=== PATIENT | male | born 1970 | race Caucasian/White ===

== ENCOUNTER 2017-06-21 11:23 | Inpatient (IN) | payer MEDICARE ==
--- NOTE | 2017-06-21 12:00 | ED Physician Documentation ---
PD HPI URI - Stated complaint Stated Complaint: COUGH - Chief complaint Chief Complaint: Cardiac - History obtained from History obtained from: Patient - History of Present Illness Timing - onset: How many weeks ago (2) Timing duration: Weeks (2) Timing details: Gradual onset, Still present Associated symptoms: Fever, Chills, Productive cough, Dyspnea. No: NVD, Bilateral edema Contributing factors: Travel (was ill in [place] and in hospital. Discharged and flew here to be with his brother for recovery. Got ill again after arrival here 3 days ago.) Improves by: No: Rest Worsened by: Activity Recently seen: Emergency Dept, Admitted (for pneumonia in [place], [place] ( [facility]).) Review of Systems Constitutional: denies: Fever, Chills Nose: reports: Rhinorrhea / runny nose, Congestion Throat: denies: Sore throat Cardiac: denies: Chest pain / pressure Respiratory: reports: Dyspnea, Cough, Wheezing GI: denies: Nausea, Vomiting, Diarrhea : denies: Dysuria Skin: denies: Rash, Lesions Musculoskeletal: denies: Neck pain, Back pain Neurologic: reports: Generalized weakness. denies: Focal weakness, Numbness, Near syncope Endocrine: reports: Easy bruising / bleeding. denies: Weight loss Immunocompromised: denies: Immunocompromised PD PAST MEDICAL HISTORY - Past Medical History Cardiovascular: Atrial fibrillation Respiratory: Asthma, Pneumonia Neuro: None Endocrine/Autoimmune: Type 2 diabetes - Present Medications Home Medications: Ambulatory Orders Medication Instructions Recorded Confirmed Aspirin [Adult Low Dose Aspirin EC] 81 mg PO DAILY 06/21/17 06/21/17 Bisoprolol Fumarate 10 mg PO DAILY 06/21/17 06/21/17 Digoxin 250 mg PO DAILY 06/21/17 06/21/17 Saxagliptin HCl/Metformin HCl 2.5 - 1,000 mg PO DAILY 06/21/17 06/21/17 [Kombiglyze Xr 2.5-1,000 mg Tab] Warfarin Sodium [Coumadin] 2 mg PO DAILY 06/21/17 06/21/17 - Allergies Allergies/Adverse Reactions: Allergies Allergy/AdvReac Type Severity Reaction Status Date / Time Penicillins Allergy Intermediate Rash Verified 06/21/17 12:07 - Family History Family history: reports: Non contributory PD ED PE NORMAL - Vitals Vital signs reviewed: Yes (low oxygen at 86-88% RA; improves on oxygen NC. ) - General General: Alert and oriented X 3, No acute distress, Well developed/nourished - HEENT HEENT: Ears normal, Pharynx benign - Neck Neck: Supple, no meningeal sign, No adenopathy - Respiratory Respiratory: No: Clear bilaterally (decreased left base with wheezing noted and local coarse sounds. ) - Abdomen Abdomen: Normal bowel sounds, Soft, Non tender, Non distended - Male Male : Deferred - Rectal Rectal: Deferred - Back Back: No CVA TTP - Derm Derm: Normal color - Extremities Extremities: No deformity, No tenderness to palpate, No calf tenderness / cord, Other (1+ edema in legs. ) Results - Vitals Vitals: Oxygen O2 Source Nasal cannula - Labs Labs: Microbiology 06/21/17 13:42 Blood Culture - Preliminary Blood NO GROWTH AFTER 1 DAY 06/21/17 11:50 Blood Culture - Preliminary Blood NO GROWTH AFTER 1 DAY 06/21/17 12:50 Gram Stain - Final Mouth Laboratory Tests 06/21/17 06/21/17 06/21/17 11:50 11:50 11:50 WBC 14.4 H RBC 3.84 L Hgb 9.3 L Hct 29.9 L MCV 77.8 L MCH 24.3 L MCHC 31.3 L RDW 17.7 H Plt Count 471 H MPV 8.5 Neut # 12.3 H Lymph # 0.8 L [place] # 1.2 H Eos # 0.0 Baso # 0.1 Absolute Nucleated RBC 0.01 Nucleated RBC % 0.1 PT INR Sodium 136 Potassium 4.8 Chloride 95 L Carbon Dioxide 27 Anion Gap 14.0 H BUN 10 Creatinine 0.8 Estimated GFR (MDRD) 103 Glucose 173 H POC Whole Bld Glucose Glycated Hemoglobin Estim Average Glucose Lactic Acid 2.0 Calcium 9.2 Magnesium 2.4 Total Bilirubin 1.4 H AST 102 H ALT 91 H Alkaline Phosphatase 244 H Total Protein 8.6 H Albumin 2.4 L Globulin 6.2 H Albumin/Globulin Ratio 0.4 L Lipase 28 Urine Color Urine Clarity Urine pH Ur Specific [place] Urine Protein Urine Glucose (UA) Urine Ketones Urine Occult Blood Urine Nitrite Urine Bilirubin Urine Urobilinogen Ur Leukocyte Esterase Urine RBC Urine WBC Ur Squamous Epith Cells Urine Bacteria Ur Microscopic Review Urine Culture Comments Last Dose Date Last Dose Time Digoxin Serum Ketones NEGATIVE 1206/21/17 06/21/17 11:50 11:53 11:55 WBC RBC Hgb Hct MCV MCH MCHC RDW Plt Count MPV Neut # Lymph # [place] # Eos # Baso # Absolute Nucleated RBC Nucleated RBC % PT INR Sodium Potassium Chloride Carbon Dioxide Anion Gap BUN Creatinine Estimated GFR (MDRD) Glucose POC Whole Bld Glucose 164 H Glycated Hemoglobin 8.8 H Estim Average Glucose 206 H Lactic Acid Calcium Magnesium Total Bilirubin AST ALT Alkaline Phosphatase Total Protein Albumin Globulin Albumin/Globulin Ratio Lipase Urine Color Urine Clarity Urine pH Ur Specific [place] Urine Protein Urine Glucose (UA) Urine Ketones Urine Occult Blood Urine Nitrite Urine Bilirubin Urine Urobilinogen Ur Leukocyte Esterase Urine RBC Urine WBC Ur Squamous Epith Cells Urine Bacteria Ur Microscopic Review Urine Culture Comments Last Dose Date UNKNOWN Last Dose Time UNKNOWN Digoxin 0.8 Serum Ketones 06/21/17 06/21/17 12:42 13:05 WBC RBC Hgb Hct MCV MCH MCHC RDW Plt Count MPV Neut # Lymph # [place] # Eos # Baso # Absolute Nucleated RBC Nucleated RBC % PT 70.1 H INR 6.7 H* Sodium Potassium Chloride Carbon Dioxide Anion Gap BUN Creatinine Estimated GFR (MDRD) Glucose POC Whole Bld Glucose Glycated Hemoglobin Estim Average Glucose Lactic Acid Calcium Magnesium Total Bilirubin AST ALT Alkaline Phosphatase Total Protein Albumin Globulin Albumin/Globulin Ratio Lipase Urine Color DARK YELLOW Urine Clarity CLEAR Urine pH 8.0 H Ur Specific [place] 1.020 Urine Protein 100 H Urine Glucose (UA) NEGATIVE Urine Ketones NEGATIVE Urine Occult Blood NEGATIVE Urine Nitrite NEGATIVE Urine Bilirubin NEGATIVE Urine Urobilinogen 4 H Ur Leukocyte Esterase NEGATIVE Urine RBC 0-5 Urine WBC 4-5 Ur Squamous Epith Cells RARE Squamous Urine Bacteria Rare Ur Microscopic Review INDICATED Urine Culture Comments NOT INDICATED Last Dose Date Last Dose Time Digoxin Serum Ketones - Rads (name of study) chest Radiology: Prelim report reviewed (considerable infiltrate and consolidation left lower lobe c/w pneumonia. ), EMP read contemporaneously PD MEDICAL DECISION MAKING - ED course Complexity details: reviewed old records (from [place], was hospitalized and Rx Levaquin IV for 3 days. ), reviewed results, considered differential, d/w patient, d/w library sales consultant Departure - Departure Disposition: 66 [facility] DC/Xfer Clinical Impression: Elevated INR, Hypoxia Atrial fibrillation Qualifiers: Atrial fibrillation type: chronic Qualified Code(s): I48.2 - Chronic atrial fibrillation Pneumonia Qualifiers: Pneumonia type: due to unspecified organism Laterality: left Lung location: lower lobe of lung Qualified Code(s): J18.1 - Lobar pneumonia, unspecified organism Dyspnea Qualifiers: Dyspnea type: shortness of breath Qualified Code(s): R06.02 - Shortness of breath Condition: Stable Record reviewed to determine appropriate education?: Yes Discharge Date/Time: 06/21/17 14:33
[2017-06-21] MEDS ORDERED: ACETAMINOPHEN 325 MG TABLET PO STA (12:25)
[2017-06-21] MEDS ORDERED: IPRATROPIUM/ALBUTEROL 3 ML NEB INH STA (12:40)
[2017-06-21 12:48] LABS: BASOPHILS # (AUTO) 0.1 10^3/uL (0.0-0.1); BASOPHILS % (AUTO) 0.9 %; EOSINOPHILS % (AUTO) 0.3 %; HGB - HEMOGLOBIN 9.3 g/dL (14.0-18.0); LYMPHOCYTES # (AUTO) 0.8 10^3/uL (1.5-3.5); LYMPHOCYTES % (AUTO) 5.6 %; MEAN CORPUSCULAR HEMOGLOBIN 24.3 pg (27.0-31.0); MEAN CORPUSCULAR HGB CONC 31.3 g/dL (32.0-36.0); MEAN CORPUSCULAR VOLUME 77.8 fL (80.0-94.0); MEAN PLATELET VOLUME 8.5 fL (7.4-11.4); MONOCYTES # (AUTO) 1.2 10^3/uL (0.0-1.0); MONOCYTES % (AUTO) 8.4 %; NEUTROPHILS # (AUTO) 12.3 10^3/uL (1.5-6.6); NEUTROPHILS % (AUTO) 84.8 %; PLT - PLATELET COUNT 471 10^3/uL (130-450); RED BLOOD COUNT 3.84 10^6/uL (4.70-6.10); RED CELL DISTRIBUTION WIDTH 17.7 % (12.0-15.0); WHITE BLOOD COUNT 14.4 x10^3/uL (4.8-10.8)
[2017-06-21 12:58] LABS: KETONES, SERUM (ACETEST) NEGATIVE (NEGATIVE)
[2017-06-21 12:59] LABS: ALBUMIN 2.4 g/dL (3.2-5.5); ALBUMIN/GLOBULIN RATIO 0.4 (1.0-2.2); ALKALINE PHOSPHATASE 244 IU/L (42-121); ALT ALANINE AMINOTRANSFERASE 91 IU/L (10-60); AST ASPARTATE AMINOTRANSFERASE 102 IU/L (10-42); BILIRUBIN,TOTAL 1.4 mg/dL (0.2-1.0); BUN - BLOOD UREA NITROGEN 10 mg/dL (6-20); CALCIUM 9.2 mg/dL (8.5-10.3); CARBON DIOXIDE - CO2 27 mmol/L (21-32); CHLORIDE 95 mmol/L (101-111); CREATININE 0.8 mg/dL (0.6-1.2); GFR - MDRD 103 (>89); GLUCOSE 173 mg/dL (70-100); LIPASE 28 U/L (22-51); MAGNESIUM 2.4 mg/dL (1.7-2.8); SODIUM 136 mmol/L (135-145); TOTAL PROTEIN 8.6 g/dL (6.7-8.2)
[2017-06-21 13:01] LABS: DIGOXIN 0.8 ng/mL
[2017-06-21 13:03] LABS: PT - PROTHROMBIN TIME 70.1 secs (9.9-12.6)
[2017-06-21 13:06] LABS: INR 6.7 (0.8-1.2)
--- NOTE | 2017-06-21 13:07 | XRAY Report ---
EXAM: CHEST RADIOGRAPHY EXAM DATE: 06/21/2017 12:59 PM. CLINICAL HISTORY: Cough. COMPARISON: None. TECHNIQUE: 2 views. FINDINGS: Lungs/Pleura: Extensive consolidation and partial atelectasis of left lower lobe probably with mild l eft pleural effusion. The right lung is clear. No pneumothorax. No vascular congestion. Mediastinum: No cardiomegaly. The left hilum is obscured. The right hilum and superior mediastinum ar e normal. Other: None. IMPRESSION: Extensive consolidation and partial atelectasis of left lower lobe probably with mild lef t pleural effusion. Findings may be due to lobar pneumonia. Follow-up after treatment is recommended to assure resolution and to rule out any possible occult mass lesion. If there is persistent opacity, CT chest will have to be considered. [facility] Referring Provider Line: [phone] SITE ID: [id number]
--- NOTE | 2017-06-21 13:07 | XRAY Preliminary Report ---
Exam: XR CHEST 2 VIEW PA/LAT IMPRESSION: Extensive consolidation and partial atelectasis of left lower lobe probably with mild lef t pleural effusion. Findings may be due to lobar pneumonia. Follow-up after treatment is recommended to assure resolution and to rule out any possible occult mass lesion. If there is persistent opacity, CT chest will have to be considered. [facility] SITE ID: [id number]
[2017-06-21 13:25] LABS: GLUCOSE, URINE (UA) NEGATIVE (NEGATIVE); KETONES,URINE (UA) NEGATIVE (NEGATIVE); LEUKOCYTE ESTERASE, URINE NEGATIVE (NEGATIVE); NITRITE,URINE NEGATIVE (NEGATIVE); OCCULT BLOOD,URINE NEGATIVE (NEGATIVE); PROTEIN,URINE 100 mg/dL (NEGATIVE); UROBILINOGEN,URINE 4 E.U./dL (NORMAL)
[2017-06-21 13:26] LABS: CLARITY,URINE CLEAR (CLEAR)
[2017-06-21 13:31] LABS: BILIRUBIN,URINE NEGATIVE (NEGATIVE); ICTOTEST,URINE NEGATIVE
[2017-06-21 13:41] LABS: RBC,URINE 0-5 /HPF (0-5); SQUAMOUS EPITHELIAL CELL,UR RARE Squamous (<= Few)
[2017-06-21] MEDS ORDERED: TEMAZEPAM 15 MG CAPSULE PO PRN (13:50)
[2017-06-21] MEDS ORDERED: HYDROcod/ACETAM 5/325 MG TABLET PO PRN (13:50)
[2017-06-21 14:29] LABS: HB2 TOTAL 10.2 g/dL; HEMOGLOBIN A1C 0.74 g/dL; HEMOGLOBIN A1C % 8.8 % (4.6-6.2)
[2017-06-21] MEDS: levoFLOXacin 750 MG/150 ML 750 MG/150 ML BAG IV SCH (15:38)
[2017-06-21] MEDS: INSULIN ASPART 300 UNIT/3 ML PEN SUBQ SCH ×2 (16:47→21:07)
[2017-06-21] MEDS: CEFEPIME 2 GM in SODIUM CHLORIDE 0.9% MINIBAG 100 ML IV SCH ×2 (17:18→21:05)
[2017-06-21] MEDS: SODIUM CHLORIDE FLUSH 0.9% 10 ML SYRINGE IVP PRN ×2 (17:52→21:44)
[2017-06-21] MEDS: ACETAMINOPHEN 325 MG TABLET PO PRN (19:32)
[2017-06-21] MEDS ORDERED: IOPAMIDOL-300 100 ML VIAL ONE (19:44)
[2017-06-21] MEDS ORDERED: IOPAMIDOL-300 50 ML VIAL ONE (19:45)
[2017-06-21] MEDS: SODIUM CHLORIDE FLUSH 0.9% 10 ML SYRINGE IVP SCH (21:05)
[2017-06-21] MEDS ORDERED: IOPAMIDOL-300 50 ML VIAL PO ONE (21:24)
[2017-06-21] MEDS ORDERED: IOPAMIDOL-300 100 ML VIAL IVP ONE (21:24)
--- NOTE | 2017-06-21 22:03 | CT Preliminary Report ---
Exam: CT CHEST W/ IMPRESSION: 1. Posterior loculated left pleural effusion with extensive posterior left lower lobe consolidation a nd scattered atelectasis in the remaining left lung. 2. Clear right lung. 3. Scattered borderline mediastinal lymph nodes, likely reactive. [facility] SITE ID: [id number]
--- NOTE | 2017-06-21 22:04 | CT Report ---
EXAM: CT CHEST EXAM DATE: 06/21/2017 09:36 PM. CLINICAL HISTORY: Dense pneumonia on CXR. COMPARISONS: None. TECHNIQUE: Routine helical CT imaging was performed through the chest. IV contrast: None. Reconstruct ions: Coronal and sagittal. In accordance with CT protocol optimization, one or more of the following dose reduction techniques w ere utilized for this exam: automated exposure control, adjustment of mA and/or KV based on patient s ize, or use of iterative reconstructive technique. FINDINGS: Lungs/Pleura: Loculated posterior left-sided effusion, with significant volume loss and consolidation in the posterior left lower lobe. Mild atelectasis in the aerated left lung. Clear right lung with n o effusion and no pneumothorax on either side. Mediastinum: Borderline mediastinal lymph nodes. No aortic enlargement. The heart and great vessels a re normal. Bones: Unremarkable. IMPRESSION: 1. Posterior loculated left pleural effusion with extensive posterior left lower lobe consolidation a nd scattered atelectasis in the remaining left lung. 2. Clear right lung. 3. Scattered borderline mediastinal lymph nodes, likely reactive. [facility] Referring Provider Line: [phone] SITE ID: [id number]
--- NOTE | 2017-06-21 22:15 | CT Report ---
EXAM: CT ABDOMEN AND PELVIS EXAM DATE: 06/21/2017 09:36 PM. CLINICAL HISTORY: Elevated LFTs and bili. COMPARISONS: None. TECHNIQUE: Routine helical CT imaging was performed through the abdomen and pelvis. IV contrast: 100 cc of Isovue-300. Enteric contrast: Yes. Reconstructions: Coronal and sagittal. In accordance with CT protocol optimization, one or more of the following dose reduction techniques w ere utilized for this exam: automated exposure control, adjustment of mA and/or KV based on patient s ize, or use of iterative reconstructive technique. FINDINGS: Liver: Normal. No masses. Gallbladder/Bile Ducts: Multiple gallstones. No dilated ducts. Spleen: Normal. Pancreas: Normal. Adrenal Glands: Normal. Kidneys: Small medial cortical cyst on the right, otherwise unremarkable. Peritoneal Cavity/Bowel: Normal. No free fluid, free air or adenopathy. No masses or acute inflammato ry process. The appendix is well visualized and normal. Pelvic Organs: The prostate and bladder are unremarkable. Vasculature: No aneurysms or other significant abnormality. Bones: No significant abnormality. Other: None. IMPRESSION: Gallstones fill the gallbladder. Otherwise unremarkable contrast CT of the abdomen and pe lvis. [facility] Referring Provider Line: [phone] SITE ID: [id number]
[2017-06-22] MEDS: CALCIUM CARBONATE CHEW 500 MG TABLET PO PRN (00:20)
[2017-06-22 05:17] LABS: BASOPHILS # (AUTO) 0.1 10^3/uL (0.0-0.1); BASOPHILS % (AUTO) 0.6 %; EOSINOPHILS % (AUTO) 0.2 %; LYMPHOCYTES # (AUTO) 0.9 10^3/uL (1.5-3.5); LYMPHOCYTES % (AUTO) 8.1 %; MEAN CORPUSCULAR HEMOGLOBIN 24.1 pg (27.0-31.0); MEAN CORPUSCULAR HGB CONC 30.6 g/dL (32.0-36.0); MEAN CORPUSCULAR VOLUME 78.9 fL (80.0-94.0); MEAN PLATELET VOLUME 7.8 fL (7.4-11.4); MONOCYTES # (AUTO) 1.2 10^3/uL (0.0-1.0); MONOCYTES % (AUTO) 10.8 %; NEUTROPHILS # (AUTO) 9.2 10^3/uL (1.5-6.6); NEUTROPHILS % (AUTO) 80.3 %; PLT - PLATELET COUNT 387 10^3/uL (130-450); RED BLOOD COUNT 3.72 10^6/uL (4.70-6.10); RED CELL DISTRIBUTION WIDTH 17.8 % (12.0-15.0); WHITE BLOOD COUNT 11.5 x10^3/uL (4.8-10.8)
[2017-06-22 05:23] LABS: CALCIUM 8.4 mg/dL (8.5-10.3); CREATININE 0.8 mg/dL (0.6-1.2)
[2017-06-22 05:27] LABS: PT - PROTHROMBIN TIME 90.7 secs (9.9-12.6)
[2017-06-22 05:36] LABS: INR 8.7 (0.8-1.2)
[2017-06-22] MEDS: SODIUM CHLORIDE FLUSH 0.9% 10 ML SYRINGE IVP SCH ×3 (05:58→21:09)
[2017-06-22] MEDS ORDERED: PHYTONADIONE 10 MG/ML AMP PO SCH (05:58)
[2017-06-22] MEDS: CEFEPIME 2 GM in SODIUM CHLORIDE 0.9% MINIBAG 100 ML IV SCH ×3 (06:12→21:06)
[2017-06-22] MEDS: ACETAMINOPHEN 325 MG TABLET PO PRN ×2 (06:13→21:06)
[2017-06-22 08:41] LABS: INR 9.2 (0.8-1.2)
[2017-06-22] MEDS: POLYETHYLENE GLYCOL 3350 17 GM PACKET PO SCH (08:53)
[2017-06-22] MEDS: INSULIN ASPART 300 UNIT/3 ML PEN SUBQ SCH ×4 (08:53→21:07)
[2017-06-22] MEDS: ASPIRIN EC 81 MG TABLET PO SCH (09:02)
[2017-06-22] MEDS: levoFLOXacin 750 MG/150 ML 750 MG/150 ML BAG IV SCH (09:02)
[2017-06-22] MEDS: METOPROLOL SUCCINATE 50 MG TABLET PO SCH (09:02)
[2017-06-22] MEDS: FAMOTIDINE 20 MG TABLET PO SCH (09:02)
[2017-06-22 09:34] LABS: BACTERIA,URINE Rare /HPF (None Seen)
[2017-06-22] MEDS: SODIUM CHLORIDE FLUSH 0.9% 10 ML SYRINGE IVP PRN ×3 (10:44→12:47)
[2017-06-22] MEDS: PROCHLORPERAZINE 10 MG/2 ML VIAL IVP PRN (12:47)
[2017-06-22] MEDS: ALBUTEROL NEB 2.5 MG/3 ML INH PRN ×3 (13:00→21:53)
--- NOTE | 2017-06-22 16:27 | PROVIDER PROGRESS NOTE ---
Assessment/Plan - Problem List (1) HCAP (healthcare-associated pneumonia) Assessment/Plan: Culture results pending Continue broad spectrum antibiotics Add Albuterol due to wheezing If pleural effusion persists after several days of trestment, may need drainage by interventional radiology (2) Elevated INR Assessment/Plan: PT DID TAKE A DOSE OF COUMADIN YESTERDAY AM BEFORE COMING TO HOSPITAL, which may be adding to the highr INR today, despite vit K Getting FFP today Will recheck INR this afternoon, then daily No EGD or colonoscopy planned by surgeon, due to severe wheezing and SOB at rest , therefore will correct INR down to therapeutic (3) Diabetes Assessment/Plan: Continue diet and ss Insulin coverage (4) Elevated LFTs Assessment/Plan: Etology sttill unclear as he has no abdominal symptoms and CT abd only showed gallstones but no GB or duct pathology. Perhaps Pt has passive Liver congestion, but no edema seen An Echo will be considered to eval R heart, especially since he had ASD repair as an adult (5) Atrial fibrillation Qualifiers: Atrial fibrillation type: chronic Qualified Code(s): I48.2 - Chronic atrial fibrillation Assessment/Plan: Heart rate is currently controlled No Coumadin til INR in therapeutic range (6) Anemia Assessment/Plan: Etiology unclear and a baseline H/H is not available Will continue to guaic stools Check Fe panel, B12 an Folate levels - Current Meds Current Meds: Current Medications Generic Name Dose Route Start Last Admin Trade Name Freq PRN Reason Stop Dose Admin Acetaminophen 650 mg 06/21/17 13:57 06/22/17 06:13 Tylenol PO 650 mg Q6H PRN Administration FEVER > 100.5 F Albuterol 2.5 mg 06/22/17 12:51 06/22/17 16:19 INH 2.5 mg RTQ4H PRN Administration Wheezing Aspirin 81 mg 06/22/17 09:00 06/22/17 09:02 Ecotrin PO 81 mg DAILY RICO Administration Calcium Carbonate/Glycine 500 mg 06/22/17 00:10 06/22/17 00:20 Tums PO 500 mg QID PRN Administration INDIGESTION Famotidine 20 mg 06/22/17 09:00 06/22/17 09:02 Pepcid PO 20 mg DAILY RICO Administration Cefepime HCl 2 gm/ Sodium 100 mls @ 200 mls/hr 06/21/17 16:00 06/22/17 15:24 Chloride IV Infused TID [facility] Infusion Levofloxacin 750 mg in 150 mls @ 100 mls/hr 06/21/17 15:00 06/22/17 11:32 Levaquin 750 Mg/150 Ml IV Infused DAILY [facility] Infusion Insulin Aspart 1 - 5 unit 06/21/17 17:00 06/22/17 11:43 Novolog SUBQ Not Given 0800,1200,1700,2100 [facility] Protocol Metoprolol Succinate 50 mg 06/22/17 09:00 06/22/17 09:02 Toprol Xl PO 50 mg DAILY [facility] Administration Polyethylene Glycol 17 gm 06/22/17 09:00 06/22/17 08:53 Miralax PO Not Given DAILY [facility] Prochlorperazine Edisylate 10 mg 06/21/17 13:50 06/22/17 12:47 Compazine Inj IVP 10 mg Q6HR PRN Administration Nausea / Vomiting Sodium Chloride 10 ml 06/21/17 13:50 06/22/17 12:47 Normal Saline Flush 0.9% IVP 10 ml PRN PRN Administration NEEDED PER PROVIDER ORDERS Sodium Chloride 10 ml 06/21/17 22:00 06/22/17 14:41 Normal Saline Flush 0.9% IVP 10 ml Q8HR RICO Administration - Lab Result Fish Bone Diagrams: 06/22/17 05:05 06/22/17 05:05 - Additional Planning My Orders: My Active Orders 06/21/17 16:00 Cefepime 2 gm Sodium Chloride 0.9% Minibag [Normal Saline 0.9% Minibag] 100 ml IV TID 06/21/17 17:00 Insulin Aspart [NovoLOG] 1 - 5 unit SUBQ 0800,1200,1700,2100 06/21/17 Dinner DIET [Carb-controlled Diet] [DIET] 06/22/17 GI Bleed/Tagged RBC [NM] Routine Guiaic [OCCULT BLOOD IN PAT. SINGLE] [RAPID] Urgent 06/22/17 09:00 Aspirin EC [Ecotrin] 81 mg PO DAILY Metoprolol Succinate [Toprol Xl] 50 mg PO DAILY 06/22/17 12:51 Nebulizer/MDI Tx. [RC] .q4prn Albuterol 2.5 mg INH RTQ4H PRN 06/22/17 13:25 guaiFENesin/DEXTROMETHORPHAN [Robitussin Dm] 10 ml PO Q6HR PRN 06/22/17 17:00 PT WITH INR [COAG] Timed 06/23/17 05:00 BMP - BASIC METABOLIC PANEL [CHEM] DAILYLAB CBC - COMP BLD CT W/AUTO DIFF [HEME] DAILYLAB LIVER PANEL [CHEM] DAILYLAB PT WITH INR [COAG] DAILYLAB Subjective - Subjective Patient Reports: Feeling Better Nursing Reports: Other (Wheezing) Objective Vital Signs: Vital Signs - 24 hr 06/21/17 06/21/17 06/21/17 19:19 23:19 23:52 Temperature 38.0 C H 37.3 C 36.9 C Heart Rate Heart Rate [ 101 H 103 H Brachial] Heart Rate [ 105 H Right] Respiratory 17 22 20 Rate Blood Pressure Blood Pressure 118/70 [Left Brachial artery] Blood Pressure 112/66 [Right Brachial artery] Blood Pressure 106/40 L [Right] O2 Saturation 95 95 98 06/22/17 06/22/17 06/22/17 06:00 06:30 07:20 Temperature 39.1 C H 38.4 C H 37.7 C H Heart Rate Heart Rate [ 112 H 114 H Brachial] Heart Rate [ Right] Respiratory 20 18 Rate Blood Pressure Blood Pressure 136/79 H 104/59 L [Left Brachial artery] Blood Pressure [Right Brachial artery] Blood Pressure [Right] O2 Saturation 96 94 06/22/17 06/22/17 06/22/17 10:40 10:55 10:59 Temperature 37.2 C 37.3 C 37.2 C Heart Rate 108 H 102 H 102 H Heart Rate [ Brachial] Heart Rate [ Right] Respiratory 18 18 20 Rate Blood Pressure 97/59 L 101/59 L 101/59 L Blood Pressure [Left Brachial artery] Blood Pressure [Right Brachial artery] Blood Pressure [Right] O2 Saturation 06/22/17 06/22/17 06/22/17 11:15 11:16 12:19 Temperature 37.3 C 37.4 C 37.3 C Heart Rate 91 90 Heart Rate [ 112 H Brachial] Heart Rate [ Right] Respiratory 20 18 20 Rate Blood Pressure 104/61 105/62 Blood Pressure 105/76 [Left Brachial artery] Blood Pressure [Right Brachial artery] Blood Pressure [Right] O2 Saturation 90 L 06/22/17 13:00 Temperature Heart Rate 108 H Heart Rate [ Brachial] Heart Rate [ Right] Respiratory 24 Rate Blood Pressure Blood Pressure [Left Brachial artery] Blood Pressure [Right Brachial artery] Blood Pressure [Right] O2 Saturation Oxygen O2 Source Nasal cannula I&O (Last 24 Hrs): Intake and Output Totals x24h 06/20/17 06/21/17 06/22/17 23:59 23:59 23:59 Intake Total 1070 1260 Output Total 900 450 Balance 170 810 General: Alert HEENT: Mucous membr. moist/pink Neck: Supple Neuro: Non Focal Cardiovascular: Regular rate, No murmurs Respiratory: Other (Scattered wheezes) Abdomen: Soft, No tenderness Extremities: No edema - Results Results: Laboratory Results WBC 11.5 x10^3/uL (4.8-10.8) H 06/22/17 05:05 RBC 3.72 10^6/uL (4.70-6.10) L 06/22/17 05:05 Hgb 9.0 g/dL (14.0-18.0) L 06/22/17 05:05 Hct 29.4 % (42.0-52.0) L 06/22/17 05:05 MCV 78.9 fL (80.0-94.0) L 06/22/17 05:05 MCH 24.1 pg (27.0-31.0) L 06/22/17 05:05 MCHC 30.6 g/dL (32.0-36.0) L 06/22/17 05:05 RDW 17.8 % (12.0-15.0) H 06/22/17 05:05 Plt Count 387 10^3/uL (130-450) 06/22/17 05:05 MPV 7.8 fL (7.4-11.4) 06/22/17 05:05 Neut # 9.2 10^3/uL (1.5-6.6) H 06/22/17 05:05 Lymph # 0.9 10^3/uL (1.5-3.5) L 06/22/17 05:05 [place] # 1.2 10^3/uL (0.0-1.0) H 06/22/17 05:05 Eos # 0.0 10^3/uL (0.0-0.7) 06/22/17 05:05 Baso # 0.1 10^3/uL (0.0-0.1) 06/22/17 05:05 Absolute Nucleated RBC 0.01 x10^3/uL 06/22/17 05:05 Nucleated RBC % 0.1 /100WBC 06/22/17 05:05 PT 95.0 secs (9.9-12.6) H 06/22/17 08:20 INR 9.2 (0.8-1.2) H* 06/22/17 08:20 Sodium 137 mmol/L (135-145) 06/22/17 05:05 Potassium 4.4 mmol/L (3.5-5.0) 06/22/17 05:05 Chloride 101 mmol/L (101-111) 06/22/17 05:05 Carbon Dioxide 25 mmol/L (21-32) 06/22/17 05:05 Anion Gap 11.0 (6-13) 06/22/17 05:05 BUN 13 mg/dL (6-20) 06/22/17 05:05 Creatinine 0.8 mg/dL (0.6-1.2) 06/22/17 05:05 Estimated GFR (MDRD) 103 (>89) 06/22/17 05:05 Glucose 106 mg/dL (70-100) H 06/22/17 05:05 POC Whole Bld Glucose 95 mg/dL (70 - 100) 06/22/17 11:37 Glycated Hemoglobin 8.8 % (4.6-6.2) H 06/21/17 11:55 Estim Average Glucose 206 (70-100) H 06/21/17 11:55 Lactic Acid 2.0 mmol/L (0.5-2.2) 06/21/17 11:50 Calcium 8.4 mg/dL (8.5-10.3) L 06/22/17 05:05 Magnesium 2.4 mg/dL (1.7-2.8) 06/21/17 11:50 Total Bilirubin 1.4 mg/dL (0.2-1.0) H 06/21/17 11:50 AST 102 IU/L (10-42) H 06/21/17 11:50 ALT 91 IU/L (10-60) H 06/21/17 11:50 Alkaline Phosphatase 244 IU/L (42-121) H 06/21/17 11:50 Total Protein 8.6 g/dL (6.7-8.2) H 06/21/17 11:50 Albumin 2.4 g/dL (3.2-5.5) L 06/21/17 11:50 Globulin 6.2 g/dL (2.1-4.2) H 06/21/17 11:50 Albumin/Globulin Ratio 0.4 (1.0-2.2) L 06/21/17 11:50 Lipase 28 U/L (22-51) 06/21/17 11:50 Urine Color DARK YELLOW 06/21/17 13:05 Urine Clarity CLEAR (CLEAR) 06/21/17 13:05 Urine pH 8.0 PH (5.0-7.5) H 06/21/17 13:05 Ur Specific [place] 1.020 (1.002-1.030) 06/21/17 13:05 Urine Protein 100 mg/dL (NEGATIVE) H 06/21/17 13:05 Urine Glucose (UA) NEGATIVE mg/dL (NEGATIVE) 06/21/17 13:05 Urine Ketones NEGATIVE mg/dL (NEGATIVE) 06/21/17 13:05 Urine Occult Blood NEGATIVE (NEGATIVE) 06/21/17 13:05 Urine Nitrite NEGATIVE (NEGATIVE) 06/21/17 13:05 Urine Bilirubin NEGATIVE (NEGATIVE) 06/21/17 13:05 Urine Urobilinogen 4 E.U./dL (NORMAL) H 06/21/17 13:05 Ur Leukocyte Esterase NEGATIVE (NEGATIVE) 06/21/17 13:05 Urine RBC 0-5 /HPF (0-5) 06/21/17 13:05 Urine WBC 4-5 /HPF (0-3) 06/21/17 13:05 Ur Squamous Epith Cells RARE Squamous (<= Few) 06/21/17 13:05 Urine Bacteria Rare /HPF (None Seen) 06/21/17 13:05 Ur Microscopic Review INDICATED 06/21/17 13:05 Urine Culture Comments NOT INDICATED 06/21/17 13:05 Last Dose Date UNKNOWN 06/21/17 11:50 Last Dose Time UNKNOWN 06/21/17 11:50 Digoxin 0.8 ng/mL 06/21/17 11:50 Serum Ketones NEGATIVE (NEGATIVE) 06/21/17 11:50 Blood Type A POSITIVE 06/22/17 08:20 Blood Type Recheck A POSITIVE 06/22/17 05:05
[2017-06-22] MEDS: guaiFENesin/DEXTROMETHORPHAN 10 ML UDC PO PRN ×2 (16:35→22:13)
--- NOTE | 2017-06-22 16:51 | HISTORY & PHYSICAL EXAMINATION ---
DATE OF SERVICE: 06/22/2017 Physician: Sharona Jose MD HISTORY OF PRESENT ILLNESS: This is a 46-year-old white male who lives in [place] and is visiting family members here, travelling with his mother. The patient has a history of atrial septal defect repair as an adult, atrial fibrillation for which he underwent 2 ablations, but these were unsuccessful and he is now in chronic A-fib, takes Coumadin. The patient was admitted for pneumonia in [place], [place], at the [facility], at which time , according to our ER doctor's review of the report, he received Levaquin IV for 3 days but was not discharged on any p.o. antibiotics. After arriving here by plane, he started to get worsening shortness of breath, dyspnea, sputum production of sputum, and a fever and chills, and this brought him to our emergency room. He has been diagnosed with pneumonia as well as multiple lab abnormalities and is admitted for management. MEDICATIONS Medications at home are: 1. Baby aspirin daily. 2. Bisoprolol 10 mg daily. 3. Digoxin 250 mcg p.o. daily. 4. Saxagliptin/metformin 2.10/999 mg p.o. daily. 5. Warfarin 2 mg p.o. daily. ALLERGIES: PENICILLINS, WHICH GIVES HIM A RASH. FAMILY HISTORY: His father of a demyelinating brain disease. His mother is alive and well. He is not . SOCIAL HISTORY: He never smoked, drinks no alcohol, and uses no illicit drugs. REVIEW OF SYSTEMS: A comprehensive review of system was done and is negative, except for what is reported above. PHYSICAL EXAMINATION GENERAL: Exam reveals a white male who is in mild respiratory distress, and he also appears fatigued and pale. VITAL SIGNS: Blood pressure 104/59, pulse is 114 in A-fib. Temperature is 37.7 , oxygen saturation 94% on 2 liters nasal cannula. HEENT: Wide set eyes, and he is wearing glasses. Oral mucosa is moist. He has a wet productive cough and audible wheezing even from across the room. NECK: His neck shows no JVD in a vertical position. No carotid bruits, thyromegaly, or lymphadenopathy. CHEST: Diminished breath sounds at both There is scattered wheezing anteriorly. CARDIAC: Heart sounds are normal without audible murmur. There is a mid sternal scar which is old and healed. ABDOMEN: Soft with positive bowel sounds. No organomegaly. Nontender. EXTREMITIES: No clubbing, cyanosis or edema. NEUROLOGIC: Grossly intact. LABORATORY/DATA Sodium 136, potassium 4.8, BUN 10, creatinine 0.8, anion gap is elevated at 14, and lactic acid is 2.0. Bilirubin is elevated at 1.4, AST elevated at 102, ALT elevated at 91, alk phos elevated at 244. Albumin low at 2.4, blood glucose is 164. HbA1c is 8.8. INR is 6.7. White blood count 14.4 with a left shift, hemoglobin 9.3, MCV low at 77. Digoxin level was 0.8. Urinalysis showed a pH of 8 with high protein, but negative leukocyte esterase, rare white blood cells , and rare bacteria. Chest x-ray: Extensive consolidation and partial atelectasis of the left lower lobe and a mild left pleural effusion. EKG: Atrial fibrillation with a rate of 111, diffusely flat T waves, no previous EKG for comparison. IMPRESSION/DIAGNOSES 1. Healthcare-acquired pneumonia versus community-acquired pneumonia incompletely treated at another hospital. 2. Chronic A-fib with rapid rate. 3. Elevated INR, which is likely from his antibiotic use plus abnormal liver function. 4. Diabetes, on oral agents. 5. Anemia of unknown etiology - rule out GI bleed. 6. Elevated liver tests and bilirubin. 7. History of ASD repair. ASSESSMENT AND PLAN: Place the patient on telemetry. Treat with broad- spectrum IV antibiotics: Cefepime and levofloxacin will be used. Correct the elevated INR with vitamin K and if needed, FFP. Follow his INR. Stop the Coumadin. Continue with his cardiac medications, especially for rate control. Follow his CBC for a drop in Hgb and heme test his stool. Obtain a surgical consult for possible EGD and colonoscopy. Obtain a CT of the chest and abdomen with contrast to evaluate the significant lobar consolidation plus effusion, and his liver and gallbladder because of the abnormal blood tests. Diabetic diet will be ordered and possibly changed to n.p.o. or clear liquids plus a bowel prep if the surgeon is planning to do scoping. Deep venous thrombosis prophylaxis: SCDs, no Lovenox or heparin because of the INR that is elevated. CODE STATUS: FULL CODE. ATTESTATION: It is expected that the patient will be discharged and/or transferred to another facility at 96 hours: Yes. TD: 06/22/2017 17:32 STEF
[2017-06-22 17:24] LABS: PT - PROTHROMBIN TIME 42.6 secs (9.9-12.6)
[2017-06-23 05:41] LABS: BASOPHILS # (AUTO) 0.1 10^3/uL (0.0-0.1); BASOPHILS % (AUTO) 0.5 %; EOSINOPHILS % (AUTO) 0.1 %; HGB - HEMOGLOBIN 8.5 g/dL (14.0-18.0); LYMPHOCYTES # (AUTO) 1.2 10^3/uL (1.5-3.5); LYMPHOCYTES % (AUTO) 12.1 %; MEAN CORPUSCULAR HEMOGLOBIN 24.4 pg (27.0-31.0); MEAN CORPUSCULAR HGB CONC 31.2 g/dL (32.0-36.0); MEAN CORPUSCULAR VOLUME 78.3 fL (80.0-94.0); MEAN PLATELET VOLUME 7.9 fL (7.4-11.4); MONOCYTES % (AUTO) 9.6 %; NEUTROPHILS # (AUTO) 7.8 10^3/uL (1.5-6.6); NEUTROPHILS % (AUTO) 77.7 %; PLT - PLATELET COUNT 328 10^3/uL (130-450); RED BLOOD COUNT 3.48 10^6/uL (4.70-6.10)
[2017-06-23 05:44] LABS: INR 2.9 (0.8-1.2); PT - PROTHROMBIN TIME 31.1 secs (9.9-12.6)
[2017-06-23 05:56] LABS: ALBUMIN 2.1 g/dL (3.2-5.5); BILIRUBIN,DIRECT 0.3 mg/dL (0.1-0.5); BILIRUBIN,TOTAL 0.8 mg/dL (0.2-1.0); CALCIUM 8.4 mg/dL (8.5-10.3); CREATININE 0.7 mg/dL (0.6-1.2); TOTAL PROTEIN 7.3 g/dL (6.7-8.2)
[2017-06-23] MEDS: CEFEPIME 2 GM in SODIUM CHLORIDE 0.9% MINIBAG 100 ML IV SCH ×3 (06:54→22:07)
[2017-06-23] MEDS: SODIUM CHLORIDE FLUSH 0.9% 10 ML SYRINGE IVP SCH ×3 (06:55→22:08)
[2017-06-23] MEDS: ALBUTEROL NEB 2.5 MG/3 ML INH PRN ×2 (07:06→11:07)
--- NOTE | 2017-06-23 08:33 | XRAY Report ---
EXAM: CHEST RADIOGRAPHY, PORTABLE ONE VIEW EXAM DATE: 06/23/2017 07:56 AM. CLINICAL HISTORY: Worsening shortness of breath in a 46-year-old male. COMPARISON: Contrast-enhanced chest CT of 06/21/2017. Two-view chest of the same date. TECHNIQUE: 0745 hours AP upright portable view. FINDINGS: Lungs/Pleura: Suboptimal inspiratory effort. Persistent moderate to large left pleural effusion with consolidation throughout the majority of the left lung. No significant infiltrate or effusion right c hest. No pneumothorax bilaterally. Mediastinum: Moderate cardiomegaly with postsurgical changes. Left-sided cardiac pacemaker and leads in stable and satisfactory position. Other: Trachea is midline. Osseous structures show no acute process. Median sternotomy wires are inta ct. IMPRESSION: Ongoing changes of likely left-sided pneumonia with moderate large left pleural effusion, unchanged over the past 2 days. Diagnostic and therapeutic left chest thoracentesis should be consid ered, if this has not already been performed. NAYELY Referring Provider Line: [phone] SITE ID: [id number]
[2017-06-23 08:40] LABS: ABG BASE EXCESS 0.3 mmol/L (-2.0-3.0); ABG HCO3 24.9 mmol/L (22.0-26.0); ABG OXYGEN SATURATION 95 % (94-98); ABG PCO2 40 mmHg (34-45); ABG PH 7.41 (7.35-7.45); ABG PO2 77 mmHg (80-100); ABG TCO2 26.1 MMOL/L (21.0-29.0); ALLEN TEST POSITIVE
[2017-06-23] MEDS: INSULIN ASPART 300 UNIT/3 ML PEN SUBQ SCH ×4 (09:08→21:09)
[2017-06-23] MEDS: SODIUM CHLORIDE FLUSH 0.9% 10 ML SYRINGE IVP PRN ×4 (09:09→20:01)
[2017-06-23] MEDS: guaiFENesin/DEXTROMETHORPHAN 10 ML UDC PO PRN ×3 (09:59→22:06)
[2017-06-23] MEDS: levoFLOXacin 750 MG/150 ML 750 MG/150 ML BAG IV SCH (09:59)
[2017-06-23] MEDS: ASPIRIN EC 81 MG TABLET PO SCH (10:01)
[2017-06-23] MEDS: FAMOTIDINE 20 MG TABLET PO SCH (10:01)
[2017-06-23] MEDS: POLYETHYLENE GLYCOL 3350 17 GM PACKET PO SCH (10:01)
[2017-06-23] MEDS: METOPROLOL SUCCINATE 50 MG TABLET PO SCH (10:01)
[2017-06-23] MEDS ORDERED: SODIUM CHLORIDE INHALATION 3 ML NEB INH PRN (11:32)
[2017-06-23] MEDS: OSELTAMIVIR 75 MG CAPSULE PO SCH ×2 (12:30→22:04)
[2017-06-23] MEDS: VANCOMYCIN 2 GM/NS 500 ML 2 GM/500 ML BAG IV SCH ×2 (12:30→23:41)
[2017-06-23] MEDS: LEVALBUTEROL 1.25 MG/3 ML NEB INH PRN ×2 (15:02→21:04)
[2017-06-23] MEDS: BENZONATATE 100 MG CAPSULE PO PRN ×2 (16:22→22:06)
[2017-06-23] MEDS ORDERED: SODIUM CHLORIDE 0.9% 500 ML IV ONE (17:07)
[2017-06-23] MEDS: SODIUM CHLORIDE 0.9% 1,000 ML IV SCH (18:15)
--- NOTE | 2017-06-23 19:02 | PROVIDER PROGRESS NOTE ---
Assessment/Plan - Problem List (1) Respiratory failure with hypoxia Qualifiers: Chronicity: acute Qualified Code(s): J96.01 - Acute respiratory failure with hypoxia Assessment/Plan: Secondary to HCAP, flu and loculated pleural effusion CXR today shows effusion still there Surgery consulted but rec IR to do thoracentesis IR not available over the weekend Continued hypoxia and coughing Monitor closely if worsening will need transfer for thoracentesis (2) HCAP (healthcare-associated pneumonia) Assessment/Plan: Patient on cefepime and levaquin Not improving and has loculated pleural effusion Will change abx to Vanco and Cefepime given positive flu risk of staph pneumonia Continue O2 Continue nebs MOntior closely (3) Influenza A Assessment/Plan: Flu PCR positive Start tamiflu today despite it being greater than 48 hours since symptoms started given patient is not improving O2 as needed (4) Anemia Assessment/Plan: Hb 8.5 down for 9.3 Likely GI bleed given elevated INR Surgery said no to scoping given ongoing resp failure with hypoxia Monitor hb (5) Atrial fibrillation Qualifiers: Atrial fibrillation type: chronic Qualified Code(s): I48.2 - Chronic atrial fibrillation Assessment/Plan: A fib with RVR ON metoprolol Will give IV dose Monitor on tele Patient had episode of v tach for over 10 secs today Resolved spontaneously COntinues to be tachy will give IVFs and monitor (6) Diabetes Qualifiers: Diabetes mellitus type: type 2 Assessment/Plan: BG controlled COntinue DM diet and SS insulin (7) Elevated INR Assessment/Plan: Improving down to 2.9 Likely secondary to levaquin as outpatient - Current Meds Current Meds: Current Medications Generic Name Dose Route Start Last Admin Trade Name Freq PRN Reason Stop Dose Admin Acetaminophen 650 mg 06/21/17 13:57 06/22/17 21:06 Tylenol PO 650 mg Q6H PRN Administration FEVER > 100.5 F Aspirin 81 mg 06/22/17 09:00 06/23/17 10:01 Ecotrin PO 81 mg DAILY RICO Administration Benzonatate 100 mg 06/23/17 09:17 06/23/17 16:22 Tessalon PO 100 mg TID PRN Administration Cough Calcium Carbonate/Glycine 500 mg 06/22/17 00:10 06/22/17 00:20 Tums PO 500 mg QID PRN Administration INDIGESTION Famotidine 20 mg 06/22/17 09:00 06/23/17 10:01 Pepcid PO 20 mg DAILY RICO Administration Guaifenesin 10 ml 06/22/17 13:25 06/23/17 16:22 Robitussin Dm PO 10 ml Q6HR PRN Administration Cough Cefepime HCl 2 gm/ Sodium 100 mls @ 200 mls/hr 06/21/17 16:00 06/23/17 16:19 Chloride IV Infused TID RICO Infusion Vancomycin/Sodium Chloride 2 gm in 500 mls @ 250 mls/hr 06/23/17 12:00 15:00 Vanco/Sod Chloride 0.9% IV Infused Q12H RICO Infusion Sodium Chloride 1,000 mls @ 125 mls/hr 06/23/17 18:00 06/23/17 18:15 Normal Saline 0.9% IV 125 mls/hr .Q8H RICO Administration Insulin Aspart 1 - 5 unit 06/21/17 17:00 06/23/17 17:16 Novolog SUBQ Not Given 0800,1200,1700,2100 [facility] Protocol Levalbuterol HCl 1.25 mg 06/23/17 11:32 06/23/17 15:02 Xopenex INH 1.25 mg Q4H PRN Administration Wheezing Metoprolol Succinate 50 mg 06/22/17 09:00 06/23/17 10:01 Toprol Xl PO 50 mg DAILY RICO Administration Oseltamivir Phosphate 75 mg 06/23/17 12:00 06/23/17 12:30 Tamiflu PO 06/27/17 21:01 75 mg BID RICO Administration Polyethylene Glycol 17 gm 06/22/17 09:00 06/23/17 10:01 Miralax PO Not Given DAILY [facility] Prochlorperazine Edisylate 10 mg 06/21/17 13:50 06/22/17 12:47 Compazine Inj IVP 10 mg Q6HR PRN Administration Nausea / Vomiting Sodium Chloride 10 ml 06/21/17 13:50 06/23/17 17:23 Normal Saline Flush 0.9% IVP 10 ml PRN PRN Administration NEEDED PER PROVIDER ORDERS Sodium Chloride 10 ml 06/21/17 22:00 06/23/17 16:19 Normal Saline Flush 0.9% IVP Not Given Q8HR RICO Temazepam 15 mg 06/21/17 13:50 06/22/17 21:06 Restoril PO 15 mg QPM PRN Administration Insomnia - Lab Result Lab results reviewed: Yes Fish Bone Diagrams: 06/23/17 05:20 06/23/17 05:20 - Diagnostic Imaging Results Diagnostic Imaging Results: Final report reviewed - Additional Planning Condition/Complexity: Guarded My Orders: My Active Orders 06/25/17 05:00 CBC - COMP BLD CT W/AUTO DIFF [HEME] DAILYLAB CMP, RFLX TO IONIZED CA IF [CHEM] DAILYLAB MAGNESIUM [CHEM] DAILYLAB PHOSPHORUS [CHEM] DAILYLAB PT WITH INR [COAG] DAILYLAB 06/25/17 11:30 VANCOMYCIN TROUGH [CHEM] Timed 06/26/17 05:00 CBC - COMP BLD CT W/AUTO DIFF [HEME] DAILYLAB CMP, RFLX TO IONIZED CA IF [CHEM] DAILYLAB MAGNESIUM [CHEM] DAILYLAB PHOSPHORUS [CHEM] DAILYLAB PT WITH INR [COAG] DAILYLAB 06/23/17 CELL COUNT, BF [BF] Routine CUL, ANAEROBIC (QUEST) [REFLAB] Routine 06/23/17 08:00 Echo [Echo Transthoracic Complete] [ECHO] Stat 06/23/17 09:07 Miscellaneous Laboratory Order [LAB] Urgent 06/23/17 09:17 Benzonatate [Tessalon] 100 mg PO TID PRN 06/23/17 11:32 Levalbuterol [Xopenex] 1.25 mg INH Q4H PRN 06/23/17 12:00 Oseltamivir [Tamiflu] 75 mg PO BID Vancomycin 2 gm/Ns 500 ml [Vanco/Sod Chloride 0.9%] 2 gm in 500 ml IV Q12H 06/23/17 18:00 Sodium Chloride 0.9% [Normal Saline 0.9%] 1,000 ml IV 125 mls/hr 06/24/17 05:00 CBC - COMP BLD CT W/AUTO DIFF [HEME] DAILYLAB CMP, RFLX TO IONIZED CA IF [CHEM] DAILYLAB MAGNESIUM [CHEM] DAILYLAB PHOSPHORUS [CHEM] DAILYLAB PT WITH INR [COAG] DAILYLAB Consult/Specialty: Surgery Plan Discussed with:: Patient Time Spent: 31-60 minutes Subjective - Subjective Patient Reports: Cough (Worsening), Shortness of Breath (Worsening) Nursing Reports: Cough Objective Vital Signs: Vital Signs - 24 hr 06/22/17 06/22/17 06/23/17 19:50 21:45 00:43 Temperature 39.4 C H 37.2 C Heart Rate 80 Heart Rate [ 115 H 113 H Brachial] Respiratory 22 20 20 Rate Blood Pressure [Left Brachial artery] Blood Pressure 137/80 H 106/57 L [Right Brachial artery] O2 Saturation 92 93 06/23/17 06/23/17 06/23/17 06:00 07:06 08:10 Temperature 37.6 C H 37.4 C Heart Rate 120 H Heart Rate [ 118 H 119 H Brachial] Respiratory 20 22 22 Rate Blood Pressure 117/76 120/61 [Left Brachial artery] Blood Pressure [Right Brachial artery] O2 Saturation 93 96 06/23/17 06/23/17 06/23/17 11:07 13:17 15:02 Temperature 37.4 C Heart Rate 124 H 121 H Heart Rate [ 118 H Brachial] Respiratory 20 20 24 Rate Blood Pressure 117/68 [Left Brachial artery] Blood Pressure [Right Brachial artery] O2 Saturation 96 06/23/17 06/23/17 15:44 16:17 Temperature 37.5 C Heart Rate Heart Rate [ 120 H Brachial] Respiratory 18 18 Rate Blood Pressure 103/60 107/83 H [Left Brachial artery] Blood Pressure [Right Brachial artery] O2 Saturation 97 Oxygen O2 Source Nasal cannula I&O (Last 24 Hrs): Intake and Output Totals x24h 06/21/17 06/22/17 06/23/17 23:59 23:59 23:59 Intake Total 1070 2560 2130 Output Total 900 450 400 Balance 170 2110 1730 General: Alert, Oriented x3, Moderate distress (SOA and coughing) HEENT: Atraumatic, PERRLA, EOMI, Other (dryt) Neck: Supple, No JVD, No thyromegaly, +2 carotid pulse wo bruit Lymphatic: no adenopathy Neuro: Alert, Non Focal, CN 2-12 Grossly Intact, Oriented Times 3 Cardiovascular: No murmurs, Other (tachy, irregular) Respiratory: Chest non-tender, Rales, Rhonchi Abdomen: Normal bowel sounds, Soft, No tenderness, No hepatospenomegaly Extremities: No clubbing, No cyanosis, No edema, Normal pulses Skin: No rashes, No breakdown - Results Results: Laboratory Results WBC 10.0 x10^3/uL (4.8-10.8) 06/23/17 05:20 RBC 3.48 10^6/uL (4.70-6.10) L 06/23/17 05:20 Hgb 8.5 g/dL (14.0-18.0) L 06/23/17 05:20 Hct 27.2 % (42.0-52.0) L 06/23/17 05:20 MCV 78.3 fL (80.0-94.0) L 06/23/17 05:20 MCH 24.4 pg (27.0-31.0) L 06/23/17 05:20 MCHC 31.2 g/dL (32.0-36.0) L 06/23/17 05:20 RDW 18.0 % (12.0-15.0) H 06/23/17 05:20 Plt Count 328 10^3/uL (130-450) 06/23/17 05:20 MPV 7.9 fL (7.4-11.4) 06/23/17 05:20 Neut # 7.8 10^3/uL (1.5-6.6) H 06/23/17 05:20 Lymph # 1.2 10^3/uL (1.5-3.5) L 06/23/17 05:20 [place] # 1.0 10^3/uL (0.0-1.0) 06/23/17 05:20 Eos # 0.0 10^3/uL (0.0-0.7) 06/23/17 05:20 Baso # 0.1 10^3/uL (0.0-0.1) 06/23/17 05:20 Absolute Nucleated RBC 0.02 x10^3/uL 06/23/17 05:20 Nucleated RBC % 0.2 /100WBC 06/23/17 05:20 PT 31.1 secs (9.9-12.6) H 06/23/17 05:20 INR 2.9 (0.8-1.2) H 06/23/17 05:20 Bld Gas Analysis Time 0832 06/23/17 08:32 Sample Site RIGHT RADIAL 06/23/17 08:32 ABG pH 7.41 (7.35-7.45) 06/23/17 08:32 ABG pCO2 40 mmHg (34-45) 06/23/17 08:32 ABG pO2 77 mmHg (80-100) L 06/23/17 08:32 ABG HCO3 24.9 mmol/L (22.0-26.0) 06/23/17 08:32 ABG Total CO2 26.1 MMOL/L (21.0-29.0) 06/23/17 08:32 ABG O2 Saturation 95 % (94-98) 06/23/17 08:32 ABG Base Excess 0.3 mmol/L (-2.0-3.0) 06/23/17 08:32 Fidel Test POSITIVE 06/23/17 08:32 O2 Liters/Min 2.50 LPM 06/23/17 08:32 Sodium 140 mmol/L (135-145) 06/23/17 05:20 Potassium 4.0 mmol/L (3.5-5.0) 06/23/17 05:20 Chloride 103 mmol/L (101-111) 06/23/17 05:20 Carbon Dioxide 26 mmol/L (21-32) 06/23/17 05:20 Anion Gap 11.0 (6-13) 06/23/17 05:20 BUN 11 mg/dL (6-20) 06/23/17 05:20 Creatinine 0.7 mg/dL (0.6-1.2) 06/23/17 05:20 Estimated GFR (MDRD) 120 (>89) 06/23/17 05:20 Glucose 120 mg/dL (70-100) H 06/23/17 05:20 POC Whole Bld Glucose 101 mg/dL (70 - 100) H 06/23/17 16:35 Glycated Hemoglobin 8.8 % (4.6-6.2) H 06/21/17 11:55 Estim Average Glucose 206 (70-100) H 06/21/17 11:55 Lactic Acid 2.0 mmol/L (0.5-2.2) 06/21/17 11:50 Calcium 8.4 mg/dL (8.5-10.3) L 06/23/17 05:20 Magnesium 2.4 mg/dL (1.7-2.8) 06/21/17 11:50 Total Bilirubin 0.8 mg/dL (0.2-1.0) 06/23/17 05:20 Direct Bilirubin 0.3 mg/dL (0.1-0.5) 06/23/17 05:20 AST 95 IU/L (10-42) H 06/23/17 05:20 ALT 73 IU/L (10-60) H 06/23/17 05:20 Alkaline Phosphatase 198 IU/L (42-121) H 06/23/17 05:20 Total Protein 7.3 g/dL (6.7-8.2) 06/23/17 05:20 Albumin 2.1 g/dL (3.2-5.5) L 06/23/17 05:20 Globulin 5.2 g/dL (2.1-4.2) H 06/23/17 05:20 Albumin/Globulin Ratio 0.4 (1.0-2.2) L 06/21/17 11:50 Lipase 28 U/L (22-51) 06/21/17 11:50 Vitamin B12 462 pg/mL (180-914) 06/23/17 05:20 Folate 38.00 ng/mL (5.90 - >24.8) 06/23/17 05:20 Urine Color DARK YELLOW 06/21/17 13:05 Urine Clarity CLEAR (CLEAR) 06/21/17 13:05 Urine pH 8.0 PH (5.0-7.5) H 06/21/17 13:05 Ur Specific [place] 1.020 (1.002-1.030) 06/21/17 13:05 Urine Protein 100 mg/dL (NEGATIVE) H 06/21/17 13:05 Urine Glucose (UA) NEGATIVE mg/dL (NEGATIVE) 06/21/17 13:05 Urine Ketones NEGATIVE mg/dL (NEGATIVE) 06/21/17 13:05 Urine Occult Blood NEGATIVE (NEGATIVE) 06/21/17 13:05 Urine Nitrite NEGATIVE (NEGATIVE) 06/21/17 13:05 Urine Bilirubin NEGATIVE (NEGATIVE) 06/21/17 13:05 Urine Urobilinogen 4 E.U./dL (NORMAL) H 06/21/17 13:05 Ur Leukocyte Esterase NEGATIVE (NEGATIVE) 06/21/17 13:05 Urine RBC 0-5 /HPF (0-5) 06/21/17 13:05 Urine WBC 4-5 /HPF (0-3) 06/21/17 13:05 Ur Squamous Epith Cells RARE Squamous (<= Few) 06/21/17 13:05 Urine Bacteria Rare /HPF (None Seen) 06/21/17 13:05 Ur Microscopic Review INDICATED 06/21/17 13:05 Urine Culture Comments NOT INDICATED 06/21/17 13:05 Last Dose Date UNKNOWN 06/21/17 11:50 Last Dose Time UNKNOWN 06/21/17 11:50 Digoxin 0.8 ng/mL 06/21/17 11:50 Serum Ketones NEGATIVE (NEGATIVE) 06/21/17 11:50 Influenza A (Rapid) POSITIVE (Negative) H 06/23/17 10:45 Influenza B (Rapid) Negative (Negative) 06/23/17 10:45 Influenza Types A,B Ag + H 06/23/17 10:45 Blood Type A POSITIVE 06/22/17 08:20 Blood Type Recheck A POSITIVE 06/22/17 05:05
[2017-06-23] MEDS ORDERED: METOPROLOL 5 MG/5 ML VIAL IVP SCH (19:08)
[2017-06-24] MEDS: METOPROLOL 5 MG/5 ML VIAL IVP PRN ×3 (01:43→18:53)
[2017-06-24] MEDS: LEVALBUTEROL 1.25 MG/3 ML NEB INH PRN ×2 (03:26→08:00)
[2017-06-24] MEDS: SODIUM CHLORIDE 0.9% 1,000 ML IV SCH ×3 (04:48→18:18)
[2017-06-24] MEDS: SODIUM CHLORIDE FLUSH 0.9% 10 ML SYRINGE IVP SCH ×3 (05:31→18:02)
[2017-06-24 05:38] LABS: BASOPHILS % (AUTO) 0.2 %; EOSINOPHILS % (AUTO) 0.3 %; HGB - HEMOGLOBIN 8.6 g/dL (14.0-18.0); LYMPHOCYTES # (AUTO) 1.5 10^3/uL (1.5-3.5); LYMPHOCYTES % (AUTO) 14.4 %; MEAN CORPUSCULAR HEMOGLOBIN 24.3 pg (27.0-31.0); MEAN CORPUSCULAR HGB CONC 30.5 g/dL (32.0-36.0); MEAN CORPUSCULAR VOLUME 79.6 fL (80.0-94.0); MEAN PLATELET VOLUME 7.9 fL (7.4-11.4); MONOCYTES # (AUTO) 0.8 10^3/uL (0.0-1.0); MONOCYTES % (AUTO) 7.7 %; NEUTROPHILS % (AUTO) 77.4 %; PLT - PLATELET COUNT 308 10^3/uL (130-450); RED BLOOD COUNT 3.55 10^6/uL (4.70-6.10); RED CELL DISTRIBUTION WIDTH 17.8 % (12.0-15.0); WHITE BLOOD COUNT 10.4 x10^3/uL (4.8-10.8)
[2017-06-24 05:40] LABS: INR 2.2 (0.8-1.2); PT - PROTHROMBIN TIME 23.9 secs (9.9-12.6)
[2017-06-24 05:55] LABS: MAGNESIUM 2.3 mg/dL (1.7-2.8)
[2017-06-24 06:06] LABS: ALBUMIN 2.1 g/dL (3.2-5.5); ALBUMIN/GLOBULIN RATIO 0.4 (1.0-2.2); ALKALINE PHOSPHATASE 249 IU/L (42-121); ALT ALANINE AMINOTRANSFERASE 80 IU/L (10-60); AST ASPARTATE AMINOTRANSFERASE 121 IU/L (10-42); BILIRUBIN,TOTAL 0.8 mg/dL (0.2-1.0); BUN - BLOOD UREA NITROGEN 8 mg/dL (6-20); CALCIUM 8.1 mg/dL (8.5-10.3); CARBON DIOXIDE - CO2 25 mmol/L (21-32); CHLORIDE 104 mmol/L (101-111); CREATININE 0.7 mg/dL (0.6-1.2); GFR - MDRD 120 (>89); GLUCOSE 118 mg/dL (70-100); SODIUM 141 mmol/L (135-145); TOTAL PROTEIN 7.6 g/dL (6.7-8.2)
[2017-06-24 06:17] LABS: VBG PH 7.327 (7.31-7.41)
[2017-06-24] MEDS: CEFEPIME 2 GM in SODIUM CHLORIDE 0.9% MINIBAG 100 ML IV SCH ×2 (06:39→17:01)
[2017-06-24] MEDS: FERROUS SULFATE 325 MG TABLET PO SCH ×2 (06:39→17:01)
[2017-06-24] MEDS: BENZONATATE 100 MG CAPSULE PO PRN ×2 (06:44→11:52)
[2017-06-24] MEDS: guaiFENesin/DEXTROMETHORPHAN 10 ML UDC PO PRN ×3 (06:45→18:51)
[2017-06-24] MEDS: INSULIN ASPART 300 UNIT/3 ML PEN SUBQ SCH ×4 (08:04→22:06)
[2017-06-24] MEDS: OSELTAMIVIR 75 MG CAPSULE PO SCH ×2 (08:36→22:04)
[2017-06-24] MEDS: FAMOTIDINE 20 MG TABLET PO SCH (08:36)
[2017-06-24] MEDS: METOPROLOL SUCCINATE 50 MG TABLET PO SCH (08:36)
[2017-06-24] MEDS: POLYETHYLENE GLYCOL 3350 17 GM PACKET PO SCH (08:36)
[2017-06-24] MEDS: ASPIRIN EC 81 MG TABLET PO SCH (08:46)
[2017-06-24] MEDS: VANCOMYCIN 2 GM/NS 500 ML 2 GM/500 ML BAG IV SCH (12:34)
[2017-06-24] MEDS: SODIUM CHLORIDE FLUSH 0.9% 10 ML SYRINGE IVP PRN ×3 (12:44→18:53)
--- NOTE | 2017-06-24 15:16 | PROVIDER PROGRESS NOTE ---
Assessment/Plan - Problem List (1) Respiratory failure with hypoxia Qualifiers: Chronicity: acute Qualified Code(s): J96.01 - Acute respiratory failure with hypoxia Assessment/Plan: Secondary to HCAP, flu and loculated pleural effusion Patient continues to have bad cough, increased hypoxia up to 4L was down to 3L this morning Patient had no fevers last 24 hours and WBC improved Surgery consulted but rec IR to do thoracentesis IR not available over the weekend Spoke with patient today about possible transfer to get thoracentesis sooner but patient would rather wait and feels he can get through next 2 days Told the patient that if he gets any worse then we would need to transfer for urgent thoracentesis Guarded condition (2) HCAP (healthcare-associated pneumonia) Assessment/Plan: Patient on Vanco and cefepime No fevers over last 24 hours but clinically not much improvement Patient has loculated pleural effusion and needs thoracentesis but we are awaiting IR to do procedure on Sunday Continue O2 Continue nebs Montior closely (3) Influenza A Assessment/Plan: Flu PCR positive Tamiflu day 2 despite it being greater than 48 hours since symptoms started given patient is not improving O2 as needed (4) Anemia Assessment/Plan: Hb 8.6 down from 9.3 Likely GI bleed given elevated INR Surgery said no to scoping given ongoing resp failure with hypoxia but patient needs scope in the future Holding coumadin On H2 jose Iron is low will start Iron supplement today Monitor hb (5) Atrial fibrillation Qualifiers: Atrial fibrillation type: chronic Qualified Code(s): I48.2 - Chronic atrial fibrillation Assessment/Plan: A fib with RVR On metoprolol PO 50 mg and IV prn Monitor on tele Will increased PO metoprolol to 75 mg HR better controlled today (6) Diabetes Qualifiers: Diabetes mellitus type: type 2 Assessment/Plan: BG controlled COntinue DM diet and SS insulin (7) Elevated INR Assessment/Plan: Improving down to 2.2 Likely secondary to levaquin as outpatient - Current Meds Current Meds: Current Medications Generic Name Dose Route Start Last Admin Trade Name Freq PRN Reason Stop Dose Admin Acetaminophen 650 mg 06/21/17 13:57 06/22/17 21:06 Tylenol PO 650 mg Q6H PRN Administration FEVER > 100.5 F Aspirin 81 mg 06/22/17 09:00 06/24/17 08:46 Ecotrin PO 81 mg DAILY RICO Administration Benzonatate 100 mg 06/23/17 09:17 06/24/17 11:52 Tessalon PO 100 mg TID PRN Administration Cough Calcium Carbonate/Glycine 500 mg 06/22/17 00:10 06/22/17 00:20 Tums PO 500 mg QID PRN Administration INDIGESTION Famotidine 20 mg 06/22/17 09:00 06/24/17 08:36 Pepcid PO 20 mg DAILY RICO Administration Ferrous Sulfate 325 mg 06/24/17 07:00 06/24/17 06:39 Feosol PO 325 mg BIDWM RICO Administration Guaifenesin 10 ml 06/22/17 13:25 06/24/17 12:30 Robitussin Dm PO 10 ml Q6HR PRN Administration Cough Cefepime HCl 2 gm/ Sodium 100 mls @ 200 mls/hr 06/21/17 16:00 06/24/17 07:09 Chloride IV Infused TID RICO Infusion Vancomycin/Sodium Chloride 2 gm in 500 mls @ 250 mls/hr 06/23/17 12:00 12:34 Vanco/Sod Chloride 0.9% IV 250 mls/hr Q12H RICO Administration Sodium Chloride 1,000 mls @ 125 mls/hr 06/23/17 18:00 06/24/17 12:39 Normal Saline 0.9% IV 0 mls/hr .Q8H RICO Infusion Insulin Aspart 1 - 5 unit 06/21/17 17:00 06/24/17 11:26 Novolog SUBQ Not Given 0800,1200,1700,2100 [facility] Protocol Levalbuterol HCl 1.25 mg 06/23/17 11:32 06/24/17 08:00 Xopenex INH 1.25 mg Q4H PRN Administration Wheezing Metoprolol Tartrate 5 mg 06/24/17 00:39 06/24/17 12:42 Lopressor Inj IVP 5 mg Q6H PRN Administration Tachycardia Oseltamivir Phosphate 75 mg 06/23/17 12:00 06/24/17 08:36 Tamiflu PO 06/27/17 21:01 75 mg BID RICO Administration Polyethylene Glycol 17 gm 06/22/17 09:00 06/24/17 08:36 Miralax PO Not Given DAILY R[place] Prochlorperazine Edisylate 10 mg 06/21/17 13:50 06/22/17 12:47 Compazine Inj IVP 10 mg Q6HR PRN Administration Nausea / Vomiting Sodium Chloride 10 ml 06/21/17 13:50 06/24/17 12:44 Normal Saline Flush 0.9% IVP 20 ml PRN PRN Administration NEEDED PER PROVIDER ORDERS Sodium Chloride 10 ml 06/21/17 22:00 06/24/17 05:31 Normal Saline Flush 0.9% IVP Not Given Q8HR [place] Temazepam 15 mg 06/21/17 13:50 06/22/17 21:06 Restoril PO 15 mg QPM PRN Administration Insomnia - Lab Result Lab results reviewed: Yes Fish Bone Diagrams: 06/24/17 05:10 06/24/17 05:10 - Diagnostic Imaging Results Diagnostic Imaging Results: Final report reviewed - Additional Planning Condition/Complexity: Guarded My Orders: My Active Orders 06/25/17 05:00 CBC - COMP BLD CT W/AUTO DIFF [HEME] DAILYLAB CMP, RFLX TO IONIZED CA IF [CHEM] DAILYLAB MAGNESIUM [CHEM] DAILYLAB PHOSPHORUS [CHEM] DAILYLAB PT WITH INR [COAG] DAILYLAB 06/25/17 09:00 Metoprolol Succinate [Toprol Xl] 75 mg PO DAILY 06/25/17 11:30 VANCOMYCIN TROUGH [CHEM] Timed 06/26/17 05:00 CBC - COMP BLD CT W/AUTO DIFF [HEME] DAILYLAB CMP, RFLX TO IONIZED CA IF [CHEM] DAILYLAB MAGNESIUM [CHEM] DAILYLAB PHOSPHORUS [CHEM] DAILYLAB PT WITH INR [COAG] DAILYLAB 06/23/17 18:00 Sodium Chloride 0.9% [Normal Saline 0.9%] 1,000 ml IV 125 mls/hr 06/24/17 07:00 Ferrous Sulfate [Feosol] 325 mg PO BIDWM 06/24/17 13:39 Chest 2 View PA/LAT [XR] Routine Consult/Specialty: Surgery Plan Discussed with:: Patient Time Spent: 31-60 minutes Subjective - Subjective Patient Reports: Cough (Worse than yesterday), Shortness of Breath (States he feels it is slightly better or about the same), Other (No fevers or chills) Nursing Reports: No Complaints Objective Vital Signs: Vital Signs - 24 hr 06/23/17 06/23/17 06/23/17 15:44 16:17 19:52 Temperature 37.5 C 37.5 C Heart Rate Heart Rate [ 120 H 117 H Brachial] Heart Rate [ Right] Respiratory 18 18 18 Rate Blood Pressure Blood Pressure 103/60 107/83 H 107/66 [Left Brachial artery] Blood Pressure [Right Brachial artery] O2 Saturation 97 98 06/23/17 06/23/17 06/23/17 19:56 20:03 20:05 Temperature Heart Rate Heart Rate [ 103 H 105 H Brachial] Heart Rate [ Right] Respiratory Rate Blood Pressure 107/66 Blood Pressure 101/63 101/61 [Left Brachial artery] Blood Pressure [Right Brachial artery] O2 Saturation 95 06/23/17 06/23/17 06/23/17 20:10 20:15 20:46 Temperature Heart Rate Heart Rate [ 115 H 97 Brachial] Heart Rate [ 105 H Right] Respiratory Rate Blood Pressure Blood Pressure 107/55 L 112/73 108/74 [Left Brachial artery] Blood Pressure [Right Brachial artery] O2 Saturation 95 97 06/23/17 06/23/17 06/23/17 21:05 21:11 22:10 Temperature Heart Rate 116 H Heart Rate [ 116 H 119 H Brachial] Heart Rate [ Right] Respiratory 20 19 Rate Blood Pressure Blood Pressure 117/74 [Left Brachial artery] Blood Pressure [Right Brachial artery] O2 Saturation 93 94 06/24/17 06/24/17 06/24/17 00:14 01:43 01:52 Temperature 37.0 C Heart Rate Heart Rate [ 116 H Brachial] Heart Rate [ 105 H Right] Respiratory 20 Rate Blood Pressure 114/66 Blood Pressure 116/49 L 100/65 [Left Brachial artery] Blood Pressure [Right Brachial artery] O2 Saturation 93 06/24/17 06/24/17 06/24/17 01:56 02:01 02:06 Temperature Heart Rate Heart Rate [ Brachial] Heart Rate [ 105 H 111 H 106 H Right] Respiratory Rate Blood Pressure Blood Pressure 104/61 103/65 120/76 [Left Brachial artery] Blood Pressure [Right Brachial artery] O2 Saturation 06/24/17 06/24/17 06/24/17 02:13 02:25 02:40 Temperature Heart Rate Heart Rate [ 109 H 103 H Brachial] Heart Rate [ Right] Respiratory Rate Blood Pressure 120/76 Blood Pressure 114/67 100/97 H [Left Brachial artery] Blood Pressure [Right Brachial artery] O2 Saturation 06/24/17 06/24/17 06/24/17 02:55 03:28 05:41 Temperature 37.1 C Heart Rate 115 H Heart Rate [ 114 H Brachial] Heart Rate [ 112 H Right] Respiratory 22 18 Rate Blood Pressure Blood Pressure 116/79 109/77 [Left Brachial artery] Blood Pressure [Right Brachial artery] O2 Saturation 100 06/24/17 06/24/17 06/24/17 07:42 08:01 11:46 Temperature 37.3 C 37.2 C Heart Rate 112 H Heart Rate [ 114 H 105 H Brachial] Heart Rate [ Right] Respiratory 26 H 24 20 Rate Blood Pressure Blood Pressure 114/73 114/70 [Left Brachial artery] Blood Pressure [Right Brachial artery] O2 Saturation 95 94 06/24/17 06/24/17 06/24/17 11:51 12:42 12:47 Temperature Heart Rate Heart Rate [ 95 116 H 107 H Brachial] Heart Rate [ Right] Respiratory 26 H 20 Rate Blood Pressure 116/69 Blood Pressure 112/70 116/69 114/73 [Left Brachial artery] Blood Pressure [Right Brachial artery] O2 Saturation 99 90 L 06/24/17 06/24/17 06/24/17 12:52 12:55 13:15 Temperature Heart Rate Heart Rate [ 103 H 103 H 103 H Brachial] Heart Rate [ Right] Respiratory 20 Rate Blood Pressure Blood Pressure 107/76 108/72 [Left Brachial artery] Blood Pressure 115/76 [Right Brachial artery] O2 Saturation 94 96 Oxygen O2 Source Nasal cannula I&O (Last 24 Hrs): Intake and Output Totals x24h 06/22/17 06/23/17 06/24/17 23:59 23:59 23:59 Intake Total 2560 3019.583 2718.333 Output Total 450 400 250 Balance 2110 2619.583 2468.333 General: Alert, Oriented x3, Moderate distress (Short of breath with coughing spells) HEENT: Atraumatic, PERRLA, EOMI, Mucous membr. moist/pink Neck: Supple, No JVD, No thyromegaly, +2 carotid pulse wo bruit, No LAD Lymphatic: no adenopathy Neuro: Alert, Non Focal, CN 2-12 Grossly Intact, Oriented Times 3 Cardiovascular: No murmurs, Other (Tachy, irregular) Respiratory: Chest non-tender, Wheezes (scattered), Rales (Left lung), Rhonchi ( Bilateraly), Other (Decreased breath sounds on the left) Abdomen: Normal bowel sounds, Soft, No tenderness, No hepatospenomegaly Extremities: No clubbing, No cyanosis, No edema, Normal pulses Skin: No rashes, No breakdown - Results Results: Laboratory Results WBC 10.4 x10^3/uL (4.8-10.8) 06/24/17 05:10 RBC 3.55 10^6/uL (4.70-6.10) L 06/24/17 05:10 Hgb 8.6 g/dL (14.0-18.0) L 06/24/17 05:10 Hct 28.2 % (42.0-52.0) L 06/24/17 05:10 MCV 79.6 fL (80.0-94.0) L 06/24/17 05:10 MCH 24.3 pg (27.0-31.0) L 06/24/17 05:10 MCHC 30.5 g/dL (32.0-36.0) L 06/24/17 05:10 RDW 17.8 % (12.0-15.0) H 06/24/17 05:10 Plt Count 308 10^3/uL (130-450) 06/24/17 05:10 MPV 7.9 fL (7.4-11.4) 06/24/17 05:10 Neut # 8.0 10^3/uL (1.5-6.6) H 06/24/17 05:10 Lymph # 1.5 10^3/uL (1.5-3.5) 06/24/17 05:10 [place] # 0.8 10^3/uL (0.0-1.0) 06/24/17 05:10 Eos # 0.0 10^3/uL (0.0-0.7) 06/24/17 05:10 Baso # 0.0 10^3/uL (0.0-0.1) 06/24/17 05:10 Absolute Nucleated RBC 0.01 x10^3/uL 06/24/17 05:10 Nucleated RBC % 0.1 /100WBC 06/24/17 05:10 PT 23.9 secs (9.9-12.6) H 06/24/17 05:10 INR 2.2 (0.8-1.2) H 06/24/17 05:10 Bld Gas Analysis Time 0832 06/23/17 08:32 Sample Site RIGHT RADIAL 06/23/17 08:32 ABG pH 7.41 (7.35-7.45) 06/23/17 08:32 ABG pCO2 40 mmHg (34-45) 06/23/17 08:32 ABG pO2 77 mmHg (80-100) L 06/23/17 08:32 ABG HCO3 24.9 mmol/L (22.0-26.0) 06/23/17 08:32 ABG Total CO2 26.1 MMOL/L (21.0-29.0) 06/23/17 08:32 ABG O2 Saturation 95 % (94-98) 06/23/17 08:32 ABG Base Excess 0.3 mmol/L (-2.0-3.0) 06/23/17 08:32 Fidel Test POSITIVE 06/23/17 08:32 VBG pH 7.327 (7.31-7.41) 06/24/17 05:10 Ionized Calcium 1.12 mmol/L (1.15-1.33) L 06/24/17 05:10 O2 Liters/Min 2.50 LPM 06/23/17 08:32 Sodium 141 mmol/L (135-145) 06/24/17 05:10 Potassium 3.7 mmol/L (3.5-5.0) 06/24/17 05:10 Chloride 104 mmol/L (101-111) 06/24/17 05:10 Carbon Dioxide 25 mmol/L (21-32) 06/24/17 05:10 Anion Gap 12.0 (6-13) 06/24/17 05:10 BUN 8 mg/dL (6-20) 06/24/17 05:10 Creatinine 0.7 mg/dL (0.6-1.2) 06/24/17 05:10 Estimated GFR (MDRD) 120 (>89) 06/24/17 05:10 Glucose 118 mg/dL (70-100) H 06/24/17 05:10 POC Whole Bld Glucose 131 mg/dL (70 - 100) H 06/24/17 11:19 Glycated Hemoglobin 8.8 % (4.6-6.2) H 06/21/17 11:55 Estim Average Glucose 206 (70-100) H 06/21/17 11:55 Lactic Acid 2.0 mmol/L (0.5-2.2) 06/21/17 11:50 Calcium 8.1 mg/dL (8.5-10.3) L 06/24/17 05:10 Ionized Calcium YES 06/24/17 05:10 Phosphorus 2.0 mg/dL (2.5-4.6) L 06/24/17 05:10 Magnesium 2.3 mg/dL (1.7-2.8) 06/24/17 05:10 Iron 7 ug/dL (45-182) L 06/24/17 05:10 TIBC 224 ug/dL (250-450) L 06/24/17 05:10 % Saturation 3 % (20-50) L 06/24/17 05:10 Transferrin 160 mg/dL (180-329) L 06/24/17 05:10 Total Bilirubin 0.8 mg/dL (0.2-1.0) 06/24/17 05:10 Direct Bilirubin 0.3 mg/dL (0.1-0.5) 06/23/17 05:20 AST 121 IU/L (10-42) H 06/24/17 05:10 ALT 80 IU/L (10-60) H 06/24/17 05:10 Alkaline Phosphatase 249 IU/L (42-121) H 06/24/17 05:10 Total Protein 7.6 g/dL (6.7-8.2) 06/24/17 05:10 Albumin 2.1 g/dL (3.2-5.5) L 06/24/17 05:10 Globulin 5.5 g/dL (2.1-4.2) H 06/24/17 05:10 Albumin/Globulin Ratio 0.4 (1.0-2.2) L 06/24/17 05:10 Lipase 28 U/L (22-51) 06/21/17 11:50 Vitamin B12 462 pg/mL (180-914) 06/23/17 05:20 Folate 38.00 ng/mL (5.90 - >24.8) 06/23/17 05:20 Urine Color DARK YELLOW 06/21/17 13:05 Urine Clarity CLEAR (CLEAR) 06/21/17 13:05 Urine pH 8.0 PH (5.0-7.5) H 06/21/17 13:05 Ur Specific [place] 1.020 (1.002-1.030) 06/21/17 13:05 Urine Protein 100 mg/dL (NEGATIVE) H 06/21/17 13:05 Urine Glucose (UA) NEGATIVE mg/dL (NEGATIVE) 06/21/17 13:05 Urine Ketones NEGATIVE mg/dL (NEGATIVE) 06/21/17 13:05 Urine Occult Blood NEGATIVE (NEGATIVE) 06/21/17 13:05 Urine Nitrite NEGATIVE (NEGATIVE) 06/21/17 13:05 Urine Bilirubin NEGATIVE (NEGATIVE) 06/21/17 13:05 Urine Urobilinogen 4 E.U./dL (NORMAL) H 06/21/17 13:05 Ur Leukocyte Esterase NEGATIVE (NEGATIVE) 06/21/17 13:05 Urine RBC 0-5 /HPF (0-5) 06/21/17 13:05 Urine WBC 4-5 /HPF (0-3) 06/21/17 13:05 Ur Squamous Epith Cells RARE Squamous (<= Few) 06/21/17 13:05 Urine Bacteria Rare /HPF (None Seen) 06/21/17 13:05 Ur Microscopic Review INDICATED 06/21/17 13:05 Urine Culture Comments NOT INDICATED 06/21/17 13:05 Last Dose Date UNKNOWN 06/21/17 11:50 Last Dose Time UNKNOWN 06/21/17 11:50 Digoxin 0.8 ng/mL 06/21/17 11:50 Serum Ketones NEGATIVE (NEGATIVE) 06/21/17 11:50 Influenza A (Rapid) POSITIVE (Negative) H 06/23/17 10:45 Influenza B (Rapid) Negative (Negative) 06/23/17 10:45 Influenza Types A,B Ag + H 06/23/17 10:45 Blood Type A POSITIVE 06/22/17 08:20 Blood Type Recheck A POSITIVE 06/22/17 05:05
--- NOTE | 2017-06-24 15:24 | XRAY Preliminary Report ---
Exam: XR CHEST 2 VIEW PA/LAT IMPRESSION: 1. Developing right basilar opacity. This may be atelectasis versus developing airspace process such as pneumonia. 2. Stable opacities in the left mid to lower lung, combination of consolidation and pleural effusion s. Some of the pleural effusions are loculated. [facility] SITE ID: [id number]
--- NOTE | 2017-06-24 15:25 | XRAY Report ---
EXAM: CHEST RADIOGRAPHY EXAM DATE: 06/24/2017 02:11 PM. CLINICAL HISTORY: Worsening hypoxia and shortness of breath. COMPARISON: 06/23/2017. TECHNIQUE: 2 views. FINDINGS: Lungs/Pleura: Developing right basilar opacity. Otherwise, no N significant change from prior examina tion. Again seen are opacities in the left mid to lower lung, combination of consolidation and pleura l effusions. Again seen are loculated components of the pleural effusion. Mediastinum: Heart and mediastinal contours are unremarkable. Other: Dual-lead pacemaker is stable in position with lead tips in the regions of the right atrial ap pendage and right ventricle. Sternotomy wires are intact. IMPRESSION: 1. Developing right basilar opacity. This may be atelectasis versus developing airspace process such as pneumonia. 2. Stable opacities in the left mid to lower lung, combination of consolidation and pleural effusion s. Some of the pleural effusions are loculated. [facility] Referring Provider Line: [phone] SITE ID: [id number]
[2017-06-24] MEDS: ACETAMINOPHEN 325 MG TABLET PO PRN (22:05)
[2017-06-25] MEDS: SODIUM CHLORIDE 0.9% 1,000 ML IV SCH ×2 (00:28→11:45)
[2017-06-25] MEDS: CEFEPIME 2 GM in SODIUM CHLORIDE 0.9% MINIBAG 100 ML IV SCH ×4 (00:40→23:51)
[2017-06-25] MEDS: VANCOMYCIN 2 GM/NS 500 ML 2 GM/500 ML BAG IV SCH ×2 (01:31→12:01)
[2017-06-25 05:44] LABS: BASOPHILS % (AUTO) 0.2 %; EOSINOPHILS % (AUTO) 0.4 %; HGB - HEMOGLOBIN 7.8 g/dL (14.0-18.0); LYMPHOCYTES # (AUTO) 2.3 10^3/uL (1.5-3.5); LYMPHOCYTES % (AUTO) 17.8 %; MEAN CORPUSCULAR HGB CONC 30.1 g/dL (32.0-36.0); MEAN CORPUSCULAR VOLUME 79.8 fL (80.0-94.0); MEAN PLATELET VOLUME 8.4 fL (7.4-11.4); MONOCYTES # (AUTO) 0.8 10^3/uL (0.0-1.0); MONOCYTES % (AUTO) 5.8 %; NEUTROPHILS # (AUTO) 9.8 10^3/uL (1.5-6.6); NEUTROPHILS % (AUTO) 75.8 %; PLT - PLATELET COUNT 257 10^3/uL (130-450); RED BLOOD COUNT 3.26 10^6/uL (4.70-6.10); RED CELL DISTRIBUTION WIDTH 18.4 % (12.0-15.0)
[2017-06-25 05:46] LABS: ALBUMIN/GLOBULIN RATIO 0.4 (1.0-2.2); ALKALINE PHOSPHATASE 289 IU/L (42-121); ALT ALANINE AMINOTRANSFERASE 74 IU/L (10-60); AST ASPARTATE AMINOTRANSFERASE 123 IU/L (10-42); BUN - BLOOD UREA NITROGEN 7 mg/dL (6-20); CALCIUM 7.6 mg/dL (8.5-10.3); CARBON DIOXIDE - CO2 23 mmol/L (21-32); CHLORIDE 109 mmol/L (101-111); CREATININE 0.6 mg/dL (0.6-1.2); GFR - MDRD 144 (>89); GLUCOSE 99 mg/dL (70-100); MAGNESIUM 2.1 mg/dL (1.7-2.8); PHOSPHORUS 1.8 mg/dL (2.5-4.6); SODIUM 140 mmol/L (135-145); TOTAL PROTEIN 6.7 g/dL (6.7-8.2)
[2017-06-25 05:52] LABS: INR 2.4 (0.8-1.2); PT - PROTHROMBIN TIME 26.3 secs (9.9-12.6)
[2017-06-25 06:02] LABS: VBG PH 7.381 (7.31-7.41)
[2017-06-25] MEDS: SODIUM CHLORIDE FLUSH 0.9% 10 ML SYRINGE IVP SCH ×5 (06:20→23:51)
[2017-06-25] MEDS: ASPIRIN EC 81 MG TABLET PO SCH (09:03)
[2017-06-25] MEDS: FAMOTIDINE 20 MG TABLET PO SCH (09:03)
[2017-06-25] MEDS: FERROUS SULFATE 325 MG TABLET PO SCH ×2 (09:03→16:27)
[2017-06-25] MEDS: INSULIN ASPART 300 UNIT/3 ML PEN SUBQ SCH ×4 (09:03→20:34)
[2017-06-25] MEDS: METOPROLOL SUCCINATE 50 MG TABLET PO SCH (09:04)
[2017-06-25] MEDS: POLYETHYLENE GLYCOL 3350 17 GM PACKET PO SCH (09:04)
[2017-06-25] MEDS: OSELTAMIVIR 75 MG CAPSULE PO SCH ×2 (09:04→20:35)
--- NOTE | 2017-06-25 10:00 | XRAY Report ---
EXAM: CHEST RADIOGRAPHY EXAM DATE: 06/25/2017 09:31 AM. CLINICAL HISTORY: F/U pneumonia. COMPARISON: 06/24/2017 1346 hrs.. TECHNIQUE: 1 view. FINDINGS: Lungs/Pleura: Lower lung volumes. Increased left sided pulmonary opacity suggesting moderate effusion and atelectasis and/or consolidation. Similar patchy opacity at the lower right lung. There is somew hat sharply marginated opacity at the left apex which may reflect relatively conspicuous demarcation of atelectasis or consolidation however small pneumothorax is not excluded. Suggest PA and lateral ch est radiograph for further evaluation. Mediastinum: Within exam limitations, the cardiomediastinal contour is stable from prior. Other: None. IMPRESSION: 1. Lower lung volumes. Increased left-sided opacity suggesting moderate effusion and atelectasis and/ or consolidation. Similar patchy opacity at the right lower lung. 2. Somewhat sharply marginated opacity at the left apex may reflect relatively conspicuous demarcatio n of atelectasis or consolidation however small pneumothorax is not excluded. Suggest PA and lateral chest radiograph for further evaluation. [facility] The above findings were discussed with Dr. Jose by Dr. Florencio Sparks at 09:59 hrs on 06/25/17. Referring Provider Line: [phone] SITE ID: [id number]
[2017-06-25] MEDS: LEVALBUTEROL 1.25 MG/3 ML NEB INH PRN (10:35)
[2017-06-25] MEDS: guaiFENesin/DEXTROMETHORPHAN 10 ML UDC PO PRN ×2 (10:53→17:02)
[2017-06-25 12:04] LABS: VANCOMYCIN,TROUGH 32.7 ug/mL (5.0-15.0)
[2017-06-25] MEDS: BENZONATATE 100 MG CAPSULE PO PRN ×2 (13:38→20:45)
[2017-06-25] MEDS: FUROSEMIDE 20 MG/2 ML VIAL IVP SCH (14:54)
[2017-06-25] MEDS: SODIUM CHLORIDE FLUSH 0.9% 10 ML SYRINGE IVP PRN ×2 (14:54→16:18)
--- NOTE | 2017-06-25 18:08 | PROVIDER PROGRESS NOTE ---
Assessment/Plan - Problem List (1) HCAP (healthcare-associated pneumonia) Assessment/Plan: Continue broad spectrum antiboiotics and inhalers Vanco also added Tamiflu also started Will add Acapella and Chest PT, possibly hypoventilating from Muscular Dystrophy (2) Elevated INR Assessment/Plan: Corrected Continue Coumadin and INR checks (3) Diabetes Qualifiers: Diabetes mellitus type: type 2 Assessment/Plan: Contniue diet and meds (4) Elevated LFTs Assessment/Plan: I suspect Pt has R sided heart failure He is overall 11 L pos in fluid balance today! Will start iv diuretic bid (5) Atrial fibrillation Qualifiers: Atrial fibrillation type: chronic Qualified Code(s): I48.2 - Chronic atrial fibrillation Assessment/Plan: Rate control is OK Continue Coumadin (6) Anemia Assessment/Plan: Now I susoect hemodilution as he is 11 L positive and Hgb dropped from 9.3 at admission to 7.8 today Start iv diuretic bid - Current Meds Current Meds: Current Medications Generic Name Dose Route Start Last Admin Trade Name Freq PRN Reason Stop Dose Admin Acetaminophen 650 mg 06/21/17 13:57 06/24/17 22:05 Tylenol PO 650 mg Q6H PRN Administration FEVER > 100.5 F Aspirin 81 mg 06/22/17 09:00 06/25/17 09:03 Ecotrin PO 81 mg DAILY RICO Administration Benzonatate 100 mg 06/23/17 09:17 06/25/17 13:38 Tessalon PO 100 mg TID PRN Administration Cough Calcium Carbonate/Glycine 500 mg 06/22/17 00:10 06/22/17 00:20 Tums PO 500 mg QID PRN Administration INDIGESTION Famotidine 20 mg 06/22/17 09:00 06/25/17 09:03 Pepcid PO 20 mg DAILY RICO Administration Ferrous Sulfate 325 mg 06/24/17 07:00 06/25/17 16:27 Feosol PO 325 mg BIDWM RICO Administration Furosemide 20 mg 06/25/17 14:00 06/25/17 14:54 Lasix Inj 20mg Vial IVP 20 mg BIDDIURETIC RICO Administration Guaifenesin 10 ml 06/22/17 13:25 06/25/17 17:02 Robitussin Dm PO 10 ml Q6HR PRN Administration Cough Cefepime HCl 2 gm/ Sodium 100 mls @ 200 mls/hr 06/24/17 16:00 06/25/17 16:55 Chloride IV Infused Q8H RICO Infusion Insulin Aspart 1 - 5 unit 06/21/17 17:00 06/25/17 16:29 Novolog SUBQ Not Given 0800,1200,1700,2100 [facility] Protocol Levalbuterol HCl 1.25 mg 06/23/17 11:32 06/25/17 10:35 Xopenex INH 1.25 mg Q4H PRN Administration Wheezing Metoprolol Succinate 75 mg 06/25/17 09:00 06/25/17 09:04 Toprol Xl PO 75 mg DAILY RICO Administration Metoprolol Tartrate 5 mg 06/24/17 00:39 06/24/17 18:53 Lopressor Inj IVP 5 mg Q6H PRN Administration Tachycardia Oseltamivir Phosphate 75 mg 06/23/17 12:00 06/25/17 09:04 Tamiflu PO 06/27/17 21:01 75 mg BID RICO Administration Polyethylene Glycol 17 gm 06/22/17 09:00 06/25/17 09:04 Miralax PO Not Given DAILY [facility] Prochlorperazine Edisylate 10 mg 06/21/17 13:50 06/22/17 12:47 Compazine Inj IVP 10 mg Q6HR PRN Administration Nausea / Vomiting Sodium Chloride 10 ml 06/21/17 13:50 06/25/17 16:18 Normal Saline Flush 0.9% IVP 10 ml PRN PRN Administration NEEDED PER PROVIDER ORDERS Sodium Chloride 10 ml 06/21/17 22:00 06/25/17 17:02 Normal Saline Flush 0.9% IVP 10 ml Q8HR RICO Administration Temazepam 15 mg 06/21/17 13:50 06/22/17 21:06 Restoril PO 15 mg QPM PRN Administration Insomnia - Lab Result Fish Bone Diagrams: 06/25/17 05:06 06/25/17 05:06 - Additional Planning My Orders: My Active Orders 06/25/17 09:13 Acapella (Flutter Valve Device [RC] TID 06/25/17 09:14 Arterial Blood Gases - RT [RC] .ONCE 06/25/17 09:16 CPT - Chest Physical Therapy [RC] .tid 06/25/17 14:00 FUROSEMIDE INJ 20mg VIAL [LASIX INJ 20mg VIAL] 20 mg IVP BIDDIURETIC 06/26/17 00:30 VANCOMYCIN RANDOM [CHEM] Timed 06/26/17 08:00 Chest 2 View PA/LAT [XR] Routine Subjective - Subjective Patient Reports: Feeling Better Nursing Reports: Other (Small breaths, no pleuritic pain) Objective Vital Signs: Vital Signs - 24 hr 06/24/17 06/24/17 06/24/17 18:53 19:57 21:52 Temperature 37.1 C 37.7 C H Heart Rate Heart Rate [ Brachial] Heart Rate [ 118 H Right] Respiratory 22 Rate Blood Pressure 130/79 Blood Pressure [Left Brachial artery] Blood Pressure 137/87 H [Right Brachial artery] O2 Saturation 95 06/25/17 06/25/17 06/25/17 00:42 00:46 01:24 Temperature 36.7 C 36.7 C Heart Rate Heart Rate [ 114 H 116 H Brachial] Heart Rate [ 116 H Right] Respiratory 19 18 19 Rate Blood Pressure Blood Pressure [Left Brachial artery] Blood Pressure 120/81 H 116/78 107/70 [Right Brachial artery] O2 Saturation 4 L 92 92 06/25/17 06/25/17 06/25/17 01:27 05:42 06:52 Temperature 36.4 C L Heart Rate Heart Rate [ 98 118 H Brachial] Heart Rate [ 99 Right] Respiratory 19 18 Rate Blood Pressure Blood Pressure 118/75 131/80 H [Left Brachial artery] Blood Pressure 119/77 [Right Brachial artery] O2 Saturation 94 100 94 06/25/17 06/25/17 06/25/17 07:04 07:09 07:38 Temperature 37.0 C Heart Rate Heart Rate [ 104 H 90 Brachial] Heart Rate [ 104 H Right] Respiratory 20 Rate Blood Pressure Blood Pressure 112/76 112/62 117/80 [Left Brachial artery] Blood Pressure [Right Brachial artery] O2 Saturation 96 06/25/17 06/25/17 06/25/17 09:08 10:35 11:15 Temperature 36.9 C Heart Rate 94 Heart Rate [ 76 95 Brachial] Heart Rate [ Right] Respiratory 28 H 20 24 Rate Blood Pressure Blood Pressure [Left Brachial artery] Blood Pressure 125/75 122/62 [Right Brachial artery] O2 Saturation 98 91 L 06/25/17 06/25/17 14:56 15:37 Temperature 36.1 C L Heart Rate Heart Rate [ 94 Brachial] Heart Rate [ Right] Respiratory 20 Rate Blood Pressure Blood Pressure 129/79 [Left Brachial artery] Blood Pressure 125/77 [Right Brachial artery] O2 Saturation 96 Oxygen O2 Source Nasal cannula I&O (Last 24 Hrs): Intake and Output Totals x24h 06/23/17 06/24/17 06/25/17 23:59 23:59 23:59 Intake Total 3019.583 3968.333 4007.917 Output Total 400 250 475 Balance 2619.583 3718.333 3532.917 General: Other (Lethargic intermittently, tghen O2 sat drops to 80's) HEENT: Mucous membr. moist/pink Neck: Supple Cardiovascular: Regular rate Respiratory: Other (Diminished diffusely) Abdomen: Soft Extremities: No edema - Results Results: Laboratory Results WBC 13.0 x10^3/uL (4.8-10.8) H 06/25/17 05:06 RBC 3.26 10^6/uL (4.70-6.10) L 06/25/17 05:06 Hgb 7.8 g/dL (14.0-18.0) L 06/25/17 05:06 Hct 26.0 % (42.0-52.0) L 06/25/17 05:06 MCV 79.8 fL (80.0-94.0) L 06/25/17 05:06 MCH 24.0 pg (27.0-31.0) L 06/25/17 05:06 MCHC 30.1 g/dL (32.0-36.0) L 06/25/17 05:06 RDW 18.4 % (12.0-15.0) H 06/25/17 05:06 Plt Count 257 10^3/uL (130-450) 06/25/17 05:06 MPV 8.4 fL (7.4-11.4) 06/25/17 05:06 Neut # 9.8 10^3/uL (1.5-6.6) H 06/25/17 05:06 Lymph # 2.3 10^3/uL (1.5-3.5) 06/25/17 05:06 [place] # 0.8 10^3/uL (0.0-1.0) 06/25/17 05:06 Eos # 0.0 10^3/uL (0.0-0.7) 06/25/17 05:06 Baso # 0.0 10^3/uL (0.0-0.1) 06/25/17 05:06 Absolute Nucleated RBC 0.01 x10^3/uL 06/25/17 05:06 Nucleated RBC % 0.1 /100WBC 06/25/17 05:06 PT 26.3 secs (9.9-12.6) H 06/25/17 05:06 INR 2.4 (0.8-1.2) H 06/25/17 05:06 Bld Gas Analysis Time 0832 06/23/17 08:32 Sample Site RIGHT RADIAL 06/23/17 08:32 ABG pH 7.41 (7.35-7.45) 06/23/17 08:32 ABG pCO2 40 mmHg (34-45) 06/23/17 08:32 ABG pO2 77 mmHg (80-100) L 06/23/17 08:32 ABG HCO3 24.9 mmol/L (22.0-26.0) 06/23/17 08:32 ABG Total CO2 26.1 MMOL/L (21.0-29.0) 06/23/17 08:32 ABG O2 Saturation 95 % (94-98) 06/23/17 08:32 ABG Base Excess 0.3 mmol/L (-2.0-3.0) 06/23/17 08:32 Fidel Test POSITIVE 06/23/17 08:32 VBG pH 7.381 (7.31-7.41) 06/25/17 05:06 Ionized Calcium 1.07 mmol/L (1.15-1.33) L 06/25/17 05:06 O2 Liters/Min 2.50 LPM 06/23/17 08:32 Sodium 140 mmol/L (135-145) 06/25/17 05:06 Potassium 3.6 mmol/L (3.5-5.0) 06/25/17 05:06 Chloride 109 mmol/L (101-111) 06/25/17 05:06 Carbon Dioxide 23 mmol/L (21-32) 06/25/17 05:06 Anion Gap 8.0 (6-13) 06/25/17 05:06 BUN 7 mg/dL (6-20) 06/25/17 05:06 Creatinine 0.6 mg/dL (0.6-1.2) 06/25/17 05:06 Estimated GFR (MDRD) 144 (>89) 06/25/17 05:06 Glucose 99 mg/dL (70-100) 06/25/17 05:06 POC Whole Bld Glucose 98 mg/dL (70 - 100) 06/25/17 16:24 Glycated Hemoglobin 8.8 % (4.6-6.2) H 06/21/17 11:55 Estim Average Glucose 206 (70-100) H 06/21/17 11:55 Lactic Acid 2.0 mmol/L (0.5-2.2) 06/21/17 11:50 Calcium 7.6 mg/dL (8.5-10.3) L 06/25/17 05:06 Ionized Calcium YES 06/25/17 05:06 Phosphorus 1.8 mg/dL (2.5-4.6) L 06/25/17 05:06 Magnesium 2.1 mg/dL (1.7-2.8) 06/25/17 05:06 Iron 7 ug/dL (45-182) L 06/24/17 05:10 TIBC 224 ug/dL (250-450) L 06/24/17 05:10 % Saturation 3 % (20-50) L 06/24/17 05:10 Transferrin 160 mg/dL (180-329) L 06/24/17 05:10 Total Bilirubin 1.0 mg/dL (0.2-1.0) 06/25/17 05:06 Direct Bilirubin 0.3 mg/dL (0.1-0.5) 06/23/17 05:20 AST 123 IU/L (10-42) H 06/25/17 05:06 ALT 74 IU/L (10-60) H 06/25/17 05:06 Alkaline Phosphatase 289 IU/L (42-121) H 06/25/17 05:06 Total Protein 6.7 g/dL (6.7-8.2) 06/25/17 05:06 Albumin 2.0 g/dL (3.2-5.5) L 06/25/17 05:06 Globulin 4.7 g/dL (2.1-4.2) H 06/25/17 05:06 Albumin/Globulin Ratio 0.4 (1.0-2.2) L 06/25/17 05:06 Lipase 28 U/L (22-51) 06/21/17 11:50 Vitamin B12 462 pg/mL (180-914) 06/23/17 05:20 Folate 38.00 ng/mL (5.90 - >24.8) 06/23/17 05:20 Urine Color DARK YELLOW 06/21/17 13:05 Urine Clarity CLEAR (CLEAR) 06/21/17 13:05 Urine pH 8.0 PH (5.0-7.5) H 06/21/17 13:05 Ur Specific [place] 1.020 (1.002-1.030) 06/21/17 13:05 Urine Protein 100 mg/dL (NEGATIVE) H 06/21/17 13:05 Urine Glucose (UA) NEGATIVE mg/dL (NEGATIVE) 06/21/17 13:05 Urine Ketones NEGATIVE mg/dL (NEGATIVE) 06/21/17 13:05 Urine Occult Blood NEGATIVE (NEGATIVE) 06/21/17 13:05 Urine Nitrite NEGATIVE (NEGATIVE) 06/21/17 13:05 Urine Bilirubin NEGATIVE (NEGATIVE) 06/21/17 13:05 Urine Urobilinogen 4 E.U./dL (NORMAL) H 06/21/17 13:05 Ur Leukocyte Esterase NEGATIVE (NEGATIVE) 06/21/17 13:05 Urine RBC 0-5 /HPF (0-5) 06/21/17 13:05 Urine WBC 4-5 /HPF (0-3) 06/21/17 13:05 Ur Squamous Epith Cells RARE Squamous (<= Few) 06/21/17 13:05 Urine Bacteria Rare /HPF (None Seen) 06/21/17 13:05 Ur Microscopic Review INDICATED 06/21/17 13:05 Urine Culture Comments NOT INDICATED 06/21/17 13:05 Last Dose Date 06/23/17 06/25/17 11:40 Last Dose Time 1200 06/25/17 11:40 Vancomycin Trough 32.7 ug/mL (5.0-15.0) H* 06/25/17 11:40 Digoxin 0.8 ng/mL 06/21/17 11:50 Serum Ketones NEGATIVE (NEGATIVE) 06/21/17 11:50 Influenza A (Rapid) POSITIVE (Negative) H 06/23/17 10:45 Influenza B (Rapid) Negative (Negative) 06/23/17 10:45 Influenza Types A,B Ag + H 06/23/17 10:45 Blood Type A POSITIVE 06/22/17 08:20 Blood Type Recheck A POSITIVE 06/22/17 05:05
[2017-06-25] MEDS: ACETAMINOPHEN 325 MG TABLET PO PRN (20:45)
[2017-06-26] MEDS: VANCOMYCIN INJ 1 GM in SODIUM CHLORIDE 0.9% 250 ML IV SCH ×2 (00:49→13:12)
[2017-06-26 01:08] LABS: VANCOMYCIN,RANDOM 13.8 ug/mL
[2017-06-26] MEDS: SODIUM CHLORIDE FLUSH 0.9% 10 ML SYRINGE IVP SCH ×3 (05:51→16:59)
[2017-06-26] MEDS: FUROSEMIDE 20 MG/2 ML VIAL IVP SCH ×2 (05:52→13:11)
[2017-06-26 06:30] LABS: BASOPHILS % (AUTO) 0.1 %; HGB - HEMOGLOBIN 12.2 g/dL (14.0-18.0); LYMPHOCYTES # (AUTO) 0.2 10^3/uL (1.5-3.5); LYMPHOCYTES % (AUTO) 2.3 %; MEAN CORPUSCULAR HEMOGLOBIN 27.9 pg (27.0-31.0); MEAN CORPUSCULAR HGB CONC 32.7 g/dL (32.0-36.0); MEAN CORPUSCULAR VOLUME 85.2 fL (80.0-94.0); MEAN PLATELET VOLUME 8.1 fL (7.4-11.4); MONOCYTES # (AUTO) 0.2 10^3/uL (0.0-1.0); MONOCYTES % (AUTO) 2.1 %; NEUTROPHILS # (AUTO) 9.9 10^3/uL (1.5-6.6); NEUTROPHILS % (AUTO) 95.5 %; PLT - PLATELET COUNT 299 10^3/uL (130-450); RED BLOOD COUNT 4.39 10^6/uL (4.70-6.10); RED CELL DISTRIBUTION WIDTH 13.5 % (12.0-15.0); WHITE BLOOD COUNT 10.4 x10^3/uL (4.8-10.8)
[2017-06-26 06:41] LABS: ALBUMIN 2.5 g/dL (3.2-5.5); ALBUMIN/GLOBULIN RATIO 0.8 (1.0-2.2); ALKALINE PHOSPHATASE 53 IU/L (42-121); ALT ALANINE AMINOTRANSFERASE < 10 IU/L (10-60); AST ASPARTATE AMINOTRANSFERASE 12 IU/L (10-42); BILIRUBIN,TOTAL 0.4 mg/dL (0.2-1.0); BUN - BLOOD UREA NITROGEN 16 mg/dL (6-20); CALCIUM 7.9 mg/dL (8.5-10.3); CARBON DIOXIDE - CO2 30 mmol/L (21-32); CHLORIDE 103 mmol/L (101-111); CREATININE 0.7 mg/dL (0.6-1.2); GFR - MDRD 120 (>89); GLUCOSE 138 mg/dL (70-100); MAGNESIUM 1.7 mg/dL (1.7-2.8); PHOSPHORUS 3.1 mg/dL (2.5-4.6); SODIUM 138 mmol/L (135-145); TOTAL PROTEIN 5.8 g/dL (6.7-8.2)
[2017-06-26 06:45] LABS: VBG PH 7.338 (7.31-7.41)
[2017-06-26 06:51] LABS: INR 1.2 (0.8-1.2); PT - PROTHROMBIN TIME 13.8 secs (9.9-12.6)
[2017-06-26] MEDS: CEFEPIME 2 GM in SODIUM CHLORIDE 0.9% MINIBAG 100 ML IV SCH ×2 (08:51→15:57)
[2017-06-26] MEDS: FERROUS SULFATE 325 MG TABLET PO SCH (08:52)
[2017-06-26] MEDS: ASPIRIN EC 81 MG TABLET PO SCH (08:52)
[2017-06-26] MEDS: FAMOTIDINE 20 MG TABLET PO SCH (08:52)
[2017-06-26] MEDS: OSELTAMIVIR 75 MG CAPSULE PO SCH ×2 (08:52→20:34)
[2017-06-26] MEDS: POLYETHYLENE GLYCOL 3350 17 GM PACKET PO SCH (08:52)
[2017-06-26] MEDS: METOPROLOL SUCCINATE 50 MG TABLET PO SCH (08:52)
[2017-06-26] MEDS: INSULIN ASPART 300 UNIT/3 ML PEN SUBQ SCH ×4 (08:52→20:34)
[2017-06-26] MEDS: BENZONATATE 100 MG CAPSULE PO PRN (13:11)
[2017-06-26] MEDS: PROCHLORPERAZINE 10 MG/2 ML VIAL IVP PRN (13:11)
[2017-06-26] MEDS: guaiFENesin/DEXTROMETHORPHAN 10 ML UDC PO PRN (13:11)
[2017-06-26] MEDS: SODIUM CHLORIDE FLUSH 0.9% 10 ML SYRINGE IVP PRN (13:12)
--- NOTE | 2017-06-26 16:28 | PROVIDER PROGRESS NOTE ---
Assessment/Plan - Problem List (1) HCAP (healthcare-associated pneumonia) Assessment/Plan: WBC improving. All cx neg so far Continue broad spectrum antibiotics and [place] No thoracentesis planeed. Will continue to diurse the pleural effusion (2) Elevated INR Assessment/Plan: INR was elevated from antibiotics and elevated LFTs INR is now subtherapeutic rom yesterday's therapeutic value Will resume Coumadin and continue to follow INR (3) Diabetes Qualifiers: Diabetes mellitus type: type 2 Assessment/Plan: Gopd glu values Continue diet and meds (4) Elevated LFTs Assessment/Plan: Echo showed RV dilated and Pulm HTN present. This was likely from longstanding R to L shunt of ASD that was repaired only 5 years ago This suggests liver congestion could have been present at admission, and pulm HTN worsened by HCAP LFTs now normalized (5) Atrial fibrillation Qualifiers: Atrial fibrillation type: chronic Qualified Code(s): I48.2 - Chronic atrial fibrillation Assessment/Plan: Telemetryy shows 100% aflutter with a controlled ventricular response Continue meds for HR and restart Coumadin vs NOAC (if Pt can afford it) (6) Anemia Assessment/Plan: Significantly improved since diuretic started Will stop Iron Sulfate replacement - Current Meds Current Meds: Current Medications Generic Name Dose Route Start Last Admin Trade Name Freq PRN Reason Stop Dose Admin Acetaminophen 650 mg 06/21/17 13:57 06/25/17 20:45 Tylenol PO 650 mg Q6H PRN Administration FEVER > 100.5 F Acetaminophen/Hydrocodone Bitart 1 tab 06/21/17 13:50 06/26/17 09:55 [place] 5/325 PO 1 tab Q4HR PRN Administration Pain 5 to 7 Aspirin 81 mg 06/22/17 09:00 06/26/17 08:52 Ecotrin PO 81 mg DAILY RICO Administration Benzonatate 100 mg 06/23/17 09:17 06/26/17 13:11 Tessalon PO 100 mg TID PRN Administration Cough Calcium Carbonate/Glycine 500 mg 06/22/17 00:10 06/22/17 00:20 Tums PO 500 mg QID PRN Administration INDIGESTION Famotidine 20 mg 06/22/17 09:00 06/26/17 08:52 Pepcid PO 20 mg DAILY RICO Administration Ferrous Sulfate 325 mg 06/24/17 07:00 06/26/17 08:52 Feosol PO 325 mg BIDWM R[place] Administration Furosemide 20 mg 06/25/17 14:00 06/26/17 13:11 Lasix Inj 20mg Vial IVP 20 mg BIDDIURETIC [place] Administration Guaifenesin 10 ml 06/22/17 13:25 06/26/17 13:11 Robitussin Dm PO 10 ml Q6HR PRN Administration Cough Cefepime HCl 2 gm/ Sodium 100 mls @ 200 mls/hr 06/24/17 16:00 06/26/17 15:57 Chloride IV 200 mls/hr Q8H RICO Administration Vancomycin HCl 1 gm/ Sodium 250 mls @ 166.667 mls/hr 06/26/17 01:00 06/26/17 15:49 Chloride IV Infused Q12H RICO Infusion Insulin Aspart 1 - 5 unit 06/21/17 17:00 06/26/17 11:36 Novolog SUBQ Not Given 0800,1200,1700,2100 [facility] Protocol Levalbuterol HCl 1.25 mg 06/23/17 11:32 06/25/17 10:35 Xopenex INH 1.25 mg Q4H PRN Administration Wheezing Metoprolol Succinate 75 mg 06/25/17 09:00 06/26/17 08:52 Toprol Xl PO 75 mg DAILY [place] Administration Metoprolol Tartrate 5 mg 06/24/17 00:39 06/24/17 18:53 Lopressor Inj IVP 5 mg Q6H PRN Administration Tachycardia Oseltamivir Phosphate 75 mg 06/23/17 12:00 06/26/17 08:52 Tamiflu PO 06/27/17 21:01 75 mg BID [place]ICO Administration Polyethylene Glycol 17 gm 06/22/17 09:00 06/26/17 08:52 Miralax PO Not Given DAILY [facility] Prochlorperazine Edisylate 10 mg 06/21/17 13:50 06/26/17 13:11 Compazine Inj IVP 10 mg Q6HR PRN Administration Nausea / Vomiting Sodium Chloride 10 ml 06/21/17 13:50 06/26/17 13:12 Normal Saline Flush 0.9% IVP 10 ml PRN PRN Administration NEEDED PER PROVIDER ORDERS Sodium Chloride 10 ml 06/21/17 22:00 01/02/18 13:13 Normal Saline Flush 0.9% IVP 10 ml Q8HR RICO Administration Temazepam 15 mg 06/21/17 13:50 06/22/17 21:06 Restoril PO 15 mg QPM PRN Administration Insomnia - Lab Result Fish Bone Diagrams: 06/26/17 06:18 06/26/17 06:18 - Additional Planning My Orders: My Active Orders 06/26/17 12:42 EKG - Electrocardiogram [RC] .ONCE 06/26/17 12:43 Daily Weight [RC] 0600 Subjective - Subjective Patient Reports: Feeling Better, Resting Comfortably, Other (Cough has significantly decreased) Nursing Reports: No Complaints Objective Vital Signs: Vital Signs - 24 hr 06/25/17 06/25/17 06/26/17 19:30 20:17 00:42 Temperature 37.0 C 36.5 C Heart Rate 92 Heart Rate [ 92 90 Brachial] Respiratory 20 20 18 Rate Blood Pressure 107/70 [Left Brachial artery] Blood Pressure 118/79 [Right Brachial artery] O2 Saturation 95 97 06/26/17 06/26/17 06/26/17 05:00 07:33 13:00 Temperature 36.6 C 36.6 C 36.4 C L Heart Rate Heart Rate [ 89 93 110 H Brachial] Respiratory 18 18 20 Rate Blood Pressure 121/71 [Left Brachial artery] Blood Pressure 115/72 115/68 [Right Brachial artery] O2 Saturation 94 97 93 06/26/17 16:11 Temperature 36.9 C Heart Rate Heart Rate [ 101 H Brachial] Respiratory 20 Rate Blood Pressure 105/61 [Left Brachial artery] Blood Pressure [Right Brachial artery] O2 Saturation 95 Oxygen O2 Source Nasal cannula I&O (Last 24 Hrs): Intake and Output Totals x24h 06/24/17 06/25/17 06/26/17 23:59 23:59 23:59 Intake Total 3968.333 4507.917 1745 Output Total 250 475 1 Balance 3718.333 4032.917 1744 General: Alert, Oriented x3 HEENT: Mucous membr. moist/pink Neck: Supple Neuro: Non Focal, CN 2-12 Grossly Intact Cardiovascular: Regular rate, No murmurs Respiratory: Other (Diminished) Abdomen: Soft Extremities: Other (1+ edema) - Results Results: Laboratory Results WBC 10.4 x10^3/uL (4.8-10.8) 06/26/17 06:18 RBC 4.39 10^6/uL (4.70-6.10) L 06/26/17 06:18 Hgb 12.2 g/dL (14.0-18.0) L 06/26/17 06:18 Hct 37.4 % (42.0-52.0) L 06/26/17 06:18 MCV 85.2 fL (80.0-94.0) 06/26/17 06:18 MCH 27.9 pg (27.0-31.0) 06/26/17 06:18 MCHC 32.7 g/dL (32.0-36.0) 06/26/17:18 RDW 13.5 % (12.0-15.0) 06/26/17:18 Plt Count 299 10^3/uL (130-450) 06/26/17 06:18 MPV 8.1 fL (7.4-11.4) 06/26/17 06:18 Neut # 9.9 10^3/uL (1.5-6.6) H 06/26/17 06:18 Lymph # 0.2 10^3/uL (1.5-3.5) L 06/26/17 06:18 [place] # 0.2 10^3/uL (0.0-1.0) 06/26/17 06:18 Eos # 0.0 10^3/uL (0.0-0.7) 06/26/17 06:18 Baso # 0.0 10^3/uL (0.0-0.1) 06/26/17:18 Absolute Nucleated RBC 0.00 x10^3/uL 06/26/17 06:18 Nucleated RBC % 0.0 /100WBC 06/26/17 06:18 PT 13.8 secs (9.9-12.6) H 06/26/17 06:18 INR 1.2 (0.8-1.2) 06/26/17 06:18 Bld Gas Analysis Time 0832 06/23/17 08:32 Sample Site RIGHT RADIAL 06/23/17 08:32 ABG pH 7.41 (7.35-7.45) 06/23/17 08:32 ABG pCO2 40 mmHg (34-45) 06/23/17 08:32 ABG pO2 77 mmHg (80-100) L 06/23/17 08:32 ABG HCO3 24.9 mmol/L (22.0-26.0) 06/23/17 08:32 ABG Total CO2 26.1 MMOL/L (21.0-29.0) 06/23/17 08:32 ABG O2 Saturation 95 % (94-98) 06/23/17 08:32 ABG Base Excess 0.3 mmol/L (-2.0-3.0) 06/23/17 08:32 Fidel Test POSITIVE 06/23/17 08:32 VBG pH 7.338 (7.31-7.41) 06/26/17 06:18 Ionized Calcium 1.09 mmol/L (1.15-1.33) L 06/26/17 06:18 O2 Liters/Min 2.50 LPM 06/23/17 08:32 Sodium 138 mmol/L (135-145) 06/26/17 06:18 Potassium 4.3 mmol/L (3.5-5.0) 06/26/17 06:18 Chloride 103 mmol/L (101-111) 06/26/17 06:18 Carbon Dioxide 30 mmol/L (21-32) 06/26/17 06:18 Anion Gap 5.0 (6-13) L 06/26/17 06:18 BUN 16 mg/dL (6-20) 06/26/17 06:18 Creatinine 0.7 mg/dL (0.6-1.2) 06/26/17 06:18 Estimated GFR (MDRD) 120 (>89) 06/26/17 06:18 Glucose 138 mg/dL (70-100) H 06/26/17 06:18 POC Whole Bld Glucose 106 mg/dL (70 - 100) H 06/26/17 11:27 Glycated Hemoglobin 8.8 % (4.6-6.2) H 06/21/17 11:55 Estim Average Glucose 206 (70-100) H 06/21/17 11:55 Lactic Acid 2.0 mmol/L (0.5-2.2) 06/21/17 11:50 Calcium 7.9 mg/dL (8.5-10.3) L 06/26/17 06:18 Ionized Calcium YES 06/26/17 06:18 Phosphorus 3.1 mg/dL (2.5-4.6) 06/26/17 06:18 Magnesium 1.7 mg/dL (1.7-2.8) 06/26/17 06:18 Iron 7 ug/dL (45-182) L 06/24/17 05:10 TIBC 224 ug/dL (250-450) L 06/24/17 05:10 % Saturation 3 % (20-50) L 06/24/17 05:10 Transferrin 160 mg/dL (180-329) L 06/24/17 05:10 Total Bilirubin 0.4 mg/dL (0.2-1.0) 06/26/17 06:18 Direct Bilirubin 0.3 mg/dL (0.1-0.5) 06/23/17 05:20 AST 12 IU/L (10-42) 06/26/17 06:18 ALT < 10 IU/L (10-60) L 06/26/17 06:18 Alkaline Phosphatase 53 IU/L (42-121) 06/26/17 06:18 Total Protein 5.8 g/dL (6.7-8.2) L 06/26/17 06:18 Albumin 2.5 g/dL (3.2-5.5) L 06/26/17 06:18 Globulin 3.3 g/dL (2.1-4.2) 06/26/17 06:18 Albumin/Globulin Ratio 0.8 (1.0-2.2) L 06/26/17 06:18 Lipase 28 U/L (22-51) 06/21/17 11:50 Vitamin B12 462 pg/mL (180-914) 06/23/17 05:20 Folate 38.00 ng/mL (5.90 - >24.8) 06/23/17 05:20 Urine Color DARK YELLOW 06/21/17 13:05 Urine Clarity CLEAR (CLEAR) 06/21/17 13:05 Urine pH 8.0 PH (5.0-7.5) H 06/21/17 13:05 Ur Specific [place] 1.020 (1.002-1.030) 06/21/17 13:05 Urine Protein 100 mg/dL (NEGATIVE) H 06/21/17 13:05 Urine Glucose (UA) NEGATIVE mg/dL (NEGATIVE) 06/21/17 13:05 Urine Ketones NEGATIVE mg/dL (NEGATIVE) 06/21/17 13:05 Urine Occult Blood NEGATIVE (NEGATIVE) 06/21/17 13:05 Urine Nitrite NEGATIVE (NEGATIVE) 06/21/17 13:05 Urine Bilirubin NEGATIVE (NEGATIVE) 06/21/17 13:05 Urine Urobilinogen 4 E.U./dL (NORMAL) H 06/21/17 13:05 Ur Leukocyte Esterase NEGATIVE (NEGATIVE) 06/21/17 13:05 Urine RBC 0-5 /HPF (0-5) 06/21/17 13:05 Urine WBC 4-5 /HPF (0-3) 06/21/17 13:05 Ur Squamous Epith Cells RARE Squamous (<= Few) 06/21/17 13:05 Urine Bacteria Rare /HPF (None Seen) 06/21/17 13:05 Ur Microscopic Review INDICATED 06/21/17 13:05 Urine Culture Comments NOT INDICATED 06/21/17 13:05 Last Dose Date Not Reportable 06/26/17 00:35 Last Dose Time Not Reportable 06/26/17 00:35 Vancomycin Trough 32.7 ug/mL (5.0-15.0) H* 06/25/17 11:40 Random Vancomycin 13.8 ug/mL 06/26/17 00:35 Digoxin 0.8 ng/mL 06/21/17 11:50 Serum Ketones NEGATIVE (NEGATIVE) 06/21/17 11:50 Influenza A (Rapid) POSITIVE (Negative) H 06/23/17 10:45 Influenza B (Rapid) Negative (Negative) 06/23/17 10:45 Influenza Types A,B Ag + H 06/23/17 10:45 Blood Type A POSITIVE 06/22/17 08:20 Blood Type Recheck A POSITIVE 06/22/17 05:05
[2017-06-26] MEDS ORDERED: SODIUM CHLORIDE INHALATION 3 ML NEB INH PRN (23:25)
[2017-06-27] MEDS: CEFEPIME 2 GM in SODIUM CHLORIDE 0.9% MINIBAG 100 ML IV SCH ×2 (00:14→08:31)
[2017-06-27] MEDS: VANCOMYCIN INJ 1 GM in SODIUM CHLORIDE 0.9% 250 ML IV SCH (01:43)
[2017-06-27] MEDS: guaiFENesin/DEXTROMETHORPHAN 10 ML UDC PO PRN (02:31)
[2017-06-27] MEDS: CALCIUM CARBONATE CHEW 500 MG TABLET PO PRN (03:19)
[2017-06-27] MEDS: BENZONATATE 100 MG CAPSULE PO PRN (03:19)
[2017-06-27] MEDS: SODIUM CHLORIDE FLUSH 0.9% 10 ML SYRINGE IVP SCH (07:30)
[2017-06-27] MEDS: FUROSEMIDE 20 MG/2 ML VIAL IVP SCH (07:31)
[2017-06-27] MEDS: INSULIN ASPART 300 UNIT/3 ML PEN SUBQ SCH (07:39)
[2017-06-27] MEDS: FAMOTIDINE 20 MG TABLET PO SCH (08:46)
[2017-06-27] MEDS: ASPIRIN EC 81 MG TABLET PO SCH (08:46)
[2017-06-27] MEDS: POLYETHYLENE GLYCOL 3350 17 GM PACKET PO SCH (10:20)
[2017-06-27] MEDS: OSELTAMIVIR 75 MG CAPSULE PO SCH (10:20)
[2017-06-27] MEDS: METOPROLOL SUCCINATE 50 MG TABLET PO SCH (10:21)
[2017-06-27 12:14] VITALS: BP 115/74
--- NOTE | 2017-06-27 12:19 | Discharge Plan ---
Discharge Plan Disposition: Home, Self Care Condition: Stable Prescriptions: Ciprofloxacin/Ciprofloxa HCl [Ciprofloxacin ER 500 mg Tablet] 500 mg PO BID #20 tbmp.24hr Levalbuterol [Xopenex] 1.25 mg INH Q4H PRN #2 neb PRN Reason: Wheezing Oseltamivir [Tamiflu] 75 mg PO BID #10 capsule Diet: Diabetic Activity Restrictions: Activity as Tolerated Shower Restrictions: No Driving Restrictions: No Instruction Topics: Flu, Pneumonia HC Associated Additional Instructions or Follow Up instructions: Resume all your medications as taken before hospitalization Take the new antibiotic prescription and Flu medicine prescription until all tablets are done Use the new inhaler prescription as needed While you are on [facility], return to the ER if you feel worse See your PCP for follow-up of pneumonia and Influenza, 1-2 weeks after you return home to [place] No Smoking: If you smoke, Please STOP! Call for help. Follow-up with: Provider,Other [Primary Care Provider] -
--- NOTE | 2017-07-17 05:20 | DISCHARGE SUMMARY ---
DATE OF SERVICE: Physician: Sharona Jose MD DATE OF ADMISSION: 06/21/2017 DATE OF DISCHARGE: 06/27/2017 DATE OF ADMISSION: 06/21/2017 DATE OF DISCHARGE: 06/27/2017 HISTORY OF PRESENT ILLNESS: This is a 46-year-old white male who lives in [place] and is visiting [facility]. He has a history of atrial septal defect repair as an adult, history of atrial fibrillation, for which he underwent 2 ablations, which were not successful, and he is now in chronic atrial fibrillation/flutter and takes Coumadin. He has a history of diabetes and a recent admission in his home town for pneumonia, for which he received possibly only partial treatment and then after he arrived here, he re-developed a cough, fever and chills, weakness and presented to the emergency room where x-rays showed pneumonia as well as many lab abnormalities and he was admitted for management. HOSPITAL COURSE AND DISCHARGE DIAGNOSES: 1. Healthcare-acquired pneumonia with positive influenza. Patient had sputum and blood culture sent, but had no positive cultures throughout the hospitalization. He was on empiric antibiotics for a healthcare-acquired pneumonia while here. He also underwent testing for influenza, which was positive for type A, and he was started on Tamiflu and discharged to complete a course. The patient had significant dyspnea, cough, hoarseness, respiratory distress and required nebulizers and incentive spirometry during his course as well as cough suppressant. A chest x-ray showed pleural effusions as well and he required diuresis for management, there was not enough fluid to undergo thoracentesis. 2. Elevated INR. At admission, his INR was excessive at 9.2. He required vitamin K for management of this and his Coumadin was on hold. INR eventually decreased to a therapeutic range of 2.2 and 2.4, and when he was subtherapeutic at 1.2, the Coumadin dose was restarted with bridging. He was discharged on his usual dose of Coumadin. 3. Diabetes mellitus. The patient was on a diabetic diet and sliding scale insulin and was advised continued diabetic meds and management as before hospitalization, at the time of discharge. 4. Elevated liver tests. At presentation, he had AST of 102, ALT of 91, which increased to as high as AST of 123 and ALT of 91 and then eventually improved to a normal range after he was started on diuretics. An echocardiogram was done and this showed evidence of right heart enlargement and failure as well as pulmonary hypertension, which was felt to be the reason for the elevated liver tests (passive congestion). 5. Atrial fibrillation, chronic. The patient had adequate rate control throughout this admission with his medications and the anticoagulation was managed as above. 6. Anemia. Patient presented with an initial hemoglobin of 9.3 and dropped as low as 7.8 after 4 days of admission. He required iron supplements and diuresis, which eventually brought his hemoglobin level to 12.2 at the time of discharge. Surgical consult was called for possible endoscopy, but there were no heme-positive stools and he did not undergo esophagogastroduodenoscopy or colonoscopy. Anemia was felt to be hemodilutional from CHF. 7. Muscular dystrophy. Later in this hospitalization, the patient described a chronic diagnosis of muscular dystrophy since childhood. 8. Status post atrial septal defect repair. The patient's Echocardiogram showed no patency at the atrial septum, consistent with a good ASD repair; however, there was probably right heart failure prior to surgery, which left him with right ventricular dilation, RV failure plus pulmonary hypertension seen at the time of this echocardiogram. The pulmonary arterial pressure was calculated at 69 mmHg. LABS AND IMAGING: Reviewed and as above. ALLERGIES: PENICILLIN. MEDICATIONS AT THE TIME OF DISCHARGE: 1. Baby aspirin. 2. Bisoprolol 10 mg daily. 3. Digoxin 250 mcg daily. 4. Saxagliptin/metformin 2.10/999 mg daily. 5. Warfarin 2 mg daily. 6. Tamiflu 75 mg p.o. b.i.d. for 5 more days. 7. Xopenex inhaler p.r.n. wheezing. 8. Ciprofloxacin ER 500 mg p.o. b.i.d. for 10 more days. CONDITION AT DISCHARGE: Stable. PHYSICAL EXAMINATION AT DISCHARGE: VITAL SIGNS: Blood pressure 115/74, pulse of 117, in atrial fibrillation, afebrile, room air saturation 95%. HEENT: Unremarkable except he has wide set eyes. Oral mucosa is moist. NECK: No JVD in a vertical position. No carotid bruits. No thyromegaly or lymphadenopathy. CHEST: Right scattered base wheeze and diminished breath sounds at both bases. CARDIOVASCULAR: Heart sounds normal without audible murmur. There is no RV gallop or heave. ABDOMEN: Soft, positive bowel sounds. EXTREMITIES: Without clubbing, cyanosis or edema. NEUROLOGIC: Intact. FOLLOWUP: Since the patient lives in a different state, he was advised that he could come to this emergency room if needed or outpatient clinic was also offered while he is staying on [facility]. CODE STATUS: FULL CODE Total time completed for completion of this discharge: 45 minutes. TD: 07/17/2017 06:19 STEF
== END 2017-06-27 12:54 | disposition home or self-care (01) | DRG 194 ==
LOC: ED 11:23 → MS2 13:50
PROVIDERS: ADMIT Internal Medicine; ATTEND Internal Medicine
DX: J10.00 Influenza due to other identified influenza virus with unspecified type of pneumonia (principal); G71.0 Muscular dystrophy; R17 Unspecified jaundice; J90 Pleural effusion, not elsewhere classified; Y95 Nosocomial condition; I48.2 Chronic atrial fibrillation; I50.810 Right heart failure, unspecified; I27.20 Pulmonary hypertension, unspecified; R79.1 Abnormal coagulation profile; E11.9 Type 2 diabetes mellitus without complications; R74.0 Nonspecific elevation of levels of transaminase and lactic acid dehydrogenase [LDH]; D64.9 Anemia, unspecified; Z79.84 Long term (current) use of oral hypoglycemic drugs; Z79.82 Long term (current) use of aspirin; Z79.01 Long term (current) use of anticoagulants; Z79.899 Other long term (current) drug therapy; Z98.890 Other specified postprocedural states
CPT/HCPCS: 36415; 36600; 71010; 71020; 71260; 74177; 80048; 80053; 80076; 80162; 80202; 81001; 81003; 81599; 82009; 82270; 82330; 82607; 82746; 82803; 83036; 83540; 83605; 83690; 83735; 84100; 84466; 85025; 85610; 86900; 86901; 87040; 87070; 87086; 87205; 87275; 87276; 87801; 93005; 93306; 94640; 94664; 94761; 99284; 99285

== ENCOUNTER 2017-07-05 12:38 | Inpatient (IN) | payer MEDICARE ==
[2017-07-05] MEDS ORDERED: SODIUM CHLORIDE 0.9% 1,000 ML IV ONE ×2 (13:27→15:59)
[2017-07-05 13:51] LABS: BASOPHILS # (AUTO) 0.1 10^3/uL (0.0-0.1); BASOPHILS % (AUTO) 0.6 %; EOSINOPHILS # (AUTO) 0.1 10^3/uL (0.0-0.7); EOSINOPHILS % (AUTO) 0.6 %; HGB - HEMOGLOBIN 10.6 g/dL (14.0-18.0); LYMPHOCYTES # (AUTO) 2.2 10^3/uL (1.5-3.5); LYMPHOCYTES % (AUTO) 16.1 %; MEAN CORPUSCULAR HEMOGLOBIN 24.1 pg (27.0-31.0); MEAN CORPUSCULAR HGB CONC 30.8 g/dL (32.0-36.0); MEAN CORPUSCULAR VOLUME 78.3 fL (80.0-94.0); MEAN PLATELET VOLUME 7.7 fL (7.4-11.4); MONOCYTES # (AUTO) 0.8 10^3/uL (0.0-1.0); MONOCYTES % (AUTO) 5.5 %; NEUTROPHILS # (AUTO) 10.7 10^3/uL (1.5-6.6); NEUTROPHILS % (AUTO) 77.2 %; PLT - PLATELET COUNT 704 10^3/uL (130-450); RED BLOOD COUNT 4.39 10^6/uL (4.70-6.10); RED CELL DISTRIBUTION WIDTH 19.4 % (12.0-15.0); WHITE BLOOD COUNT 13.8 x10^3/uL (4.8-10.8)
[2017-07-05 13:57] LABS: INR 4.1 (0.8-1.2); PT - PROTHROMBIN TIME 43.7 secs (9.9-12.6)
[2017-07-05 14:03] LABS: ALBUMIN 2.8 g/dL (3.2-5.5); ALBUMIN/GLOBULIN RATIO 0.4 (1.0-2.2); BILIRUBIN,TOTAL 0.6 mg/dL (0.2-1.0); CALCIUM 9.3 mg/dL (8.5-10.3); CREATININE 0.8 mg/dL (0.6-1.2); TOTAL PROTEIN 10.1 g/dL (6.7-8.2)
--- NOTE | 2017-07-05 14:41 | ED Physician Documentation ---
History of Present Illness - Stated complaint Stated Complaint: DEHYDRATION - Chief complaint Chief Complaint: Abd Pain - History obtained from History obtained from: Patient, Family - History of Present Illness Timing: How many weeks ago (several) Pain level max: 0 Pain level now: 0 - Additonal information Additional information: Patient is a 46-year-old male who has a history of atrial septal defect with repair as an adult. He is visiting from [place] and was admitted to the hospital in [place] for pneumonia treated with 3 days of IV Levaquin and then sent home without oral antibiotics. He was then admitted here for several days placed on antibiotics and Tamiflu. He is almost done with his antibiotics now, but has had continued coughing and vomiting. He is concerned she is dehydrated. States he is still not feeling well. Review of Systems Constitutional: denies: Fever, Chills Ears: denies: Ear pain Nose: denies: Rhinorrhea / runny nose, Congestion Throat: denies: Sore throat Cardiac: denies: Chest pain / pressure Respiratory: reports: Dyspnea, Cough, Wheezing GI: denies: Abdominal Pain, Nausea, Vomiting, Diarrhea Skin: denies: Rash Musculoskeletal: denies: Neck pain, Back pain Neurologic: denies: Headache PD PAST MEDICAL HISTORY - Past Medical History Past Medical History: Yes Cardiovascular: Atrial fibrillation Respiratory: Pneumonia Neuro: None, Headache/migraine Endocrine/Autoimmune: Type 2 diabetes GI: None : None HEENT: None Psych: None Musculoskeletal: None, Other Derm: None Other Past Medical History: Slight case of MD per patient - Past Surgical History Past Surgical History: Yes Cardiovascular: Other - Present Medications Home Medications: Ambulatory Orders Medication Instructions Recorded Confirmed Aspirin [Adult Low Dose Aspirin EC] 81 mg PO DAILY 06/21/17 07/05/17 Bisoprolol Fumarate 10 mg PO DAILY 06/21/17 07/05/17 Digoxin 250 mg PO DAILY 06/21/17 07/05/17 Saxagliptin HCl/Metformin HCl 2.5 - 1,000 mg PO DAILY 06/21/17 07/05/17 [Kombiglyze Xr 2.5-1,000 mg Tab] Warfarin Sodium [Coumadin] 2 mg PO DAILY 06/21/17 07/05/17 Ciprofloxacin/Ciprofloxa HCl 500 mg PO BID #20 tbmp.24hr 06/27/17 07/05/17 [Ciprofloxacin ER 500 mg Tablet] Levalbuterol [Xopenex] 1.25 mg INH Q4H PRN #2 neb 06/27/17 07/05/17 Oseltamivir [Tamiflu] 75 mg PO BID #10 capsule 06/27/17 07/05/17 - Allergies Allergies/Adverse Reactions: Allergies Allergy/AdvReac Type Severity Reaction Status Date / Time Penicillins Allergy Intermediate Rash Verified 06/21/17 12:07 - Social History Does the pt smoke?: No Smoking Status: Never smoker Does the pt drink ETOH?: Yes Does the pt have substance abuse?: No - Immunizations Immunizations are current?: Yes - POLST Patient has POLST: No PD ED PE NORMAL - Vitals Vital signs reviewed: Yes - General General: Alert and oriented X 3, Other (pale, thin) - HEENT HEENT: PERRL, Ears normal, Moist mucous membranes, Pharynx benign - Neck Neck: Supple, no meningeal sign - Cardiac Cardiac: RRR, Strong equal pulses - Respiratory Respiratory: No respiratory distress, Clear bilaterally - Abdomen Abdomen: Soft, Non tender, Non distended - Derm Derm: Warm and dry - Neuro Neuro: Alert and oriented X 3 Results - Vitals Vitals: Vital Signs - 24 hr 07/05/17 07/05/17 07/05/17 12:47 14:06 16:04 Temperature 36.4 C L 36 C L Heart Rate 110 H 88 100 Respiratory 20 17 20 Rate Blood Pressure 86/61 L 96/68 94/69 O2 Saturation 92 94 100 Oxygen O2 Source Room air - Labs Labs: Laboratory Tests 07/05/17 07/05/17 07/05/17 13:43 13:43 13:43 WBC 13.8 H RBC 4.39 L Hgb 10.6 L Hct 34.4 L MCV 78.3 L MCH 24.1 L MCHC 30.8 L RDW 19.4 H Plt Count 704 H MPV 7.7 Neut # 10.7 H Lymph # 2.2 Mcclain # 0.8 Eos # 0.1 Baso # 0.1 Absolute Nucleated RBC 0.00 Nucleated RBC % 0.0 PT 43.7 H INR 4.1 H Sodium 135 Potassium 4.9 Chloride 98 L Carbon Dioxide 28 Anion Gap 9.0 BUN 10 Creatinine 0.8 Estimated GFR (MDRD) 103 Glucose 129 H Glycated Hemoglobin Estim Average Glucose Lactic Acid Calcium 9.3 Total Bilirubin 0.6 AST 29 ALT 25 Alkaline Phosphatase 346 H Total Protein 10.1 H Albumin 2.8 L Globulin 7.3 H Albumin/Globulin Ratio 0.4 L Lipase 30 07/05/17 07/05/17 13:43 15:34 WBC RBC Hgb Hct MCV MCH MCHC RDW Plt Count MPV Neut # Lymph # Mcclain # Eos # Baso # Absolute Nucleated RBC Nucleated RBC % PT INR Sodium Potassium Chloride Carbon Dioxide Anion Gap BUN Creatinine Estimated GFR (MDRD) Glucose Glycated Hemoglobin 8.0 H Estim Average Glucose 183 H Lactic Acid 2.3 H Calcium Total Bilirubin AST ALT Alkaline Phosphatase Total Protein Albumin Globulin Albumin/Globulin Ratio Lipase - Rads (name of study) cxr Radiology: Prelim report reviewed, EMP read contemporaneously, See rad report ( Stable mild right lower lobe and extensive left lower lobe infiltrates with likely left effusion) CT chest Radiology: Prelim report reviewed, EMP read contemporaneously, See rad report ( Multilobar pneumonia. Enlarging, now large loculated left pleural effusion with enhancing pleura. Given the multifocal pneumonia and enhancing pleura in the setting of a loculated collection, imaging findings are concerning for an empyema. Correlate quickly. Aspiration would be the most definitive diagnostic test. Multiple prominent mediastinal nodes, likely reactive. Mild cardiac enlargement. No pericardial effusion. Cholelithiasis. No active inflammation. ) PD MEDICAL DECISION MAKING - ED course Complexity details: reviewed old records, reviewed results, re-evaluated patient , considered differential, d/w patient, d/w family, d/w digital media sales consultant ED course: Patient is a 46-year-old male who presents to the emergency department with continued multilobar pneumonia and increasing loculated left pleural effusion. He appears septic at this time as well. Given IV fluids and restarted on antibiotics. Discussed the case with Dr. Kaplan, hospitalist who consulted surgery, Dr. Clemons who recommends a CT scan before admission. After the CT scan was performed and read, they both accept the patient and the patient be admitted to the hospitalist service. This document was made in part using voice recognition software. While efforts are made to proofread this document, sound alike and grammatical errors may occur. Departure - Departure Disposition: 66 [facility] DC/Xfer Clinical Impression: Influenza A, Pleural effusion, Elevated INR Anemia Qualifiers: Anemia type: unspecified type Qualified Code(s): D64.9 - Anemia, unspecified Pneumonia Qualifiers: Pneumonia type: due to unspecified organism Laterality: unspecified laterality Lung location: unspecified part of lung Qualified Code(s): J18.9 - Pneumonia, unspecified organism Sepsis Qualifiers: Sepsis type: sepsis due to unspecified organism Qualified Code(s): A41.9 - Sepsis, unspecified organism Condition: Stable Discharge Date/Time: 07/05/17 18:22
--- NOTE | 2017-07-05 15:27 | XRAY Report ---
EXAM: CHEST RADIOGRAPHY EXAM DATE: 07/05/2017 03:12 PM. CLINICAL HISTORY: Cough and fever. COMPARISON: 06/25/2017. TECHNIQUE: 2 views. FINDINGS: Lungs/Pleura: Persistent widespread opacity over the mid and lower left lung with obliteration of the hemidiaphragm and persistent mild right base infiltrate. No new or progressive findings. No sign of pneumothorax or right effusion. Mediastinum: Prior bypass. Stable dual lead left pacemaker. Other: No bony abnormality noted. IMPRESSION: Stable mild right lower lobe and extensive left lower lobe infiltrates with likely left e ffusion. [facility] Referring Provider Line: [phone] SITE ID: [id number]
[2017-07-05] MEDS ORDERED: levoFLOXacin 750 MG/150 ML 750 MG/150 ML BAG IV ONE (15:59)
[2017-07-05] MEDS ORDERED: IOPAMIDOL-300 100 ML VIAL ONE (16:54)
[2017-07-05] MEDS ORDERED: IOPAMIDOL-300 100 ML VIAL IVP ONE (17:12)
[2017-07-05] MEDS: SODIUM CHLORIDE 0.9% 1,000 ML IV ONE ×2 (17:33→18:51)
--- NOTE | 2017-07-05 17:35 | CT Preliminary Report ---
Exam: CT CHEST W/ IMPRESSION: 1. Multilobar pneumonia. 2. Enlarging, now large loculated left pleural effusion with enhancing pleura. Given the multifocal p neumonia and enhancing pleura in the setting of a loculated collection, imaging findings are concerni ng for an empyema. Correlate quickly. Aspiration would be the most definitive diagnostic tests. 3. Multiple prominent mediastinal nodes, likely reactive. 4. Mild cardiac enlargement. No pericardial effusion. 5. Cholelithiasis. No active inflammation. [facility] SITE ID: [id number]
[2017-07-05] MEDS ORDERED: ONDANSETRON ODT 4 MG TABLET TL PRN (17:51)
[2017-07-05] MEDS ORDERED: ONDANSETRON 4 MG/2 ML VIAL IVP PRN (17:51)
[2017-07-05] MEDS ORDERED: SODIUM CHLORIDE FLUSH 0.9% 10 ML SYRINGE IVP PRN (17:51)
--- NOTE | 2017-07-05 18:16 | CT Report ---
EXAM: CT CHEST EXAM DATE: 07/05/2017 05:11 PM. CLINICAL HISTORY: Cough, pleural effusion. COMPARISONS: 07/05/2017 and multiple prior chest radiographs. 06/13/2017 CT the chest. TECHNIQUE: Routine helical CT imaging was performed through the chest. IV contrast: 80 mL of Isovue 3 00. Reconstructions: Coronal and sagittal. In accordance with CT protocol optimization, one or more of the following dose reduction techniques w ere utilized for this exam: automated exposure control, adjustment of mA and/or KV based on patient s ize, or use of iterative reconstructive technique. FINDINGS: Lungs/Pleura: Mild increase in a now large left loculated pleural effusion with a possible split pleu ra sign. There is associated atelectatic changes and consolidation in the left lower lobe. Additional patchy areas of consolidation are present in the left upper lobe. Tree-in-bud opacities in the left upper lobe are concerning for superimposed bronchopneumonia. Additional areas of peribronchovascular areas of ill-defined consolidation are present in the right middle and middle lobes. No pneumothorax. Mediastinum: No thoracic aortic aneurysm, mediastinal hematoma or thoracic aortic dissection. Previou s sternotomy. Cardiac pacemaker and leads are noted in expected position. Multiple prominent mediasti nal and hilar nodes are noted includin. 1.1 x 1.0 cm right paratracheal node on image 19. 2. 2.2 x 1.2 cm subcarinal node on image 26. 3. 2 x 1.4 cm right hilar node on image 25. Bones: Unremarkable. Visualized Abdomen: Extensive gallstones with a small amount of contrast in the gallbladder lumen. No definite gallbladder fossa inflammation noted. Limited evaluation of the upper abdomen is unremarkab le. Fatty liver. No mass. Other: No thyroid nodule or mass. No axillary or supraclavicular adenopathy. IMPRESSION: 1. Multilobar pneumonia. 2. Enlarging, now large loculated left pleural effusion with enhancing pleura. Given the multifocal p neumonia and enhancing pleura in the setting of a loculated collection, imaging findings are concerni ng for an empyema. Correlate quickly. Aspiration would be the most definitive diagnostic test. 3. Multiple prominent mediastinal nodes, likely reactive. 4. Mild cardiac enlargement. No pericardial effusion. 5. Cholelithiasis. No active inflammation. [facility] Referring Provider Line: [phone] SITE ID: [id number]
[2017-07-05] MEDS ORDERED: cefTRIAXone 2 GM in SODIUM CHLORIDE 0.9% MINIBAG 100 ML IV SCH (19:00)
[2017-07-05] MEDS ORDERED: PHYTONADIONE 10 MG/ML AMP PO SCH (19:00)
[2017-07-05] MEDS ORDERED: LEVALBUTEROL 1.25 MG/3 ML NEB INH PRN (19:00)
[2017-07-05] MEDS: CLINDAMYCIN 600 MG/50 ML 50 ML IV SCH ×2 (19:05→23:33)
[2017-07-05] MEDS: SODIUM CHLORIDE 0.9% 1,000 ML IV SCH ×2 (19:05→23:40)
[2017-07-05 19:17] LABS: HB2 TOTAL 11.8 g/dL; HEMOGLOBIN A1C 0.76 g/dL
[2017-07-05] MEDS: INSULIN ASPART 300 UNIT/3 ML PEN SUBQ SCH (21:22)
[2017-07-05] MEDS: SODIUM CHLORIDE FLUSH 0.9% 10 ML SYRINGE IVP SCH (21:45)
[2017-07-05] MEDS: OSELTAMIVIR 75 MG CAPSULE PO SCH (21:45)
--- NOTE | 2017-07-05 23:28 | HISTORY & PHYSICAL EXAMINATION ---
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 The patient states that he was first hospitalized in April, in [place] where the patient is from, for pneumonia and was hospitalized there for 3-4 days. He states that he was feeling slightly better after that hospitalization and traveled to [facility] to visit his brother on , June 18, 2017. He states that after spending 3 days on [facility] he began developing worsening shortness of air and coughing and came to our emergency department. The patient was then hospitalized here at [facility] from 06/22/2017 till 06/27/2017 for healthcare associated pneumonia, loculated pleural effusion and influenza. During the hospitalization the patient had severe shortness of air, cough and was hypoxic requiring up to 4 L of oxygen. The patient initially did not appear to be improving and had his antibiotics spectrum broadened and was started on Tamiflu for treatment of influenza. The patient appeared to finally have some improvement and was down to room air at the time of discharge. The patient states that he was feeling better at discharge but at that time he still was not eating or drinking very well. The patient was discharged home on ciprofloxacin for 10 days and Tamiflu for 5 days. The patient was also given a prescription for Xopenex. The patient states that over the last 8 days initially he felt as though he was better but then over the last several days he states he has been having increasing shortness of breath. He states he is also been having increasing coughing. He states that he coughs anytime that he drinks or eats anything except bananas and granola bars. He states that the only thing he has been able to eat and due to that he has been coming weaker and weaker. The patient states that he is also becoming more lethargic and sleepy. He denies having had any fevers or chills at home but states that his coughing and shortness of air was just too much for him to handle and he came back into the emergency department today. On the patient's last hospitalization he was found to have a loculated pleural effusion and initially the plan was to drain the pleural effusion however the patient's INR was elevated and then it was over the New Year's weekend therefore there was no IR available and surgery refused to do the thoracentesis at that time because it could not be marked by ultrasound. The patient ended up improving therefore no thoracentesis was performed prior to his discharge. The patient denies any headaches, blurred vision, runny nose, sore throat, nasal congestion, he does admit to difficulty swallowing and appears to have aspiration, he does admit to some lower rib cage pain which he attributes to coughing, he denies any orthopnea, he denies any lower extremity swelling, denies any abdominal pain, denies any nausea but does admit to vomiting after spells of coughing. He denies any diarrhea, constipation, urinary urgency, urinary frequency, dysuria, joint pain, muscle aches, joint swelling, back pain , neck stiffness, recent unintentional weight loss, weight gain, skin rash, neck stiffness or any focal neurologic deficits. On presentation to the emergency department the patient is afebrile but he was tachycardic in hypotensive on presentation with a blood pressure of 86/61. The patient however was saturating well on room air and blood pressure did improve while he was in the emergency department. The patient's lab work did reveal a persistent leukocytosis of 13.8 which was increased from the time of discharge. The patient had an INR of 4.1 and his electrolytes were within normal limits. The patient did have a slightly elevated alkaline phosphatase which appears to have been chronically elevated. The patient's lactic acid was 2.3 and a repeat chest x-ray showed a stable mild right lower lobe and extensive left lower lobe infiltrate with likely left effusion. The patient also underwent a CT of his chest which revealed a multi lobar pneumonia with an enlarging now large loculated left pleural effusion and enhancing pleura. The imaging findings were concerning for empyema. Patient also had multiple mediastinal nodes. The emergency room physician spoke with the surgeon police officer crime prevention who agreed that she would be able to do a thoracentesis on the patient for aspiration of his loculated pleural effusion. The patient was admitted to the medical [facility] on IV antibiotics and will need reversal of his INR so he can be ready for a thoracentesis in the morning. History - Past Medical History Cardiovascular: reports: Atrial fibrillation, Other (ASD repair) Respiratory: reports: Pneumonia Neuro: reports: None, Headache/migraine Endocrine/Autoimmune: reports: Type 2 diabetes GI: reports: None : reports: None HEENT: reports: None Psych: reports: None Musculoskeletal: reports: None, Other (Myotonic Dystrophy) Derm: reports: None MRSA Hx?: No - Past Surgical History Cardiovascular: reports: Other - Family & Social History Family History Comment/Other: The patient's father suffered from progressive supranuclear palsy. The patient' s mother has hyperlipidemia and the patient's brother is healthy. Living arrangement: At home Living Situation: With family Social History Notes: The patient is originally from [place] and he does still live there with his mother. He is and does have 2 adopted children. The patient is only on [facility] visiting his brother but has been unable to get back because of his illness. The patient quit smoking in the year 1999 prior to that he smoked about a pack a month and states he was a social smoker. He denies any illicit drug use. - POLST Patient has POLST: No POLST Status: Full Code Meds/Allgy - Home Medications Home Medications: Ambulatory Orders Medication Instructions Recorded Confirmed Aspirin [Adult Low Dose Aspirin EC] 81 mg PO DAILY 06/21/17 07/05/17 Bisoprolol Fumarate 10 mg PO DAILY 06/21/17 07/05/17 Digoxin 250 mg PO DAILY 06/21/17 07/05/17 Saxagliptin HCl/Metformin HCl 2.5 - 1,000 mg PO DAILY 06/21/17 07/05/17 [Kombiglyze Xr 2.5-1,000 mg Tab] Warfarin Sodium [Coumadin] 2 mg PO DAILY 06/21/17 07/05/17 Ciprofloxacin/Ciprofloxa HCl 500 mg PO BID #20 tbmp.24hr 06/27/17 07/05/17 [Ciprofloxacin ER 500 mg Tablet] Levalbuterol [Xopenex] 1.25 mg INH Q4H PRN #2 neb 06/27/17 07/05/17 Oseltamivir [Tamiflu] 75 mg PO BID #10 capsule 06/27/17 07/05/17 - Allergies Allergies/Adverse Reactions: Allergies Allergy/AdvReac Type Severity Reaction Status Date / Time Penicillins Allergy Intermediate Rash Verified 06/21/17 12:07 Review of Systems - Other Findings Other Findings: A comprehensive review of systems was performed the pertinent positives and negatives are stated above in the HPI and the remainder of the review of systems is negative. Exam - Vital Signs Reviewed Vital Signs: Yes Vital Signs: Vital Signs x48h Temp Pulse Pulse Resp BP BP Pulse Ox 07/05/17 18:23 36.7 C 102 H 22 95/68 94 07/05/17 17:59 36.7 C 99 18 113/76 96 - Physical Exam General Appearance: positive: Alert, Mild distress (Respiratory) Eyes Bilateral: positive: Normal inspection, PERRL, EOMI, No lid inflammation, Conjunctivae nml, No scleral icterus ENT: positive: ENT inspection nml, Pharynx nml, Dry mucous membranes. negative : Purulent nasal drainage, Pharyngeal erythema, Oral lesions Neck: positive: Nml inspection, Thyroid nml, No JVD, Trachea midline. negative : Thyromegaly, Lymphadenopathy (R), Lymphadenopathy (L), Stiff neck, Carotid bruit, Tracheal deviation Respiratory: positive: Chest non-tender, Rales, Rhonchi (Coarse breath sounds bilaterally), Other (Mild respiratory distress) Cardiovascular: positive: No murmur, No gallop, Irregularly irregular, Tachycardia Peripheral Pulses: positive: 2+ Abdomen: positive: Non-tender, No organomegaly, Nml bowel sounds, No distention. negative: Guarding, Rebound, Hepatomegaly Back: positive: Nml inspection. negative: CVA tenderness (R), CVA tenderness (L ) Skin: positive: Color nml, No rash, Warm. negative: Cyanosis, Diaphoresis, Pallor Extremities: positive: Non-tender, Full ROM, Nml appearance, No pedal edema Neurologic/Psychiatric: positive: Oriented x3, CN's nml (2-12), Motor nml, Sensation nml, Mood/affect nml Conclusion/Plan - Problem List (1) HCAP (healthcare-associated pneumonia) Conclusion/Plan: Patient initially had in April, in [place]. The patient was treated at that time but redeveloped pneumonia in May and was hospitalized again here at [facility]. At that time he was treated for healthcare associated pneumonia and eventually was discharged home on ciprofloxacin. The patient has been taking antibiotics at home for the last 8 days but symptoms have worsened. On presentation to the ER today patient has persistent leukocytosis and tachycardia. The patient's chest x-ray shows worsening pneumonia and CT scan shows multifocal pneumonia with a loculated pleural effusion which is worsening from previous and is consistent with an empyema. The patient has history of myotonic dystrophy with history of dysphasia and it is concerning as patient's history reveals the patient is having coughing whenever he eats or drinks that patient may be having aspiration pneumonia. Plan: Patient will be placed on broad-spectrum antibiotics with cefepime and clindamycin Swallow study Surgical consult for thoracentesis and aspiration of empyema Supplemental oxygen Nebs as needed (2) Empyema Conclusion/Plan: The patient's CT shows a loculated pleural effusion concerning for empyema. Given the patient's recurrent pneumonias, leukocytosis, tachycardia and presentation with lactic acidosis. This definitely appears to be an empyema. The patient needs drainage of the empyema. Surgery has agreed that they were willing to do drainage once patient's INR is improved. Plan: Surgical consult for thoracentesis and aspiration of empyema IV antibiotics to cover healthcare associated pneumonia Supplemental oxygen Send fluid from thoracentesis for culture Vitamin K to reverse INR (3) Elevated INR Conclusion/Plan: The patient has an elevated INR he is on Coumadin for atrial fibrillation Patient's INR needs to be reversed for thoracentesis Patient will be given vitamin K and FFP's if needed We will monitor patient's INR (4) Atrial fibrillation Conclusion/Plan: Patient has history of chronic atrial fibrillation and is on digoxin for rate control and Coumadin for anticoagulation. On presentation to the emergency department the patient is supratherapeutic with his INR with an INR of 4.1 We will hold the patient's Coumadin and place him on vitamin K to reverse the effects of Coumadin as patient will need thoracentesis We will continue digoxin We will monitor the patient on telemetry Qualifiers: Atrial fibrillation type: chronic Qualified Code(s): I48.2 - Chronic atrial fibrillation (5) Diabetes Conclusion/Plan: The patient has a history of type 2 diabetes and is on metformin and saxagliptin at home While patient is hospitalized he will be placed on sliding scale insulin We will check patient's blood glucose before meals at bedtime Qualifiers: Diabetes mellitus type: type 2 - Lab Results Lab results reviewed: Yes Fish Bones: 07/05/17 13:43 07/05/17 13:43 Other Lab Results: Laboratory Results WBC 13.8 x10^3/uL (4.8-10.8) H 07/05/17 13:43 RBC 4.39 10^6/uL (4.70-6.10) L 07/05/17 13:43 Hgb 10.6 g/dL (14.0-18.0) L 07/05/17 13:43 Hct 34.4 % (42.0-52.0) L 07/05/17 13:43 MCV 78.3 fL (80.0-94.0) L 07/05/17 13:43 MCH 24.1 pg (27.0-31.0) L 07/05/17 13:43 MCHC 30.8 g/dL (32.0-36.0) L 07/05/17 13:43 RDW 19.4 % (12.0-15.0) H 07/05/17 13:43 Plt Count 704 10^3/uL (130-450) H 07/05/17 13:43 MPV 7.7 fL (7.4-11.4) 07/05/17 13:43 Neut # 10.7 10^3/uL (1.5-6.6) H 07/05/17 13:43 Lymph # 2.2 10^3/uL (1.5-3.5) 07/05/17 13:43 Robertson # 0.8 10^3/uL (0.0-1.0) 07/05/17 13:43 Eos # 0.1 10^3/uL (0.0-0.7) 07/05/17 13:43 Baso # 0.1 10^3/uL (0.0-0.1) 07/05/17 13:43 Absolute Nucleated RBC 0.00 x10^3/uL 07/05/17 13:43 Nucleated RBC % 0.0 /100WBC 07/05/17 13:43 PT 43.7 secs (9.9-12.6) H 07/05/17 13:43 INR 4.1 (0.8-1.2) H 07/05/17 13:43 Sodium 135 mmol/L (135-145) 07/05/17 13:43 Potassium 4.9 mmol/L (3.5-5.0) 07/05/17 13:43 Chloride 98 mmol/L (101-111) L 07/05/17 13:43 Carbon Dioxide 28 mmol/L (21-32) 07/05/17 13:43 Anion Gap 9.0 (6-13) 07/05/17 13:43 BUN 10 mg/dL (6-20) 07/05/17 13:43 Creatinine 0.8 mg/dL (0.6-1.2) 07/05/17 13:43 Estimated GFR (MDRD) 103 (>89) 07/05/17 13:43 Glucose 129 mg/dL (70-100) H 07/05/17 13:43 POC Whole Bld Glucose 124 mg/dL (70 - 100) H 07/05/17 20:53 Glycated Hemoglobin 8.0 % (4.6-6.2) H 07/05/17 13:43 Estim Average Glucose 183 (70-100) H 07/05/17 13:43 Lactic Acid 2.3 mmol/L (0.5-2.2) H 07/05/17 15:34 Calcium 9.3 mg/dL (8.5-10.3) 07/05/17 13:43 Total Bilirubin 0.6 mg/dL (0.2-1.0) 07/05/17 13:43 AST 29 IU/L (10-42) 07/05/17 13:43 ALT 25 IU/L (10-60) 07/05/17 13:43 Alkaline Phosphatase 346 IU/L (42-121) H 07/05/17 13:43 Total Protein 10.1 g/dL (6.7-8.2) H 07/05/17 13:43 Albumin 2.8 g/dL (3.2-5.5) L 07/05/17 13:43 Globulin 7.3 g/dL (2.1-4.2) H 07/05/17 13:43 Albumin/Globulin Ratio 0.4 (1.0-2.2) L 07/05/17 13:43 Lipase 30 U/L (22-51) 07/05/17 13:43 - Diagnostic Imaging Results Diagnostic Imaging Results: positive: Final report reviewed Diagnostic Imaging Results Comments: CHEST RADIOGRAPHY EXAM DATE: 07/05/2017 03:12 PM. CLINICAL HISTORY: Cough and fever. COMPARISON: 06/25/2017. TECHNIQUE: 2 views. FINDINGS: Lungs/Pleura: Persistent widespread opacity over the mid and lower left lung with obliteration of the hemidiaphragm and persistent mild right base infiltrate. No new or progressive findings. No sign of pneumothorax or right effusion. Mediastinum: Prior bypass. Stable dual lead left pacemaker. Other: No bony abnormality noted. IMPRESSION: Stable mild right lower lobe and extensive left lower lobe infiltrates with likely left effusion. CT CHEST EXAM DATE: 07/05/2017 05:11 PM. CLINICAL HISTORY: Cough, pleural effusion. COMPARISONS: 07/05/2017 and multiple prior chest radiographs. 06/13/2017 CT the chest. TECHNIQUE: Routine helical CT imaging was performed through the chest. IV contrast: 80 mL of Isovue 300. Reconstructions: Coronal and sagittal. In accordance with CT protocol optimization, one or more of the following dose reduction techniques were utilized for this exam: automated exposure control, adjustment of mA and/or KV based on patient size, or use of iterative reconstructive technique. FINDINGS: Lungs/Pleura: Mild increase in a now large left loculated pleural effusion with a possible split pleura sign. There is associated atelectatic changes and consolidation in the left lower lobe. Additional patchy areas of consolidation are present in the left upper lobe. Tree-in-bud opacities in the left upper lobe are concerning for superimposed bronchopneumonia. Additional areas of peribronchovascular areas of ill-defined consolidation are present in the right middle and middle lobes. No pneumothorax. Mediastinum: No thoracic aortic aneurysm, mediastinal hematoma or thoracic aortic dissection. Previous sternotomy. Cardiac pacemaker and leads are noted in expected position. Multiple prominent mediastinal and hilar nodes are noted includin. 1.1 x 1.0 cm right paratracheal node on image 19. 2. 2.2 x 1.2 cm subcarinal node on image 26. 3. 2 x 1.4 cm right hilar node on image 25. Bones: Unremarkable. Visualized Abdomen: Extensive gallstones with a small amount of contrast in the gallbladder lumen. No definite gallbladder fossa inflammation noted. Limited evaluation of the upper abdomen is unremarkable. Fatty liver. No mass. Other: No thyroid nodule or mass. No axillary or supraclavicular adenopathy. IMPRESSION: 1. Multilobar pneumonia. 2. Enlarging, now large loculated left pleural effusion with enhancing pleura. Given the multifocal pneumonia and enhancing pleura in the setting of a loculated collection, imaging findings are concerning for an empyema. Correlate quickly. Aspiration would be the most definitive diagnostic test. 3. Multiple prominent mediastinal nodes, likely reactive. 4. Mild cardiac enlargement. No pericardial effusion. 5. Cholelithiasis. No active inflammation. - EKG Results EKG Interpreted Independently: Yes EKG Comparison: Unchanged from prior EKG Core Measures - Anticipated LOS I expect patient to be DC'd or transferred within 96 hours.: Yes - DVT/VTE - Prophylaxis VTE/DVT Device ordered at admit?: Yes
[2017-07-06] MEDS: CEFEPIME 2 GM in SODIUM CHLORIDE 0.9% MINIBAG 100 ML IV SCH ×2 (05:09→16:36)
[2017-07-06 06:04] LABS: BASOPHILS # (AUTO) 0.1 10^3/uL (0.0-0.1); BASOPHILS % (AUTO) 0.9 %; EOSINOPHILS # (AUTO) 0.1 10^3/uL (0.0-0.7); EOSINOPHILS % (AUTO) 0.8 %; HGB - HEMOGLOBIN 9.2 g/dL (14.0-18.0); LYMPHOCYTES # (AUTO) 2.2 10^3/uL (1.5-3.5); LYMPHOCYTES % (AUTO) 19.5 %; MEAN CORPUSCULAR HEMOGLOBIN 24.2 pg (27.0-31.0); MEAN CORPUSCULAR HGB CONC 30.2 g/dL (32.0-36.0); MEAN PLATELET VOLUME 7.6 fL (7.4-11.4); MONOCYTES # (AUTO) 0.8 10^3/uL (0.0-1.0); MONOCYTES % (AUTO) 7.1 %; NEUTROPHILS # (AUTO) 8.1 10^3/uL (1.5-6.6); NEUTROPHILS % (AUTO) 71.7 %; PLT - PLATELET COUNT 546 10^3/uL (130-450); RED CELL DISTRIBUTION WIDTH 19.6 % (12.0-15.0); WHITE BLOOD COUNT 11.3 x10^3/uL (4.8-10.8)
[2017-07-06] MEDS: CLINDAMYCIN 600 MG/50 ML 50 ML IV SCH ×4 (06:05→23:27)
[2017-07-06] MEDS: SODIUM CHLORIDE FLUSH 0.9% 10 ML SYRINGE IVP SCH ×3 (06:06→13:21)
[2017-07-06 06:07] LABS: CALCIUM 8.5 mg/dL (8.5-10.3); CREATININE 0.7 mg/dL (0.6-1.2)
[2017-07-06] MEDS: PANTOPRAZOLE 40 MG TABLET PO SCH (06:09)
[2017-07-06 06:16] LABS: PT - PROTHROMBIN TIME 60.1 secs (9.9-12.6)
[2017-07-06 06:23] LABS: INR 5.7 (0.8-1.2)
[2017-07-06] MEDS ORDERED: PHYTONADIONE INJ (ADULT) 10 MG in SODIUM CHLORIDE 0.9% 50 ML IV SCH (06:25)
[2017-07-06] MEDS: INSULIN ASPART 300 UNIT/3 ML PEN SUBQ SCH ×4 (08:41→20:23)
[2017-07-06] MEDS: OSELTAMIVIR 75 MG CAPSULE PO SCH ×2 (08:45→20:28)
[2017-07-06] MEDS: DIGOXIN 125 MCG TABLET PO SCH (08:46)
[2017-07-06] MEDS: BISOPROLOL FUMARATE 10 MG PO SCH (08:47)
[2017-07-06] MEDS ORDERED: POLYETHYLENE GLYCOL 3350 17 GM PACKET PO SCH (09:00)
[2017-07-06 11:31] LABS: PT - PROTHROMBIN TIME 32.5 secs (9.9-12.6)
--- NOTE | 2017-07-06 12:42 | PROVIDER PROGRESS NOTE ---
Subjective - Prog Note Date Prog Note Date: 07/06/17 Prog Note Time: 12:48 - Subjective Subjective: watching TV and playing on tablet. He denies pain. just tired. appetitie down but feels better than yesterday. Current Medications - Current Medications Current Medications: Active Medications Digoxin (Lanoxin) 250 mcg PO DAILY [facility] Last Admin: 07/06/17 08:46 Dose: 250 mcg Hydromorphone HCl (Dilaudid Inj Syringe) 0.5 mg IVP Q2H PRN PRN Reason: Pain 8 to 10 Clindamycin Phosphate (Cleocin 600 Mg/50 Ml) 50 mls @ 100 mls/hr IV Q6HR [facility] Last Infusion: 07/06/17 12:30 Dose: Infused Sodium Chloride (Normal Saline 0.9%) 1,000 mls @ 100 mls/hr IV .Q10H [facility] Last Infusion: 07/06/17 06:49 Dose: 100 mls/hr Cefepime HCl 2 gm/ Sodium (Chloride) 100 mls @ 200 mls/hr IV BID@0500,1700 [facility] Last Infusion: 07/06/17 05:53 Dose: Infused Insulin Aspart (Novolog) 1 - 9 unit SUBQ 0800,1200,1700,2100 [facility] PRN Reason: Protocol Last Admin: 07/06/17 11:23 Dose: 1 unit Levalbuterol HCl (Xopenex) 1.25 mg INH RTQ4H PRN PRN Reason: Wheezing Ondansetron HCl (Zofran Inj) 4 mg IVP Q6HR PRN PRN Reason: Nausea / Vomiting Ondansetron HCl (Zofran Odt) 4 mg TL Q6HR PRN PRN Reason: Nausea / Vomiting Oseltamivir Phosphate (Tamiflu) 75 mg PO BID [facility] Last Admin: 07/06/17 08:45 Dose: 75 mg Oxycodone HCl (Roxicodone) 5 mg PO Q4HR PRN PRN Reason: Pain 5 to 7 Pantoprazole Sodium (Protonix) 40 mg PO QDAC [facility] Last Admin: 07/06/17 06:09 Dose: 40 mg (Bisoprolol Fumarate [Bisoprolol Fumarate] 10 Mg) Tab 1 each PO DAILY [facility] Last Admin: 07/06/17 08:47 Dose: Not Given Polyethylene Glycol (Miralax) 17 gm PO DAILY [facility] Last Admin: 07/06/17 08:47 Dose: Not Given Sodium Chloride (Normal Saline Flush 0.9%) 10 ml IVP PRN PRN PRN Reason: NEEDED PER PROVIDER ORDERS Sodium Chloride (Normal Saline Flush 0.9%) 10 ml IVP Q8HR [facility] Last Admin: 07/06/17 10:36 Dose: 10 ml Aspirin [Adult Low Dose Aspirin EC] 81 mg PO DAILY 06/21/17 Bisoprolol Fumarate 10 mg PO DAILY 06/21/17 Digoxin 250 mg PO DAILY 06/21/17 Saxagliptin HCl/Metformin HCl [Kombiglyze Xr 2.5-1,000 mg Tab] 2.5 - 1,000 mg PO DAILY 06/21/17 Warfarin Sodium [Coumadin] 2 mg PO DAILY 06/21/17 Objective - Vital Signs/Intake & Output Reviewed Vital Signs: Yes Vital Signs: Vital Signs x48h Temp Pulse Pulse Resp BP BP BP 07/06/17 10:30 37.1 C 85 85 18 105/67 105/67 07/06/17 10:03 36.9 C 95 20 112/67 07/06/17 10:00 97 22 07/06/17 09:45 36.9 C 91 24 112/67 07/06/17 09:30 37.1 C 91 18 111/77 07/06/17 09:25 37.1 C 92 18 111/77 07/06/17 07:49 36.9 C 88 19 106/66 Pulse Ox 07/06/17 10:30 95 07/06/17 10:03 07/06/17 10:00 07/06/17 09:45 07/06/17 09:30 07/06/17 09:25 93 07/06/17 07:49 95 Intake & Output: Intake & Output 07/03/17 07/04/17 07/05/17 07/06/17 23:59 23:59 23:59 23:59 Intake Total 3356.340 7056.000 Balance 2045.415 1976.000 - Objective General Appearance: positive: No acute distress, Alert, Other (thin white male who looks younger than stated age. ?cognitive delay. he feels better than yesterday) Eyes Bilateral: positive: PERRL, EOMI ENT: positive: Pharynx nml, Other (poor dental) Neck: positive: No JVD. negative: Lymphadenopathy (R), Lymphadenopathy (L), Stiff neck, Carotid bruit Respiratory: positive: No respiratory distress, Rales, Rhonchi (both lungs, not just involved lung), Other (no dullness but does have egophony) Cardiovascular: positive: Irregularly irregular, Systolic murmur. negative: Gallop/S4, Friction rub Abdomen: positive: Non-tender, No organomegaly, Nml bowel sounds, No distention Skin: positive: Warm, Dry Extremities: positive: Non-tender, No pedal edema, Other (thin arms and legs) Neurologic/Psychiatric: positive: Oriented x3, CN's nml (2-12), Motor nml - Lab Results Fish Bones: 07/06/17 05:10 07/06/17 05:10 Other Labs: Lab Results x24hrs 07/06/17 07/06/17 07/06/17 Range/Units 11:21 11:18 07:41 WBC (4.8-10.8) x10^3/uL RBC (4.70-6.10) 10^6/uL Hgb (14.0-18.0) g/dL Hct (42.0-52.0) % MCV (80.0-94.0) fL MCH (27.0-31.0) pg MCHC (32.0-36.0) g/dL RDW (12.0-15.0) % Plt Count (130-450) 10^3/uL MPV (7.4-11.4) fL Neut # (1.5-6.6) 10^3/uL Lymph # (1.5-3.5) 10^3/uL Caswell # (0.0-1.0) 10^3/uL Eos # (0.0-0.7) 10^3/uL Baso # (0.0-0.1) 10^3/uL Absolute Nucleated RBC x10^3/uL Nucleated RBC % /100WBC PT 32.5 H (9.9-12.6) secs INR 3.0 H (0.8-1.2) Sodium (135-145) mmol/L Potassium (3.5-5.0) mmol/L Chloride (101-111) mmol/L Carbon Dioxide (21-32) mmol/L Anion Gap (6-13) BUN (6-20) mg/dL Creatinine (0.6-1.2) mg/dL Estimated GFR (MDRD) (>89) Glucose (70-100) mg/dL POC Whole Bld Glucose 147 H 112 H (70 - 100) mg/dL Calcium (8.5-10.3) mg/dL Blood Type Antibody Screen 07/06/17 07/06/17 07/06/17 Range/Units 06:38 05:10 05:10 WBC (4.8-10.8) x10^3/uL RBC (4.70-6.10) 10^6/uL Hgb (14.0-18.0) g/dL Hct (42.0-52.0) % MCV (80.0-94.0) fL MCH (27.0-31.0) pg MCHC (32.0-36.0) g/dL RDW (12.0-15.0) % Plt Count (130-450) 10^3/uL MPV (7.4-11.4) fL Neut # (1.5-6.6) 10^3/uL Lymph # (1.5-3.5) 10^3/uL Caswell # (0.0-1.0) 10^3/uL Eos # (0.0-0.7) 10^3/uL Baso # (0.0-0.1) 10^3/uL Absolute Nucleated RBC x10^3/uL Nucleated RBC % /100WBC PT 60.1 H (9.9-12.6) secs INR 5.7 H* (0.8-1.2) Sodium 139 (135-145) mmol/L Potassium 4.9 (3.5-5.0) mmol/L Chloride 105 (101-111) mmol/L Carbon Dioxide 20 L (21-32) mmol/L Anion Gap 14.0 H (6-13) BUN 9 (6-20) mg/dL Creatinine 0.7 (0.6-1.2) mg/dL Estimated GFR (MDRD) 120 (>89) Glucose 119 H (70-100) mg/dL POC Whole Bld Glucose (70 - 100) mg/dL Calcium 8.5 (8.5-10.3) mg/dL Blood Type A POSITIVE Antibody Screen NEGATIVE 07/06/17 07/05/17 07/05/17 Range/Units 05:10 20:53 18:35 WBC 11.3 H (4.8-10.8) x10^3/uL RBC 3.80 L (4.70-6.10) 10^6/uL Hgb 9.2 L (14.0-18.0) g/dL Hct 30.4 L (42.0-52.0) % MCV 80.0 (80.0-94.0) fL MCH 24.2 L (27.0-31.0) pg MCHC 30.2 L (32.0-36.0) g/dL RDW 19.6 H (12.0-15.0) % Plt Count 546 H (130-450) 10^3/uL MPV 7.6 (7.4-11.4) fL Neut # 8.1 H (1.5-6.6) 10^3/uL Lymph # 2.2 (1.5-3.5) 10^3/uL Caswell # 0.8 (0.0-1.0) 10^3/uL Eos # 0.1 (0.0-0.7) 10^3/uL Baso # 0.1 (0.0-0.1) 10^3/uL Absolute Nucleated RBC 0.00 x10^3/uL Nucleated RBC % 0.0 /100WBC PT (9.9-12.6) secs INR (0.8-1.2) Sodium (135-145) mmol/L Potassium (3.5-5.0) mmol/L Chloride (101-111) mmol/L Carbon Dioxide (21-32) mmol/L Anion Gap (6-13) BUN (6-20) mg/dL Creatinine (0.6-1.2) mg/dL Estimated GFR (MDRD) (>89) Glucose (70-100) mg/dL POC Whole Bld Glucose 124 H 117 H (70 - 100) mg/dL Calcium (8.5-10.3) mg/dL Blood Type Antibody Screen Assessment/Plan - Problem List (1) HCAP (healthcare-associated pneumonia) Impression: Patient initially had in April, in [place]. The patient was treated at that time but redeveloped pneumonia in May and was hospitalized again here at [facility]. At that time he was treated for healthcare associated pneumonia and eventually was discharged home on ciprofloxacin. The patient has been taking antibiotics at home for the last 8 days but symptoms have worsened. On presentation to the ER today patient has persistent leukocytosis and tachycardia. The patient's chest x-ray shows worsening pneumonia and CT scan shows multifocal pneumonia with a loculated pleural effusion which is worsening from previous and is consistent with an empyema. The patient has history of myotonic dystrophy with history of dysphasia and it is concerning as patient's history reveals the patient is having coughing whenever he eats or drinks that patient may be having aspiration pneumonia. Plan: Patient will be placed on broad-spectrum antibiotics with cefepime and clindamycin, Day #2. Swallow study ordered and pending Surgical consult done for thoracentesis and aspiration of empyema and to go to OR today Supplemental oxygen Nebs as needed (2) Empyema Conclusion/Plan: The patient's CT shows a loculated pleural effusion concerning for empyema. Given the patient's recurrent pneumonias, leukocytosis, tachycardia and presentation with lactic acidosis. This definitely appears to be an empyema. The patient needs drainage of the empyema. Surgery has agreed that they were willing to do drainage once patient's INR is improved. Plan: Surgical consult for thoracentesis and aspiration of empyema done today.He is add on for this afternoon IV antibiotics to cover healthcare associated pneumonia Supplemental oxygen Send fluid from thoracentesis for culture Vitamin K to reverse INR was given last night. INR still high, and given more Vit K and FFP before the OR (3) Elevated INR Conclusion/Plan: The patient has an elevated INR he is on Coumadin for atrial fibrillation Patient's INR needs to be reversed for thoracentesis Patient will be given vitamin K and FFP's if needed today after didn't go down after last night's Vit K We will monitor patient's INR (4) Atrial fibrillation Conclusion/Plan: Patient has history of chronic atrial fibrillation and is on digoxin for rate control and Coumadin for anticoagulation. On presentation to the emergency department the patient is supratherapeutic with his INR with an INR of 4.1 We will hold the patient's Coumadin and place him on vitamin K to reverse the effects of Coumadin as patient will need thoracentesis We will continue digoxin We will monitor the patient on telemetry Qualifiers: Atrial fibrillation type: chronic Qualified Code(s): I48.2 - Chronic atrial fibrillation (5) Diabetes Conclusion/Plan: The patient has a history of type 2 diabetes and is on metformin and saxagliptin at home While patient is hospitalized he will be placed on sliding scale insulin We will check patient's blood glucose before meals at bedtime Laboratory Tests 07/05/17 07/05/17 07/06/17 18:35 20:53 07:41 POC Whole Bld Glucose 117 H 124 H 112 H 07/06/17 11:18 POC Whole Bld Glucose 147 H Qualifiers: Diabetes mellitus type: type 2
[2017-07-06] MEDS ORDERED: LACTATED RINGERS 1,000 ML IV ONE ×2 (13:58)
[2017-07-06] MEDS ORDERED: LIDOCAINE 1% 50 ML MDV SUBQ ONE ×2 (14:18)
[2017-07-06] MEDS ORDERED: BUPIVACAINE 0.25%-EPI 1:200000 PF 30 ML VIAL SUBQ ONE ×2 (14:19)
[2017-07-06] MEDS ORDERED: PROPOFOL 200 MG/20 ML VIAL IVP ONE (14:20)
[2017-07-06] MEDS ORDERED: MIDAZOLAM 2 MG/2 ML VIAL IVP ONE (14:20)
[2017-07-06] MEDS ORDERED: fentaNYL 100 MCG/2 ML VIAL IVP ONE (14:20)
[2017-07-06] MEDS ORDERED: oxyCOD/ACETAMIN 5 MG/325 MG TABLET PO PRN (14:35)
[2017-07-06] MEDS: SODIUM CHLORIDE 0.9% 1,000 ML IV SCH (14:48)
--- NOTE | 2017-07-06 16:07 | XRAY Report ---
DATE OF SERVICE: FRONTAL CHEST: 07/06/2017 CLINICAL INDICATION: Attempted chest tube placement. COMPARISON: CT of 07/05/2017. FINDINGS: Frontal view of the chest demonstrates a normal cardiac silhouette. Changes of previous cardiac surgery and left subclavian pacemaker are stable. Left pleural and parenchymal disease is unchanged. Minimal right basilar infiltrate is noted. No pneumothorax is present. IMPRESSION: NO PNEUMOTHORAX FOLLOWING ATTEMPTED CHEST TUBE PLACEMENT. NO SIGNIFICANT INTERVAL CHANGE IN PLEURAL AND PARENCHYMAL DISEASE. TD: 07/06/2017 17:06
[2017-07-06] MEDS: HYDROmorphone 1 MG/ML SYRINGE IVP PRN ×2 (17:06→21:42)
--- NOTE | 2017-07-06 17:36 | CONSULTATION NOTE ---
DATE OF SERVICE: Physician: Ariadna Clemons MD DATE OF CONSULTATION: 07/05/2017 REASON FOR CONSULTATION: Pneumonia with left-sided empyema. HISTORY OF PRESENT ILLNESS: This is a 46-year-old male who was admitted to [facility] in May for pneumonia and a pleural effusion. He is visiting from [place] and prior to his visit he had begun treatment for flu like symtoms in early may. He failed to improved and was admitted to 3 weeks ago. He was treated for pneumonia with IV antibiotics for a week and discharged home on oral antibiotics. He returned to the Emergency Department on 07/05/2017 with progressive weakness, fever and chills. His white blood cell count was noted to be elevated at 14. A CT scan of the chest was performed, which demonstrated persistent left -sided pneumonia with a large left-sided loculated effusion concerning for empyema. He was admitted to the medical service and a surgical consultation obtained for a chest tube placement. Upon my evaluation, the patient is not in any respiratory distress and is breathing comfortably. Notably , on admission his INR was 4.1 and today has increased to 5.7. He is on coumadin for atrial fibrillation. PAST MEDICAL HISTORY: Significant for atrial septal defect, status post repair in 2011 in [place], subsequent atrial fibrillation on Coumadin, type 2 diabetes, myotonic dystrophy and recurrent pneumonia. PAST SURGICAL HISTORY: Atrial septal defect repair in 2011. SOCIAL HISTORY: The patient is visiting from [place] with his mother. He is visiting his brother. The patient used to smoke, but quit in 1999. He denies any IV drug abuse. PHYSICAL EXAMINATION: VITAL SIGNS: Temperature is 39.9, blood pressure 120/76, heart rate is 77, respiratory rate 18, O2 saturation is 96% on room air. GENERAL: Awake, alert, oriented x3, in no acute distress. He is of average build. HEART: Irregularly irregular. CHEST: Diminished breath sounds on the left, normal breath sounds on the right. ABDOMEN: Soft and nondistended. EXTREMITIES: Well perfused and nonedematous. LABORATORY DATA: White blood cell count 13.8, hemoglobin 10.6, hematocrit 34.4 , platelets 704. INR on admission was 4.1, on hospital day #1 is 5.7. PT was 60.1. Sodium 139 , potassium 4.9, chloride 105, bicarbonate 20, BUN 9, creatinine 0.7. CT scan of the chest demonstrates a large loculated left-sided empyema with concomitant demonstration of pneumonia. ASSESSMENT AND PLAN: This is a 46-year-old male with pneumonia and left-sided empyema. PLAN: Will plan for a chest tube placement and drainage of empyema. I did indicate to the patient that it is possible that his empyema would not be able to be fully drained due to the prolonged length of his symptoms and the loculated features on the CT scan. If this is the case, he may require transfer to a center with a higher level of care with thoracic surgery capabilities. The patient will be continued on IV antibiotics in the interim. TD: 07/06/2017 18:35 STEF
--- NOTE | 2017-07-06 17:43 | PROCEDURE REPORT ---
Physician: Ariadna Clemons MD DATE OF PROCEDURE: 07/06/2017 SURGEON: Dr. Clemons. PROCEDURE PERFORMED: Attempted left chest tube placement. PREOPERATIVE DIAGNOSIS: Left-sided empyema. POSTOPERATIVE DIAGNOSIS: Left-sided empyema. INDICATIONS FOR PROCEDURE: This is a 46-year-old male with a left-sided empyema. FINDINGS: After obtaining informed consent from the patient, he was brought to our PACU and positioned in the supine position. He was administered sedation. He was subsequently prepped and draped in the usual sterile fashion, and a timeout was taken according to protocol. An incision was made in the mid axillary line between the 5th and 6th intercostal spaces. This was deepened down to the rib injecting lidocaine in this tract. The Vira clamp was then utilized to enter the pleural space above the sixth rib. Entrance into the pleural space did not lead to any evacuation of fluid. My finger was then placed into this hole I was only able to palpated adhesions or possibly the abscess cavity. I attempted to place an 18 gauge needle into the abscess cavity, however, no able to be withdrawn. The bedside ultrasound was then utilized to attempt to delineate the lung from abscess cavity. Additionally, our radiologist, Dr. Wilkes, performed a bedside ultrasound and indicated a safe spot for entrance which was slightly more posterior to my incision. A second incision was then made to access the abscess cavity. Similar procedure was undertaken dissecting to the rib and entering the pleural space just above the rib. I again was unable to penetrate the abscess cavity and again, multiple adhesions were noted in this area. 18-gauge needles were inserted into both incisions through the dense tissue but again I was unable to evacuate any purulent fluid. For concern for causing lung injury the procedure was aborted. A red rubber catheter was inserted into the incisions and a pursestring placed at the incision sites . The red rubber catheters were removed on suction while the pursestrings were closed to evacuate any potential air that may have entered the pleural space. Xeroform dressings were applied. The patient was taken back to his room in stable condition. ESTIMATED BLOOD LOSS: Minimal. COMPLICATIONS: Unable to insert a chest tube. PLAN: The patient will require transfer to [facility] for definitive treatment of left-sided empyema. TD: 07/06/2017 18:42 [facility]
[2017-07-07] MEDS: oxyCODONE 5 MG TABLET PO PRN ×2 (04:41→09:57)
[2017-07-07] MEDS: SODIUM CHLORIDE 0.9% 1,000 ML IV SCH ×2 (04:44→10:22)
[2017-07-07] MEDS: CEFEPIME 2 GM in SODIUM CHLORIDE 0.9% MINIBAG 100 ML IV SCH (05:06)
[2017-07-07] MEDS: CLINDAMYCIN 600 MG/50 ML 50 ML IV SCH (06:02)
[2017-07-07] MEDS: SODIUM CHLORIDE FLUSH 0.9% 10 ML SYRINGE IVP SCH (06:04)
[2017-07-07 06:22] LABS: INR 1.7 (0.8-1.2); PT - PROTHROMBIN TIME 19.1 secs (9.9-12.6)
[2017-07-07 06:23] LABS: BASOPHILS % (AUTO) 1.1 %; EOSINOPHILS % (AUTO) 1.2 %; HGB - HEMOGLOBIN 7.9 g/dL (14.0-18.0); LYMPHOCYTES % (AUTO) 16.2 %; MEAN CORPUSCULAR HEMOGLOBIN 24.3 pg (27.0-31.0); MEAN CORPUSCULAR HGB CONC 29.7 g/dL (32.0-36.0); MEAN CORPUSCULAR VOLUME 81.7 fL (80.0-94.0); MEAN PLATELET VOLUME 7.8 fL (7.4-11.4); MONOCYTES % (AUTO) 9.4 %; NEUTROPHILS % (AUTO) 72.1 %; PLT - PLATELET COUNT 520 10^3/uL (130-450); RED BLOOD COUNT 3.25 10^6/uL (4.70-6.10); RED CELL DISTRIBUTION WIDTH 19.7 % (12.0-15.0); WHITE BLOOD COUNT 10.3 x10^3/uL (4.8-10.8)
[2017-07-07 06:25] LABS: CALCIUM 8.3 mg/dL (8.5-10.3); CREATININE 0.8 mg/dL (0.6-1.2)
[2017-07-07 06:34] LABS: ABNORMAL LYMPHS % (MANUAL) 0 %; BAND NEUTROPHILS % (MANUAL) 0 %
[2017-07-07 07:16] LABS: BASOPHILS # (MANUAL) 0.1 10^3/uL (0-0.1); BASOPHILS % (MANUAL) 1 %; LYMPHOCYTES # (MANUAL) 1.4 10^3/uL (1.5-3.5); LYMPHOCYTES % (MANUAL) 14 %; MONOCYTES # (MANUAL) 0.9 10^3/uL (0.0-1.0); NEUTROPHILS # (MANUAL) 7.8 10^3/uL (1.5-6.6); NEUTROPHILS % (MANUAL) 76 %
[2017-07-07 07:17] LABS: DIFFERENTIAL COMMENT MANUAL DIFFERENTIAL; PLATELET ESTIMATE, MANUAL INCREASED (>450,000) (NORMAL); PLATELET MORPHOLOGY NORMAL APPEARANCE (NORMAL); RBC MORPHOLOGY (MULTIPLE) 1+ HYPOCHROMASIA (NORMAL)
[2017-07-07] MEDS: PANTOPRAZOLE 40 MG TABLET PO SCH (07:22)
[2017-07-07 07:56] VITALS: BP 107/63
[2017-07-07] MEDS ORDERED: FERROUS GLUCONATE 324 MG TABLET PO SCH (08:00)
[2017-07-07] MEDS: INSULIN ASPART 300 UNIT/3 ML PEN SUBQ SCH (08:01)
--- NOTE | 2017-07-07 08:43 | Discharge Plan ---
Discharge Plan Disposition: 02 Transfer Acute Care Hosp Condition: Stable Diet: Soft Activity Restrictions: Activity as Tolerated Shower Restrictions: Yes (per surgeon) Driving Restrictions: Yes (per surgeon) No Smoking: If you smoke, Please STOP! Call for help.
--- NOTE | 2017-07-07 09:19 | DISCHARGE SUMMARY ---
"Discharge Summary Admit Date: 07/05/17 Discharge Date: 07/07/17 Discharging Provider: Jolanta Kaplan MD Primary Care Provider: Dick Pizano MD [address] [place] [address]. [phone] Code Status: Attempt Resuscitation Condition at Discharge: Stable Discharge Disposition: 02 Transfer Acute Care Hosp [facility] - DIAGNOSES Discharge Diagnoses with Status of Each Condition: health care associated pneumonia acute blood loss anemia loculated empyema supratheraputic INR chronic atrial fibrillation Type 2 DM , controlled, without complication, without senior care use of insulin. 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 The patient states that he was first hospitalized in April, in [place] where the patient is from, for pneumonia and was hospitalized there for 3-4 days. He states that he was feeling slightly better after that hospitalization and traveled to [facility] to visit his brother on , June 18, 2017. He states that after spending 3 days on [facility] he began developing worsening shortness of air and coughing and came to our emergency department. The patient was then hospitalized here at [facility] from 06/21/2017 till 06/27/2017 for healthcare associated pneumonia, loculated pleural effusion and influenza. During the hospitalization the patient had severe shortness of air, cough and was hypoxic requiring up to 4 L of oxygen. The patient initially did not appear to be improving and had his antibiotics spectrum broadened and was started on Tamiflu for treatment of influenza. The patient appeared to finally have some improvement and was down to room air at the time of discharge. The patient states that he was feeling better at discharge but at that time he still was not eating or drinking very well. The patient was discharged home on ciprofloxacin for 10 days and Tamiflu for 5 days. The patient was also given a prescription for Xopenex. The patient states that over the last 8 days initially he felt as though he was better but then over the last several days he states he has been having increasing shortness of breath. He states he is also been having increasing coughing. He states that he coughs anytime that he drinks or eats anything except bananas and granola bars. He states that the only thing he has been able to eat and due to that he has been coming weaker and weaker. The patient states that he is also becoming more lethargic and sleepy. He denies having had any fevers or chills at home but states that his coughing and shortness of air was just too much for him to handle and he came back into the emergency department today. On the patient's last hospitalization he was found to have a loculated pleural effusion and initially the plan was to drain the pleural effusion however the patient's INR was elevated and then it was over the New Year's weekend therefore there was no IR available and surgery refused to do the thoracentesis at that time because it could not be marked by ultrasound. The patient ended up improving therefore no thoracentesis was performed prior to his discharge. On presentation to the emergency department the patient is afebrile but he was tachycardic in hypotensive on presentation with a blood pressure of 86/61. The patient however was saturating well on room air and blood pressure did improve while he was in the emergency department. The patient's lab work did reveal a persistent leukocytosis of 13.8 which was increased from the time of discharge. The patient had an INR of 4.1 and his electrolytes were within normal limits. The patient did have a slightly elevated alkaline phosphatase which appears to have been chronically elevated. The patient's lactic acid was 2.3 and a repeat chest x-ray showed a stable mild right lower lobe and extensive left lower lobe infiltrate with likely left effusion. The patient also underwent a CT of his chest which revealed a multi lobar pneumonia with an enlarging now large loculated left pleural effusion and enhancing pleura. The imaging findings were concerning for empyema. Patient also had multiple mediastinal nodes. The emergency room physician spoke with the surgeon control room supervisor who agreed that she would be able to do a thoracentesis on the patient for aspiration of his loculated pleural effusion. The patient was admitted to the [facility] on IV antibiotics and will need reversal of his INR so he can be ready for a thoracentesis in the morning. - CONSULTS | PROCEDURES Consultations: Dr. Ariadna Clemons, General Surgery Procedures: Attempted Chest tube placement Transfusion of 2 units of FFP Vitamin K po and IV CT of chest with enlarging pneumonia and loculated pleural effusion concerning for empyema - HOSPITAL COURSE Hospital Course: (1) HCAP (healthcare-associated pneumonia) Impression: Patient initially had in April, in [place]. The patient was treated at that time but redeveloped pneumonia in May and was hospitalized again here at [facility] 06/21/18. At that time he was treated for healthcare associated pneumonia with pleural effusion and eventually was discharged home on ciprofloxacin. Because of lack of services, there was no thoracentesis or chest tube done then. Blood cultures were negative and sputum cultures were not helpful. The patient has been taking antibiotics at home for the last 8 days but symptoms have worsened. On presentation to the ER this admission, patient has persistent leukocytosis and tachycardia. The patient's chest x-ray shows worsening pneumonia and CT scan shows multifocal pneumonia with a loculated pleural effusion which is worsening from previous and is consistent with an empyema. The patient has history of myotonic dystrophy with history of dysphasia and it is concerning as patient's history reveals the patient is having coughing whenever he eats or drinks that patient may be having aspiration pneumonia. He was placed on broad-spectrum antibiotics with cefepime and clindamycin, Day # 3 today. Swallow study showed moderately impaired pharyngeal phase and diet changed to mechanical soft. He does aspirate liquids. Voice gets quite gurgly after drinking liquids. Surgical consult done for thoracentesis and aspiration of empyema and he did go the OR but the loculations impeded ability to drain all of the fluid. It is not clear if surgery sent cultures from the OR or not. There are no blood cultures from this admission. As such our surgeon consulted with outside specialty thoracic surgery and he recommends transfer with a hospitalist admitting and he will consult. I have contacted Dr. Juarez at [facility], and she has accepted the patient with Dr Kings Clemons consulting for thoracic surgery. His hemoglobin has drifted down to 7.9 and will need to be monitored for possible acute blood loss anemia. (2) Empyema Conclusion/Plan: The patient's CT shows a loculated pleural effusion concerning for empyema. Given the patient's recurrent pneumonias, leukocytosis, tachycardia and presentation with lactic acidosis, it is felt he does have a true empyema. The patient needs drainage of the empyema. (3) Elevated INR Conclusion/Plan: The patient has an elevated INR he is on Coumadin for atrial fibrillation and his ASD. 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 He was given Vitamin K orally then IV when his INR did not reverse enough . He was also given FFP. (4) Atrial fibrillation Conclusion/Plan: Patient has history of chronic atrial fibrillation and is on digoxin for rate control and Coumadin for anticoagulation. On presentation to the emergency department the patient is supratherapeutic with his INR with an INR of 4.1 He was continued on digoxin and rate was controlled. Qualifiers: Atrial fibrillation type: chronic Qualified Code(s): I48.2 - Chronic atrial fibrillation (5) Diabetes Conclusion/Plan: The patient has a history of type 2 diabetes and is on metformin and saxagliptin at home While patient was hospitalized he was placed on sliding scale insulin for a glucose before meals at bedtime. His glucose yesteray was 112, 147 and 106. This am on transfer it is 107. A1c is 8%. Greater than 30 minutes was spent coordinating discharge. - ALLERGIES Allergies/Adverse Reactions: Allergies Allergy/AdvReac Type Severity Reaction Status Date / Time Penicillins Allergy Intermediate Rash Verified 06/21/17 12:07 - MEDICATIONS Home Medications: Ambulatory Orders Medication Instructions Recorded Confirmed Aspirin [Adult Low Dose Aspirin EC] 81 mg PO DAILY 06/21/17 07/07/17 Bisoprolol Fumarate 10 mg PO DAILY 06/21/17 07/05/17 Digoxin 250 mcg PO DAILY 06/21/17 07/07/17 Saxagliptin HCl/Metformin HCl 2.5 - 1,000 mg PO DAILY 06/21/17 07/07/17 [Kombiglyze Xr 2.5-1,000 mg Tab] Warfarin Sodium [Coumadin] 2 mg PO DAILY 06/21/17 07/07/17 Levalbuterol Tartrate [Xopenex Hfa] 1 puffs INH Q4H PRN 07/07/17 07/07/17 - PHYSICAL EXAM AT DISCHARGE General Appearance: positive: No acute distress, Alert, Other (thin white male, unshaven) Eyes Bilateral: positive: PERRL ENT: positive: Pharynx nml, Other (dental carries) Neck: positive: No JVD. negative: Lymphadenopathy (R) (shotty), Lymphadenopathy (L) (shotty), Stiff neck, Carotid bruit Respiratory: positive: No respiratory distress, Rhonchi, Other (foam taped dressing to left anterior chest.). negative: Wheezes, Rales Cardiovascular: positive: Irregularly irregular, Systolic murmur. negative: Gallop/S4, Friction rub Peripheral Pulses: positive: 1+ Abdomen: positive: Non-tender, No organomegaly, Nml bowel sounds, No distention Skin: positive: Warm, Dry Extremities: positive: Full ROM, No pedal edema Neurologic/Psychiatric: positive: Oriented x3, CN's nml (2-12), Motor nml - LABS Result Diagrams: 07/07/17 05:30 07/07/17 05:30"
[2017-07-07] MEDS: BISOPROLOL FUMARATE 10 MG PO SCH (09:56)
[2017-07-07] MEDS: OSELTAMIVIR 75 MG CAPSULE PO SCH (09:56)
[2017-07-07] MEDS: DIGOXIN 125 MCG TABLET PO SCH (09:56)
== END 2017-07-07 10:45 | disposition short-term general hospital (02) | DRG 177 ==
LOC: ED 12:38 → MS2 17:51
PROVIDERS: ADMIT Internal Medicine; ATTEND Specialist
PROC: 30233K1 Transfusion of Nonautologous Frozen Plasma into Peripheral Vein, Percutaneous Approach (ICD-10-PCS; 2017-07-06)
PROC: 0BJQ3ZZ Inspection of Pleura, Percutaneous Approach (ICD-10-PCS; principal; 2017-07-06 13:00)
DX: J10.00 Influenza due to other identified influenza virus with unspecified type of pneumonia (principal); J18.9 Pneumonia, unspecified organism; D64.9 Anemia, unspecified; I48.91 Unspecified atrial fibrillation; J69.0 Pneumonitis due to inhalation of food and vomit; J86.9 Pyothorax without fistula; D62 Acute posthemorrhagic anemia; E87.2 Acidosis; E11.9 Type 2 diabetes mellitus without complications; Z79.01 Long term (current) use of anticoagulants; Y95 Nosocomial condition; I48.2 Chronic atrial fibrillation; Z87.74 Personal history of (corrected) congenital malformations of heart and circulatory system; G71.11 Myotonic muscular dystrophy; R13.13 Dysphagia, pharyngeal phase; Z79.82 Long term (current) use of aspirin; Z79.84 Long term (current) use of oral hypoglycemic drugs; Z88.0 Allergy status to penicillin; Z87.891 Personal history of nicotine dependence
CPT/HCPCS: 36415; 71045; 71046; 71260; 80048; 80053; 83036; 83605; 83690; 85025; 85610; 86850; 86900; 86901; 96361; 96365; 99283; 99285

== ENCOUNTER 2017-07-07 10:52 | Outpatient (CLI) | payer MEDICARE | END 2017-07-07 10:53 | disposition short-term general hospital (02) | LOC: EMS 10:52 | PROVIDERS: ATTEND Surgery | DX: J86.9 Pyothorax without fistula (principal); J18.9 Pneumonia, unspecified organism ==

== ENCOUNTER 2017-07-25 13:34 | Outpatient (CLI) | payer MEDICARE ==
[2017-07-25 17:47] LABS: INR 1.2 (0.8-1.2)
== END 2017-07-25 13:35 | disposition home or self-care (01) ==
LOC: LAB.R 13:34
PROVIDERS: ATTEND Nurse Practitioner Family
DX: I48.91 Unspecified atrial fibrillation (principal)
CPT/HCPCS: 85610

== ENCOUNTER 2017-07-30 10:55 | Outpatient (CLI) | payer MEDICARE | END 2017-07-30 10:56 | disposition home or self-care (01) | LOC: LAB.S 10:55 | PROVIDERS: ATTEND Nurse Practitioner Family | DX: I48.2 Chronic atrial fibrillation (principal); Z79.01 Long term (current) use of anticoagulants | CPT/HCPCS: 85610 ==

== ENCOUNTER 2017-07-30 12:50 | Outpatient (CLI) | payer MEDICARE ==
[2017-07-30 18:16] LABS: BASOPHILS # (AUTO) 0.1 10^3/uL (0.0-0.1); BASOPHILS % (AUTO) 1.5 %; EOSINOPHILS # (AUTO) 0.3 10^3/uL (0.0-0.7); EOSINOPHILS % (AUTO) 4.5 %; HGB - HEMOGLOBIN 9.5 g/dL (14.0-18.0); LYMPHOCYTES % (AUTO) 28.2 %; MEAN CORPUSCULAR HEMOGLOBIN 25.5 pg (27.0-31.0); MEAN CORPUSCULAR HGB CONC 30.9 g/dL (32.0-36.0); MEAN CORPUSCULAR VOLUME 82.7 fL (80.0-94.0); MEAN PLATELET VOLUME 9.2 fL (7.4-11.4); MONOCYTES # (AUTO) 0.7 10^3/uL (0.0-1.0); MONOCYTES % (AUTO) 10.2 %; NEUTROPHILS # (AUTO) 3.9 10^3/uL (1.5-6.6); NEUTROPHILS % (AUTO) 55.6 %; PLT - PLATELET COUNT 372 10^3/uL (130-450); RED BLOOD COUNT 3.71 10^6/uL (4.70-6.10); RED CELL DISTRIBUTION WIDTH 21.8 % (12.0-15.0); WHITE BLOOD COUNT 7.1 x10^3/uL (4.8-10.8)
[2017-07-30 18:36] LABS: CRP - C-REACTIVE PROTEIN 1.5 mg/dL (0-1.0)
[2017-07-30 19:15] LABS: ALBUMIN/GLOBULIN RATIO 0.6 (1.0-2.2); BILIRUBIN,TOTAL 0.4 mg/dL (0.2-1.0); CALCIUM 9.8 mg/dL (8.5-10.3); CREATININE 0.9 mg/dL (0.6-1.2)
[2017-07-30 20:47] LABS: PLATELET ESTIMATE, MANUAL NORMAL (130-450,000) (NORMAL); PLATELET MORPHOLOGY NORMAL APPEARANCE (NORMAL)
== END 2017-07-30 12:51 | disposition home or self-care (01) ==
LOC: LAB.F 12:50
PROVIDERS: ATTEND Internal Medicine Infectious Disease
DX: E11.9 Type 2 diabetes mellitus without complications (principal); J86.9 Pyothorax without fistula; I48.2 Chronic atrial fibrillation; Z79.01 Long term (current) use of anticoagulants
CPT/HCPCS: 36415; 80053; 85025; 85610; 85651; 86140

== ENCOUNTER 2017-08-17 10:25 | Outpatient (CLI) | payer MEDICARE | END 2017-08-17 10:26 | disposition home or self-care (01) | LOC: LAB.R 10:25 | PROVIDERS: ATTEND Nurse Practitioner Family | DX: K52.1 Toxic gastroenteritis and colitis (principal) | CPT/HCPCS: 87045; 87046; 87493 ==

== ENCOUNTER 2017-08-22 08:55 | Outpatient (CLI) | payer MEDICARE ==
--- NOTE | 2017-08-22 12:53 | XRAY Report ---
MODIFIED BARIUM SWALLOW: 08/22/2017 CLINICAL INDICATION: Aspiration, muscular dystrophy. FINDINGS: Various consistencies of barium were prepared and administered in conjunction with Speech Pathology. There was very slow initiation of swallow and slow clearance of applesauce from the hypopharynx. Thin liquids produced immediate aspiration. At this point, the examination was terminated. Please also refer to full report from Speech Pathology. IMPRESSION: ANNA ASPIRATION WITH THIN LIQUIDS. MARKEDLY PROLONGED RETENTION OF APPLESAUCE IN THE HYPOPHARYNX. FLUOROSCOPY TIME: One minute 20 seconds; 1 spot image obtained ( cinefluoroscopy recorded). TD: 08/22/2017 12:52 MTDD
== END 2017-08-22 08:56 | disposition home or self-care (01) ==
LOC: DI 08:55
PROVIDERS: ATTEND Nurse Practitioner Family
DX: T17.920A Food in respiratory tract, part unspecified causing asphyxiation, initial encounter (principal); G71.0 Muscular dystrophy; Z93.1 Gastrostomy status; M62.89 Other specified disorders of muscle
CPT/HCPCS: 74230